=== PATIENT | female | born 1990 | race Caucasian/White ===

== ENCOUNTER 2021-02-21 11:00 | Emergency (ER) | payer SELFPAY ==
[2021-02-21 11:07] VITALS: BP 127/88; PULSE 85; RESP 16; TEMP 36.8; O2SAT 99
[2021-02-21 11:12] VITALS: BP 127/88; PULSE 85; RESP 16; TEMP 36.8; O2SAT 99
--- NOTE | 2021-02-21 11:33 | ED.EAR ---
HPI - Ear Problem General Chief complaint: Ear Stated complaint: ear pain/quintero Time Seen by Provider: 02/21/21 11:17 Source: patient and RN notes reviewed Mode of arrival: ambulatory Limitations: no limitations History of Present Illness HPI Narrative: Patient presents today with a 1 week history of right ear pain. Denies decreased hearing. Reports pain started after she had been swimming a lot on vacation. Denies drainage from the ear. She has been taking Tylenol without relief. Currently rates her pain 8/10. Believed initially that her pain was due to a migraine, but had taken her rescue migraine medication without relief as well. Denies any sick symptoms to include congestion, rhinorrhea, sore throat. MD Complaint: ear pain Related Data Home Medications Medication Instructions Recorded Confirmed erenumab-aooe 140 mg/mL 140 mg SUBCUT MONTHLY 05/18/20 02/21/21 subcutaneous auto-injector propranolol 20 mg tablet 20 mg PO Q12H 05/18/20 02/21/21 sumatriptan succinate 100 mg tablet See Rx Instructions PO .COMPLEX 05/18/20 02/21/21 Allergies Allergy/AdvReac Type Severity Reaction Status Date / Time amitriptyline Allergy Unknown Hallucinati Verified 02/21/21 11:11 ons Sulfa (Sulfonamide Allergy Unknown Unknown Verified 02/21/21 11:11 Antibiotics) sulfasalazine Allergy Unknown Hallucinati Verified 02/21/21 11:11 ons Review of Systems Review of Systems: Narrative: CONSTITUTIONAL: Denies body aches, fever, chills, or sweats. EYES: Denies visual changes, redness, or discharge. ENT: Denies rhinorrhea, congestion, sore throat. + Right ear pain CARDIOVASCULAR: Denies chest pain, palpitations, or edema. RESPIRATORY: Denies cough or dyspnea. GASTROINTESTINAL: Denies abdominal pain, nausea, vomiting, or diarrhea. GENITOURINARY: Denies dysuria or hematuria. SKIN: Denies rash, itching, or wounds. MUSCULOSKELETAL: Denies back pain, joint pain, or myalgia. NEUROLOGIC: Denies headache, numbness, tingling, or weakness. PSYCH: Denies depression or anxiety. [facility] Past Medical History Medical History Anxiety Intermittent asthma without complication Migraine, unspecified, intractable, with status migrainosus Family History Family History Father Diabetes mellitus Hypertension Family history of malignant neoplasm Mother Hypertension Social History Social History Smoking status: Former smoker Alcohol intake: never Comments At time of signature, I have reviewed and agree with nursing past medical, surgical, social and family history unless otherwise noted. Please see nursing chart for further information. There is no relevant family history pertinent to the presenting complaint Exam Narrative: Exam Narrative: GENERAL: Well-appearing, well-nourished, and in no acute distress. HEAD: Normocephalic, atraumatic. EYES: EOMI. No redness or drainage. Conjunctivae normal. ENT: Mucous membranes pink and moist. Nares clear. No rhinorrhea. Left TM normal. Right TM is dull and severely bulging. Canal is normal. Patient localizes her pain to the area of the eustachian tube. Throat normal. Uvula midline. NECK: Normal AROM. Supple. No lymphadenopathy. CHEST: No respiratory distress. Clear to auscultation. HEART: Regular rate and rhythm. No murmur appreciated. Normal peripheral pulses. EXTREMITIES: Normal range of motion. No edema. SKIN: Warm, dry, no rash. Capillary refill normal. Normal skin turgor. NEURO: No focal deficits. Alert and oriented x3. Gait steady. PSYCH: Normal affect. No signs of depression or anxiety. Course Vital Signs Vital signs: Vital Signs Temperature 98.2 F 02/21/21 11:07 Pulse Rate 85 02/21/21 11:07 Respiratory Rate 16 02/21/21 11:07 Blood Pressure 127/88 02/21/21 11:07 Pulse
== END 2021-02-21 11:43 | disposition home or self-care (01) ==
PROVIDERS: Emergency Provider Nurse Practitioner
DX: H66.91 Otitis media, unspecified, right ear (principal); F41.9 Anxiety disorder, unspecified; J45.909 Unspecified asthma, uncomplicated
CPT/HCPCS: 99213; G0463

== ENCOUNTER → 2021-07-21 09:40 | Outpatient (CLI) | payer OTHER, SELFPAY ==
[2021-07-21 19:47] LABS: SARS-CoV-2 RNA PCR Negative
== END ==
PROVIDERS: PCP Nurse Practitioner; Visit Provider Nurse Practitioner Family
DX: J02.9 Acute pharyngitis, unspecified (principal); Z20.822 Contact with and (suspected) exposure to COVID-19
CPT/HCPCS: C9803; U0003; U0005

== ENCOUNTER 2022-05-06 06:43 | Emergency (ER) | payer OTHER, SELFPAY ==
--- NOTE | ~2022-05-06 | CT_ITS ---
EXAMINATION: CTA brain carotid DATE: 05/06/2022 10:53 CDT INDICATION: Left-sided vision loss and numbness. TECHNIQUE: Computed tomographic angiography (CTA) of the head was performed with 200 mL Omnipaque-350 intravenous contrast. CTA of the neck was performed with intravenous contrast. The dose-length produ ct was 1044.76 mGy-cm. Maximum intensity projection and volume rendered 3D-reconstructions were creat ed by the technologist on a separate workstation. COMPARISON: CT dated 05/06/2022. FINDINGS: HEAD CTA: MRA OF THE BRAIN FINDINGS: There is relatively normal and symmetrical flow seen within the anterior cerebral, middle c erebral and posterior cerebral arteries. The flow signals within the intracranial segments of the in ternal carotid arteries and the basilar artery are within normal limits. There are no focal abnormal ities to suggest a hemodynamically significant stenosis or aneurysm about the false pass of Ramos. NECK CTA: The aortic arch is unremarkable. The vertebral arteries are symmetric without evidence for significant stenosis, occlusion or dissection. The vertebral arteries are codominant. The common, int ernal and extra carotid arteries are within normal limits. No significant stenosis, occlusion or diss ection. Thyroid gland is unremarkable. Lung apices are unremarkable. Orbits are symmetric. There is d isconjugate gaze. There is 0% stenosis of the proximal right internal carotid artery relative to normal distal artery l umen diameter (NASCET criteria). There is 0% stenosis of the proximal left internal carotid artery re lative to normal distal artery lumen diameter. IMPRESSION: 1: Unremarkable CT angiography of the head and neck. No significant stenosis, occlusion, dissection o r aneurysm. Reviewed, dictated and finalized at location A. IMPRESSION: 1: Unremarkable CT angiography of the head and neck. No significant stenosis, o cclusion, dissection or aneurysm.
--- NOTE | ~2022-05-06 | CT_ITS ---
EXAMINATION: CT BRAIN W/O DATE: 05/06/2022 07:45 INDICATION: Headache. TECHNIQUE: Computed tomography (CT) of the head was performed without intravenous contrast. The dose- length product was 529.67 mGy-cm. Automated exposure control and iterative reconstruction technique w ere employed. COMPARISON: No prior studies for comparison. FINDINGS: Normal brain parenchymal volume for age. Normal costa-white differentiation. No acute intrac ranial hemorrhage, infarction, mass or mass effect. No ventriculomegaly or midline shift. Midline sagittal images demonstrate a normal corpus callosum, c raniovertebral junction and sella turcica. Basilar cisterns are patent. Paranasal sinuses and mastoids are pneumatized. No depressed skull fractures. IMPRESSION: 1. No acute intracranial abnormality. Reviewed, dictated and finalized at location A.
--- NOTE | ~2022-05-06 | CT_ITS ---
EXAMINATION: CT abdomen pelvis w con DATE: 05/06/2022 10:35 INDICATION: Right-sided abdomen pain. TECHNIQUE: Computed tomography (CT) of the abdomen and pelvis was performed with 200 cc Omnipaque 350 intravenous contrast. The dose-length product was 1024.79 mGy-cm. Automated exposure control and ite rative reconstruction technique were employed. COMPARISON: None. FINDINGS: Lung bases are unremarkable. No significant pleural or pericardial effusion. Heart size is normal. No significant vascular abnormality. No lymphadenopathy. There are gallstones. There is hepat ic steatosis. Mild gallbladder wall thickening. Consider cholecystitis in the appropriate clinical se tting. There is a small subcentimeter hypodensity of the right hepatic lobe, most likely benign. The spleen, pancreas, adrenal glands and kidneys are unremarkable. Nonobstructive bowel pattern. Ureters are normal in course and caliber. Bladder is unremarkable. No abnormal pelvic masses or fluid collect ions. No acute osseous abnormality. IMPRESSION: 1. Cholelithiasis with mild gallbladder wall thickening. Consider cholecystitis in the appropriate cl inical setting. Reviewed, dictated and finalized at location A. IMPRESSION: 1. Cholelithiasis with mild gallbladder wall thickening. Consider cholecystitis in the appropriate clinical setting.
--- NOTE | ~2022-05-06 | XR_ITS ---
EXAMINATION: XR chest 1V portable 05/06/2022 08:12 INDICATION: Right lower chest pain PROCEDURE: AP portable chest COMPARISON: No prior studies for comparison. FINDINGS: The lungs are clear. The cardiomediastinal silhouette is within normal limits. There are no pleural effusions. There is no pneumothorax suspected. IMPRESSION: 1: NO ACUTE CARDIOPULMONARY DISEASE. Reviewed, dictated and finalized at location A.
[2022-05-06 06:48] VITALS: BP 156/87; PULSE 53; RESP 18; TEMP 36.5; O2SAT 100
--- NOTE | 2022-05-06 07:12 | ECG_ITS ---
Measurements Intervals [place] Rate: 60 P: 26 NC: 136 QRS: 28 QRSD: 86 T: 64 QT: 394 QTc: 394 Interpretive Statements SINUS RHYTHM WITH SINUS ARRHYTHMIA NORMAL ECG NO PREVIOUS ECG AVAILABLE FOR COMPARISON Electronically Signed On 05-06-2022 7:52:13 CDT by Acosta Stallings M.D.
--- NOTE | 2022-05-06 07:17 | ED.GENADULT ---
HPI - General Adult General Chief complaint: Unspecified Stated complaint: generalized bodyaches Time Seen by Provider: 05/06/22 07:03 Source: RN notes reviewed History of Present Illness HPI narrative: Patient presents emergency department from home for multiple complaints. Patient states that symptoms began approximately midnight tonight. States at that time she developed pain in her right upper back that radiated down into her right abdomen described as sharp and stabbing's been associated with nausea and vomiting times multiple times. Patient states that associated with this she has had she has numbness that extends from her bilateral mid forearms down to her hands she states that she then developed loss of vision out of the left peripheral half of her left eye she states that she has had recurrent episodes of pain that starts in her spine and goes around to her abdomen with nausea vomiting with the numbness in her hands and that she has been evaluated by neurology before [facility] the [facility] and is now [facility] neurology at [facility]. She states that the loss of vision on the left half of her eye is a new symptom to her today patient not taking medication at home for the symptoms she denies any weakness of the extremities she denies any facial droop or slurred speech she does states she has a history of migraines Related Data Home Medications Medication Instructions Recorded Confirmed erenumab-aooe 140 mg/mL 140 mg subcut MONTHLY 05/18/20 11/21/21 subcutaneous auto-injector (Aimovig Autoinjector) sumatriptan succinate 100 mg See Rx Instructions PO .COMPLEX 05/18/20 11/21/21 tablet (Imitrex) ubrogepant 100 mg tablet (Ubrelvy) 100 mg PO ONCE 06/28/21 11/21/21 cyclobenzaprine 10 mg tablet 10 mg PO TID 11/21/21 11/21/21 lorazepam 1 mg tablet (Ativan) 1 mg PO DAILY PRN 11/21/21 11/21/21 oxycodone 10 mg tablet 10 mg PO Q8H PRN 11/21/21 11/21/21 Allergies Allergy/AdvReac Type Severity Reaction Status Date / Time Sulfa (Sulfonamide Allergy Unknown Unknown Verified 05/06/22 06:58 Antibiotics) amitriptyline AdvReac Unknown Hallucinati Verified 05/06/22 07:15 ons sulfasalazine AdvReac Unknown Hallucinati Verified 05/06/22 07:15 ons Review of Systems Review of Systems: Gen.: Denies fevers or chills Eyes: See HPI ENT: Denies congestion Respiratory: Denies shortness of breath or cough CV: Denies chest pain or palpitations GI: Reports abdominal pain nausea vomiting denies diarrhea denies burning, urgency, frequency or hematuria Musculoskeletal: Denies back pain or muscle pain Neuro: Reports numbness from the bilateral mid forearms down through the hands Skin: Denies rash Except as documented, all other systems reviewed and negative [facility] Past Medical History Medical History Anxiety Intermittent asthma without complication Migraine, unspecified, intractable, with status migrainosus Surgical History Surgical History History of decompression of ulnar nerve Family History Family History Father Diabetes mellitus Hypertension Family history of malignant neoplasm Mother Hypertension Social History Social History Smoking status: Former smoker Alcohol intake: never Exam Narrative: APPEARANCE: No acute distress, nontoxic, resting in bed HEENT: Normocephalic, atraumatic, OMM, TMs clear bilaterally EYES: PERRL, EOMI no conjunctival erythema the right eye with full visual negrete the left eye has loss of the lateral visual negrete NECK: Supple, nontender, full range of motion without pain, no meningismus RESPIRATORY: No respiratory distress, clear to auscultation bilaterally with no rhonchi wheezing or rales CARDIOVASCULAR: RRR s murmur ABDOMINAL: Soft, nondistend
[2022-05-06 08:09] LABS: Add Urine Microscopic? YES; Appearance Urine Cloudy (Clear); Bacteria Urine Trace /hpf; Bilirubin Urine Negative (Negative); Blood Urine Negative (Negative); Color Urine Yellow (Yellow); Glucose Urine UA Negative (Negative); Ketones Urine Trace mg/dL (Negative); Leukocyte Esterase Ur Negative LEU/UL (Negative); Mucus Urine Few /lpf; Nitrate Urine Negative (Negative); Protein Urine Negative (Negative); Specific Grav Ur 1.015 (1.001-1.035); Squamous Epithelial Cell Urine Rare /hpf (Few); Urobilinogen Urine Negative mg/dL (<2.0); WBC Urine 0-3 /hpf
[2022-05-06 08:10] LABS: Basophils Percent Auto 0.4 % (0.2-1.2); Eosinophils Absolute Auto 0.1 K/mm3 (0-0.3); Eosinophils Percent Auto 0.7 % (0-4.4); Hematocrit 43.3 % (37.0-47.0); Hemoglobin 15.2 g/dL (12.0-15.0); Immature Granulocyte Absolute 0.05 K/mm3 (0.00-0.031); Immature Granulocyte Percent A 0.5 % (0-0.5); Lymphocytes Absolute Auto 1.37 K/mm3 (0.9-3.2); Lymphocytes Percent Auto 13.1 % (18.3-44.2); Mean Corpuscular HGB Conc 35.1 g/dl (32-36); Mean Corpuscular Hemoglobin 31.2 pg (26-34); Mean Corpuscular Volume 88.9 fl (80-100); Mean Platelet Volume 9.4 fl (7.4-10.4); Monocytes Absolute Auto 0.5 K/mm3 (0.1-0.6); Monocytes Percent Auto 4.3 % (2.6-8.5); Neutrophils Absolute Auto 8.4 K/mm3 (1.3-6.7); Platelet Count Result 321 k/mm3 (150-375); Red Blood Count 4.87 M/mm3 (4.2-5.4); Red Cell Distribution Width 12.4 % (11.5-14.5); White Blood Count 10.4 K/mm3 (4.5-10.0)
[2022-05-06 08:20] LABS: Alanine Aminotransferase 39 U/L (6-35); Albumin Level 4.9 g/dL (3.5-5.1); Alkaline Phosphatase 75 U/L (38-126); Anion Gap 12 mmol/L (8-16); Aspartate Amino Transferase 33 U/L (14-36); Bilirubin,Total 0.6 mg/dL (0.2-1.3); Blood Urea Nitrogen 9 mg/dL (7-17); Calcium 9.3 mg/dL (8.4-10.2); Carbon Dioxide 26 mmol/L (22-30); Chloride 102 mmol/L (98-107); Estimated CRCL calculation 96 ml/min; Estimated Glomerular Filt Rate > 60; Glucose 122 mg/dL (65-110); Lipase 44 U/L (23-300); Potassium 3.6 mmol/L (3.4-5.0); Sodium 140 mmol/L (137-145)
[2022-05-06 08:24] LABS: INR 0.9; Prothrombin Time 12.2 Seconds (11.1-14.7)
[2022-05-06 08:25] LABS: Partial Thromboplastin Time 26.7 SECONDS (22.3-36.8)
[2022-05-06 08:31] LABS: Troponin I < 0.012 ng/mL (0.000-0.034)
[2022-05-06] MEDS: ONDANSETRON INJ 4 MG/2 ML VIAL IV PUSH ×2 (08:37→16:04)
[2022-05-06] MEDS: SODIUM CHLORIDE 0.9% IV 1,000 ML 999 ML IV CONT (08:38)
[2022-05-06] MEDS: MORPHINE SULFATE (*CRX) 2 MG/ML INJ IV PUSH ×2 (11:31→12:15)
[2022-05-06 11:37] VITALS: BP 103/77; PULSE 92; RESP 14; O2SAT 98
[2022-05-06 12:18] VITALS: BP 122/93; PULSE 111; RESP 15; O2SAT 98
--- NOTE | 2022-05-06 13:50 | PC.NURSE ---
attempted to have pt transferred to [place] per her request. [place] transfer access line states they are refusing any pt's unless they are a trauma case. Pt & Dr Bhatt informed of refusal of transfer.
[2022-05-06 14:35] VITALS: BP 122/93; PULSE 112; RESP 14; O2SAT 97
[2022-05-06] MEDS: SODIUM CHLORIDE 0.9% IV 1,000 ML 125 ML IV CONT (15:10)
[2022-05-06 15:11] VITALS: BP 108/76; PULSE 80; RESP 16; O2SAT 98
[2022-05-06 15:52] LABS: SARS-CoV-2 RNA PCR Negative
[2022-05-06] MEDS: MORPHINE SULFATE (*CRX) 4 MG/ML INJ IV PUSH (16:04)
[2022-05-06 17:40] VITALS: BP 121/80; PULSE 84; RESP 18; O2SAT 99
--- NOTE | 2022-05-06 19:08 | PC.NURSE ---
[facility] (formerly [facility] here
== END 2022-05-06 19:20 | disposition short-term general hospital (02) ==
PROVIDERS: Emergency Provider Emergency Medicine; PCP Nurse Practitioner
DX: K80.00 Calculus of gallbladder with acute cholecystitis without obstruction (principal); R20.2 Paresthesia of skin; H53.122 Transient visual loss, left eye; Z20.822 Contact with and (suspected) exposure to COVID-19; J45.20 Mild intermittent asthma, uncomplicated; F41.9 Anxiety disorder, unspecified; Z87.891 Personal history of nicotine dependence
CPT/HCPCS: 36415; 70450; 70496; 70498; 71045; 74177; 80053; 81001; 81025; 83690; 84484; 85025; 85610; 85730; 93005; 96361; 96365; 96367; 96375; 96376; 99285; C9803; J0131; J2270; J2405; J2543; J7030; Q9967; U0003; U0005

== ENCOUNTER 2023-02-23 09:22 | Outpatient (CLI) | payer OTHER, SELFPAY ==
[2023-02-23 18:17] LABS: Alanine Aminotransferase 48 U/L (6-35); Albumin Level 4.4 g/dL (3.5-5.1); Alkaline Phosphatase 60 U/L (38-126); Anion Gap 7 mmol/L (8-16); Aspartate Amino Transferase 41 U/L (14-36); Blood Urea Nitrogen 7 mg/dL (7-17); Calcium 8.9 mg/dL (8.4-10.2); Carbon Dioxide 28 mmol/L (22-30); Chloride 102 mmol/L (98-107); Cholesterol 177 mg/dL (0-200); Estimated Glomerular Filt Rate > 60; Glucose 91 mg/dL (65-110); HDL Direct 41 mg/dL; Potassium 3.7 mmol/L (3.4-5.0); Sodium 137 mmol/L (137-145); Triglycerides 98 mg/dL (<150)
[2023-02-23 18:24] LABS: Basophils Absolute Auto 0.1 K/mm3 (0.0-0.1); Basophils Percent Auto 0.8 % (0.2-1.2); Eosinophils Absolute Auto 0.1 K/mm3 (0-0.3); Hematocrit 44.4 % (37.0-47.0); Hemoglobin 15.2 g/dL (12.0-15.0); Immature Granulocyte Absolute 0.02 K/mm3 (0.00-0.031); Immature Granulocyte Percent A 0.3 % (0-0.5); Lymphocytes Absolute Auto 2.14 K/mm3 (0.9-3.2); Lymphocytes Percent Auto 34.9 % (18.3-44.2); Mean Corpuscular HGB Conc 34.2 g/dl (32-36); Mean Corpuscular Hemoglobin 30.9 pg (26-34); Mean Corpuscular Volume 90.2 fl (80-100); Monocytes Absolute Auto 0.4 K/mm3 (0.1-0.6); Monocytes Percent Auto 6.7 % (2.6-8.5); Neutrophils Absolute Auto 3.4 K/mm3 (1.3-6.7); Neutrophils Percent Auto 55.3 % (45.5-73.1); Platelet Count Result 325 k/mm3 (150-375); Red Blood Count 4.92 M/mm3 (4.2-5.4); Red Cell Distribution Width 12.2 % (11.5-14.5); White Blood Count 6.1 K/mm3 (4.5-10.0)
[2023-02-23 18:44] LABS: Thyroid Stimulating Hormone 0.709 uIU/mL (0.465-4.680)
[2023-02-23 19:41] LABS: LDL Cholesterol Direct 109 mg/dL
[2023-02-23 19:54] LABS: Hemoglobin A1C 5.4 % (<5.7)
== END 2023-02-23 09:23 | disposition home or self-care (01) ==
LOC: ANHGOSHLAB 09:23
PROVIDERS: PCP Family Medicine; Visit Provider Nurse Practitioner Family
DX: Z00.00 Encounter for general adult medical examination without abnormal findings (principal); R73.09 Other abnormal glucose
CPT/HCPCS: 36415; 80053; 80061; 83036; 84443; 85025

== ENCOUNTER 2023-05-17 10:49 | Outpatient (CLI) | payer OTHER, SELFPAY ==
[2023-05-17 19:11] LABS: Vitamin D 25 Hydroxy 34.4 ng/mL
[2023-05-17 19:32] LABS: Alanine Aminotransferase 49 U/L (6-35); Albumin Level 4.8 g/dL (3.5-5.1); Alkaline Phosphatase 56 U/L (38-126); Anion Gap 8 mmol/L (8-16); Aspartate Amino Transferase 40 U/L (14-36); Blood Urea Nitrogen 10 mg/dL (7-17); Calcium 9.1 mg/dL (8.4-10.2); Carbon Dioxide 28 mmol/L (22-30); Chloride 101 mmol/L (98-107); Estimated Glomerular Filt Rate > 60; Glucose 103 mg/dL (65-110); Potassium 3.7 mmol/L (3.4-5.0); Sodium 137 mmol/L (137-145)
== END 2023-05-17 10:50 | disposition home or self-care (01) ==
LOC: ANHGOSHLAB 10:50
PROVIDERS: PCP Family Medicine; Visit Provider Family Medicine
DX: R74.8 Abnormal levels of other serum enzymes (principal); E53.8 Deficiency of other specified B group vitamins; E55.9 Vitamin D deficiency, unspecified
CPT/HCPCS: 36415; 80053; 82306; 82607

== ENCOUNTER 2024-07-21 15:29 | Outpatient (CLI) | payer OTHER, SELFPAY ==
--- NOTE | ~2024-07-21 | US_ITS ---
Right neck ULTRASOUND Ordering provider: Sloane Max MD History: . R59.0 - Localized enlarged lymph nodes . Comparison: None. FINDINGS/impression: No masses seen. Small lymph node is seen in the posterior neck measuring 0.6 x 0.7 x 0.2 cm Reviewed, dictated and finalized at location A. [employer]
== END 2024-07-21 15:30 | disposition home or self-care (01) ==
PROVIDERS: PCP Family Medicine; Visit Provider Family Medicine
DX: R59.0 Localized enlarged lymph nodes (principal)
CPT/HCPCS: 76536

== ENCOUNTER 2024-08-17 08:06 | Emergency (ER) | payer OTHER, SELFPAY ==
[2024-08-17 08:16] VITALS: BP 119/86; PULSE 103; RESP 18; TEMP 36.6; O2SAT 99
[2024-08-17 08:24] LABS: EDUAAPPEAR Clear; EDUABILI 1+ (Negative); EDUABLOOD 1+ (Negative); EDUACOLOR1 Amber; EDUAGLUCOSE Negative (Negative); EDUAKETONE 2+ (Negative); EDUALEUKO Negative (Negative); EDUANITRATE Negative (Negative); EDUAPH 5.5; EDUAPROTEIN Trace (Negative); EDUAUROBILI 0.2
--- NOTE | 2024-08-17 08:33 | ED_ITS ---
HPI - Female Genitourinary General Chief complaint: Urogenital-Female Stated complaint: Uti Symptoms Time Seen by Provider: 08/17/24 08:16 Source: patient and RN notes reviewed Mode of arrival: ambulatory Limitations: no limitations History of Present Illness HPI Narrative: Patient presents today complaining of a 2 day history of suprapubic discomfort, urinary frequency with decreased urine output, and urethral discomfort after urinating. She has tried no [id number] treatment prior to arrival. Related Data Home Medications ?Medication ?Instructions ?Recorded ?Confirmed ?Last Taken ?Type erenumab-aooe 140 mg/mL 140 mg subcut MONTHLY 05/18/20 08/17/24 Unknown History subcutaneous auto-injector (Aimovig Autoinjector) sumatriptan succinate 100 mg See Rx Instructions PO .COMPLEX 05/18/20 07/17/24 Unknown History tablet (Imitrex) ubrogepant 100 mg tablet (Ubrelvy) 100 mg PO ONCE PRN 01/18/24 07/17/24 Unknown History Allergies Allergy/AdvReac Type Severity Reaction Status Date / Time Sulfa (Sulfonamide Allergy Unknown Unknown Verified 08/17/24 08:23 Antibiotics) amitriptyline AdvReac Unknown Hallucinati Verified 08/17/24 08:23 ons sulfasalazine AdvReac Unknown Hallucinati Verified 08/17/24 08:23 ons Review of Systems Review of Systems: CONSTITUTIONAL: Denies body aches, fever, chills, or sweats. EYES: Denies visual changes, redness, or discharge. ENT: Denies rhinorrhea, congestion, sore throat, or otalgia. CARDIOVASCULAR: Denies chest pain, palpitations, or edema. RESPIRATORY: Denies cough or dyspnea. GASTROINTESTINAL: Denies abdominal pain, nausea, vomiting, or diarrhea. GENITOURINARY: + suprapubic pain, frequency, decreased urine output, pain after urinating SKIN: Denies rash, itching, or wounds. MUSCULOSKELETAL: Denies back pain, joint pain, or myalgia. NEUROLOGIC: Denies headache, numbness, tingling, or weakness. PSYCH: Denies depression or anxiety. [facility] Past Medical History Medical History Attention deficit disorder (ADD) Anxiety Intermittent asthma without complication Migraine, unspecified, intractable, with status migrainosus Surgical History Surgical History History of cholecystectomy History of decompression of ulnar nerve Family History Family History Father Diabetes mellitus Hypertension Family history of malignant neoplasm Mother Hypertension Social History Social History Social History: Caffeine- coffee Smoking status: Former smoker Alcohol intake: never Substance use: never Substance use type: does not use Lack of Transportation: No Lack of Food: Never True Current Housing: I Have Housing Concerned About Future Housing: No Difficulty Paying Gas/Electric Bills: No Difficulty Paying for Meds: No Currently Unemployed: No Education: High School Diploma/GED Difficulty w/ Childcare or Family Care: No Agree to blood products: Yes Comments At time of signature, I have reviewed and agree with nursing past medical, surgical, social and family history unless otherwise noted. Please see nursing chart for further information. There is no relevant family history pertinent to the presenting complaint Exam Narrative: GENERAL: Well-appearing, well-nourished, and in no acute distress. HEAD: Normocephalic, atraumatic. EYES: EOMI. No redness or drainage. Conjunctivae normal. ENT: Mucous membranes pink and moist. NECK: Normal AROM. CHEST: No respiratory distress. Clear to auscultation. HEART: Regular rate and rhythm. No murmur appreciated. Normal peripheral pulses. ABDOMEN: Soft, nondistended, normal active bowel sounds. -CVAT+ suprapubic tenderness EXTREMITIES: Normal range of motion. No edema. SKIN: Warm, dry, no rash. Capillary refill normal. Normal skin turgor. NEURO: No focal deficits. Alert and oriented x3. Gait steady. PSYCH: Normal affect. No signs of depression or anxiety. Course Course Level of Care: Express Care Visit Vital Signs Vital signs: Vital Signs Temperature 98 F 08/17/24 08:16 Pulse Rate 103 H 08/17/24 08:16 Respiratory Rate 18 08/17/24 08:16 Blood Pressure 119/86 08/17/24 08:16 Pulse Oximetry 99 08/17/24 08:16 Temperature 98 F 08/17/24 08:16 Pulse Rate 103 H 08/17/24 08:16 Respiratory Rate 18 08/17/24 08:16 Blood Pressure 119/86 08/17/24 08:16 Pulse Oximetry 99 08/17/24 08:16 Reviewed MDM - Female Genitourinary MDM Narrative Medical decision making narrative: Urine negative. Urinalysis shows trace protein, 1+ blood, 2+ ketones and bilirubin, along with patient's complaints and exam, is consistent with UTI. She will be started on a course of Augmentin. Urine culture pending. Anticipatory guidance given. Differential Diagnosis Differential diagnosis: Likely urinary tract infection, vaginitis and cystitis Lab Data Attestation: I reviewed the patient's lab results. Labs: Lab Results 08/17/24 Range/Units 08:21 POC Urine Color Hafsa POC Urine Clarity Clear POC Urine pH 5.5 POC Ur Specif [place] 1.030 POC Urine Protein Trace (Negative) POC Ur Glucose (UA) Negative (Negative) POC Urine Ketones 2+ (Negative) POC Urine Blood 1+ (Negative) POC Urine Nitrite Negative (Negative) POC Urine Bilirubin 1+ (Negative) POC Urine Urobilinogen 0.2 POC U Leukocyte Esteras Negative (Negative) Critical Care Time Critical Care Time Critical Care Time: No Discharge Plan Discharge Clinical Impression: Urinary tract infection Qualifiers: Urinary tract infection type: acute cystitis Hematuria presence: with hematuria Qualified Code(s): N30.01 - Acute cystitis with hematuria Patient Disposition: Home, Self-Care Condition: Stable Instructions: Antibiotic Form, Urinary Tract Infection in Women (ED) Additional Instructions: Your urine shows infection today. Take Augmentin as prescribed until gone. Your urine will be sent of for a culture to identify what type of bacteria is causing your infection. If the culture shows that your medication will not get rid of your infection, you will be notified and a new antibiotic will be called in for you. If your symptoms worsen to include fever, sweats, chills, nausea, vomiting, severe abdominal or back pain, please go to the ER for further evaluation. You may also try some Azo or Uristat for discomfort. Your blood pressure was elevated above 120/80 today at Urgent Care. This puts you above the threshold for follow up. Please schedule a followup visit with your personal physician as soon as possible, for further evaluation and treatment. Even blood pressure exceeding 120/80 may indicate pre-hypertension. Patient Language: Georgian Prescriptions: New amoxicillin-pot clavulanate 875-125 mg tablet 1 tablet PO Q12H 7 Days Qty: 14 0RF No Action Aimovig Autoinjector 140 mg/mL auto-injector 140 mg subcut MONTHLY sumatriptan succinate [Imitrex] 100 mg tablet See Rx Instructions PO .COMPLEX Rx Instructions: take 1 tab at onset of headache; if no relief, may repeat 1 tab after at least 2 hrs; max = 2 tabs/24 hrs PO albuterol sulfate [ProAir HFA] 90 mcg/actuation HFA aerosol inhaler 1 inh inhalation Q4H PRN (Reason: shortness of breath or wheezing) Qty: 6.7 5RF Ubrelvy 100 mg tablet 100 mg PO ONCE PRN Rx Instructions: as a single dose; may repeat once in >=2 hours after first dose if needed propranolol 20 mg tablet 20 mg PO Q12H Qty: 180 0RF lorazepam 0.5 mg tablet 0.5 mg PO DAILY PRN (Reason: anxiety) Qty: 5 0RF dextroamphetamine-amphetamine [Adderall XR] 10 mg capsule,extended release 24hr 10 mg PO QAM Qty: 30 0RF Follow-up/Referrals: Sloane Max MD [Primary Care Provider] - Time of Disposition: 08:36
[2024-08-17 08:34] LABS: BEDSIDEPREGUCG Negative (Negative)
== END 2024-08-17 08:40 | disposition home or self-care (01) ==
PROVIDERS: Emergency Provider Nurse Practitioner; PCP Family Medicine
DX: N30.01 Acute cystitis with hematuria (principal); Z87.891 Personal history of nicotine dependence
CPT/HCPCS: 81003; 81025; 87086; 99213; G0463

== ENCOUNTER 2024-08-17 11:38 | Emergency (ER) | payer OTHER, SELFPAY ==
--- NOTE | ~2024-08-17 | CT_ITS ---
EXAMINATION: CT abdomen pelvis wo con DATE: 08/17/2024 14:10 INDICATION: Hematuria TECHNIQUE: Computed tomography (CT) of the abdomen and pelvis was performed without intravenous contr ast. Automated exposure control and iterative reconstruction technique were employed. The dose-length product was 186.51 mGy-cm. COMPARISON: 05/06/2022. FINDINGS: Lower thorax: Unremarkable Liver: Normal. Biliary/Gallbladder: Gallbladder is absent. No bile duct dilation. Pancreas: No mass or duct dilation. Spleen: Normal. Adrenals:No mass. Kidneys: No suspicious mass, obstructing stone, or hydronephrosis. GI tract: No small or large bowel dilation. Normal appendix. Mesentery/Peritoneum: No ascites, mass, or free air. Retroperitoneum: No mass. Pelvis: Pelvic organs are within normal limits. Soft Tissues: Soft tissues and body wall unremarkable. Bones: No acute osseous finding. IMPRESSION: No acute abdominopelvic process detected. Reviewed, dictated and finalized at location [facility]. ES 9 THRU 12 VISITING TEACHER
[2024-08-17 12:03] VITALS: BP 114/78; PULSE 96; RESP 20; TEMP 36.7; O2SAT 98
[2024-08-17 12:25] LABS: BEDSIDEPREGUCG Negative (Negative)
[2024-08-17 12:27] LABS: Basophils Percent Auto 0.3 % (0.2-1.2); Eosinophils Percent Auto 0.1 % (0-4.4); Hematocrit 42.8 % (37.0-47.0); Hemoglobin 15.2 g/dL (12.0-15.0); Immature Granulocyte Absolute 0.03 K/mm3 (0.00-0.031); Immature Granulocyte Percent A 0.3 % (0-0.5); Lymphocytes Absolute Auto 1.66 K/mm3 (0.9-3.2); Lymphocytes Percent Auto 14.1 % (18.3-44.2); Mean Corpuscular HGB Conc 35.5 g/dl (32-36); Mean Corpuscular Hemoglobin 31.4 pg (26-34); Mean Corpuscular Volume 88.4 fl (80-100); Mean Platelet Volume 9.4 fl (7.4-10.4); Monocytes Absolute Auto 0.6 K/mm3 (0.1-0.6); Neutrophils Absolute Auto 9.5 K/mm3 (1.3-6.7); Neutrophils Percent Auto 80.2 % (45.5-73.1); Platelet Count Result 275 k/mm3 (150-375); Red Blood Count 4.84 M/mm3 (4.2-5.4); Red Cell Distribution Width 11.9 % (11.5-14.5); White Blood Count 11.8 K/mm3 (4.5-10.0)
[2024-08-17 12:33] LABS: Add Urine Microscopic? YES; Appearance Urine Clear (Clear); Bacteria Urine None Seen /hpf; Bilirubin Urine Negative (Negative); Blood Urine 1+ (Negative); Color Urine Yellow (Yellow); Glucose Urine UA Negative (Negative); Ketones Urine 4+ mg/dL (Negative); Leukocyte Esterase Ur Negative LEU/UL (Negative); Nitrate Urine Negative (Negative); Non Pathogenic Casts 0-2; Protein Urine Trace mg/dL (Negative); Specific Grav Ur 1.029 (1.001-1.035); Squamous Epithelial Cell Urine Few /hpf (Few); Urobilinogen Urine 0.2 mg/dL (<2.0); WBC Urine 0-5 /hpf (0-3)
[2024-08-17 12:37] LABS: Alanine Aminotransferase 24 U/L (6-35); Alkaline Phosphatase 47 U/L (38-126); Anion Gap 11 mmol/L (4-12); Aspartate Amino Transferase 33 U/L (14-36); Bilirubin,Total 1.6 mg/dL (0.2-1.3); Blood Urea Nitrogen 13 mg/dL (7-17); Calcium 9.4 mg/dL (8.4-10.2); Carbon Dioxide 24 mmol/L (22-30); Chloride 103 mmol/L (98-107); Estimated CRCL calculation 85 ml/min; Estimated Glomerular Filt Rate > 60; Glucose 109 mg/dL (65-110); Potassium 3.2 mmol/L (3.4-5.0); Sodium 138 mmol/L (137-145)
[2024-08-17] MEDS: LORazepam INJ (*CRX) 2 MG/ML VIAL 0.5 MG IV PUSH (13:43)
[2024-08-17] MEDS: HYDROmorphone HCL INJ (*CRX) 1 MG/ML SYR 0.5 MG IV PUSH (13:43)
--- NOTE | 2024-08-17 14:24 | ED.GENADULT ---
HPI - General Adult General Chief complaint: Urogenital-Female Stated complaint: Pelvic pain, blood in urine, sent by PCP Time Seen by Provider: 08/17/24 13:06 History of Present Illness HPI narrative: 33-year-old female presents to the emergency department for evaluation for suprapubic abdominal pain. Patient denies any specific urinary symptoms. Patient denies any prior history of kidney stones. Patient did notice some hematuria today. Patient denies any vaginal bleeding or vaginal discharge Related Data Home Medications ?Medication ?Instructions ?Recorded ?Confirmed ?Last Taken ?Type erenumab-aooe 140 mg/mL 140 mg subcut MONTHLY 05/18/20 08/17/24 Unknown History subcutaneous auto-injector (Aimovig Autoinjector) sumatriptan succinate 100 mg See Rx Instructions PO .COMPLEX 05/18/20 07/17/24 Unknown History tablet (Imitrex) ubrogepant 100 mg tablet (Ubrelvy) 100 mg PO ONCE PRN 01/18/24 07/17/24 Unknown History Allergies Allergy/AdvReac Type Severity Reaction Status Date / Time Sulfa (Sulfonamide Allergy Unknown Unknown Verified 08/17/24 11:39 Antibiotics) amitriptyline AdvReac Unknown Hallucinati Verified 08/17/24 11:39 ons sulfasalazine AdvReac Unknown Hallucinati Verified 08/17/24 11:39 ons Review of Systems Review of Systems: All systems reviewed & are unremarkable except as noted in HPI and below PMFSH Past Medical History Medical History Attention deficit disorder (ADD) Anxiety Intermittent asthma without complication Migraine, unspecified, intractable, with status migrainosus Surgical History Surgical History History of cholecystectomy History of decompression of ulnar nerve Family History Family History Father Diabetes mellitus Hypertension Family history of malignant neoplasm Mother Hypertension Social History Social History Social History: Caffeine- coffee Smoking status: Former smoker Alcohol intake: never Substance use: never Substance use type: does not use Lack of Transportation: No Lack of Food: Never True Current Housing: I Have Housing Concerned About Future Housing: No Difficulty Paying Gas/Electric Bills: No Difficulty Paying for Meds: No Currently Unemployed: No Education: High School Diploma/GED Difficulty w/ Childcare or Family Care: No Agree to blood products: Yes Exam Narrative: APPEARANCE: Well appearing, no pain, no distress, well-nourished. HEAD: normocephalic, atraumatic. EYES: PERRLA/EOMI, conjunctivae clear. NOSE: Normal no drainage EARS:TMS clear with good light reflex. THROAT: Pharynx clear, no exudate. NECK: Supple. No adenopathy, no masses. RESPIRATORY: Airway patent, respirations nonlabored. Clear to auscultation bilaterally, no rales, rhonchi, wheezing. CARDIOVASCULAR: Regular rate and rhythm without murmurs rubs or gallops. ABDOMINAL: Suprapubic tenderness to palpation MUSCULOSKELETAL: Moves all extremities. Strength/ROM intact, No edema, No calf tenderness. NEURO: Alert. Cranial nerves II through XII intact. Grossly intact SKIN: Warm, dry. Normal Color Course Vital Signs Vital signs: Vital Signs Temperature 98.1 F 08/17/24 12:03 Pulse Rate 96 08/17/24 12:03 Respiratory Rate 20 08/17/24 12:03 Blood Pressure 114/78 08/17/24 12:03 Pulse Oximetry 98 08/17/24 12:03 Oxygen Delivery Room Air 08/17/24 12:03 Temperature 97.9 F 08/17/24 14:41 Pulse Rate 88 08/17/24 14:41 Respiratory Rate 16 08/17/24 14:41 Blood Pressure 118/72 08/17/24 14:41 Pulse Oximetry 100 08/17/24 14:41 Oxygen Delivery Room Air 08/17/24 12:03 Medical Decision Making MDM Narrative Medical decision making narrative: 33-year-old female presents to the emergency department for evaluation for suprapubic abdominal pain. Patient also did have some left CVA tenderness to palpation. Patient was complaining abdominal pain and also anxiety secondary to the abdominal pain. Patient was treated with 0.5 mg of IV Dilaudid along with 0.5 mg of IV lorazepam. Patient was afebrile but does have a leukocytosis of 11.8 and hemoglobin of 15.2. No significant abnormalities on the patient's CMP. UA did show hematuria with no underlying evidence of infection. CT abdomen pelvis was ordered to evaluate for ureteral calculi CT scan was negative. Patient did feel improved with treatment. Patient was prescribed Augmentin by her primary care physician. Patient was updated on the results of her workup. Patient was encouraged close follow-up with her primary care physician potential with Urology to evaluate the hematuria. Differential Diagnosis Differential Diagnosis: Hematuria, urinary tract infection, , ureteral calculus Vital Signs Vital Signs: Vital Signs Temperature 98.1 F 08/17/24 12:03 Pulse Rate 96 08/17/24 12:03 Respiratory Rate 20 08/17/24 12:03 Blood Pressure 114/78 08/17/24 12:03 Pulse Oximetry 98 08/17/24 12:03 Oxygen Delivery Room Air 08/17/24 12:03 Temperature 97.9 F 08/17/24 14:41 Pulse Rate 88 08/17/24 14:41 Respiratory Rate 16 08/17/24 14:41 Blood Pressure 118/72 08/17/24 14:41 Pulse Oximetry 100 08/17/24 14:41 Oxygen Delivery Room Air 08/17/24 12:03 Lab Data Lab results reviewed: Yes I reviewed the patient's lab results. 08/17/24 12:21 08/17/24 12:21 Labs: Lab Results 08/17/24 08/17/24 Range/Units 12:21 12:23 WBC 11.8 H (4.5-10.0) K/mm3 RBC 4.84 (4.2-5.4) M/mm3 Hgb 15.2 H (12.0-15.0) g/dL Hct 42.8 (37.0-47.0) % MCV 88.4 (80-100) fl MCH 31.4 (26-34) pg MCHC 35.5 (32-36) g/dl RDW 11.9 (11.5-14.5) % Plt Count 275 (150-375) k/mm3 MPV 9.4 (7.4-10.4) fl Immature Gran % (Auto) 0.3 (0-0.5) % Neut % (Auto) 80.2 H (45.5-73.1) % Lymph % (Auto) 14.1 L (18.3-44.2) % [place] % (Auto) 5.0 (2.6-8.5) % Eos % (Auto) 0.1 (0-4.4) % Baso % (Auto) 0.3 (0.2-1.2) % Lymph # (Auto) 1.66 (0.9-3.2) K/mm3 [place] # (Auto) 0.6 (0.1-0.6) K/mm3 Eos # (Auto) 0.0 (0-0.3) K/mm3 Baso # (Auto) 0.0 (0.0-0.1) K/mm3 Abs Immat Gran (auto) 0.03 (0.00-0.031) K/mm3 Absolute Neuts (auto) 9.5 H (1.3-6.7) K/mm3 Absolute Nucleated RBC 0.000 (0.0-0.012) K/mm3 Nucleated RBC % 0.0 (0.0-0.2) % Sodium 138 (137-145) mmol/L Potassium 3.2 L (3.4-5.0) mmol/L Chloride 103 (98-107) mmol/L Carbon Dioxide 24 (22-30) mmol/L Anion Gap 11 (4-12) mmol/L BUN 13 (7-17) mg/dL Creatinine 0.62 L (0.7-1.0) mg/dL Estim Creat Clear Calc 85 ml/min Estimated GFR > 60 (59 - ) Glucose 109 (65-110) mg/dL Calcium 9.4 (8.4-10.2) mg/dL Total Bilirubin 1.6 H (0.2-1.3) mg/dL AST 33 (14-36) U/L ALT 24 (6-35) U/L Alkaline Phosphatase 47 (38-126) U/L Total Protein 8.0 (6.3-8.2) g/dL Albumin 5.0 (3.5-5.1) g/dL Urine Color Yellow (Yellow) Urine Appearance Clear (Clear) Urine pH 5.0 (5.0-9.0) Ur Specific [place] 1.029 (1.001-1.035) Urine Protein Trace (Negative) mg/dL Urine Glucose (UA) Negative (Negative) mg/dL Urine Ketones 4+ H (Negative) mg/dL Ur Blood (Man) 1+ H (Negative) Urine Nitrate Negative (Negative) Urine Bilirubin Negative (Negative) Urine Urobilinogen 0.2 (<2.0) mg/dL Leukocyte Esterase Rfl Negative (Negative) GAURAV/UL Urine RBC 3-5 H (0-2) /hpf Urine WBC 0-5 (0-3) /hpf Ur Squamous Epith Cells Few (Few) /hpf Urine Bacteria None seen /hpf Urine Casts 0-2 POC Urine HCG, Qual Negative (Negative) Imaging Data Radiologist's impression: Impressions Abdomen/Pelvis CT 08/17/24 14:11 IMPRESSION: No acute abdominopelvic process detected. Discharge Plan Discharge Clinical Impression: Abdominal pain, suprapubic, Hematuria Patient Disposition: Home, Self-Care Condition: Stable Instructions: Antibiotic Form, Hematuria (ED), Abdominal Pain (ED) Additional Instructions: Tylenol and ibuprofen for pain control. Drink plenty of fluids. Have close follow-up with your primary care physician. If you have any worsening symptoms then please call or return to the emergency department. Patient Language: Faroese Prescriptions: No Action amoxicillin-pot clavulanate 875-125 mg tablet 1 tablet PO Q12H 7 Days Qty: 14 0RF Aimovig Autoinjector 140 mg/mL auto-injector 140 mg subcut MONTHLY sumatriptan succinate [Imitrex] 100 mg tablet See Rx Instructions PO .COMPLEX Rx Instructions: take 1 tab at onset of headache; if no relief, may repeat 1 tab after at least 2 hrs; max = 2 tabs/24 hrs PO albuterol sulfate [ProAir HFA] 90 mcg/actuation HFA aerosol inhaler 1 inh inhalation Q4H PRN (Reason: shortness of breath or wheezing) Qty: 6.7 5RF Ubrelvy 100 mg tablet 100 mg PO ONCE PRN Rx Instructions: as a single dose; may repeat once in >=2 hours after first dose if needed propranolol 20 mg tablet 20 mg PO Q12H Qty: 180 0RF lorazepam 0.5 mg tablet 0.5 mg PO DAILY PRN (Reason: anxiety) Qty: 5 0RF dextroamphetamine-amphetamine [Adderall XR] 10 mg capsule,extended release 24hr 10 mg PO QAM Qty: 30 0RF Follow-up/Referrals: Sloane Max MD [Primary Care Provider] -
[2024-08-17 14:41] VITALS: BP 118/72; PULSE 88; RESP 16; TEMP 36.6; O2SAT 100
== END 2024-08-17 14:42 | disposition home or self-care (01) ==
PROVIDERS: Preventive Medicine Aerospace Medicine; Emergency Provider Emergency Medicine; PCP Family Medicine
DX: R10.30 Lower abdominal pain, unspecified (principal); R31.9 Hematuria, unspecified; J45.20 Mild intermittent asthma, uncomplicated; F98.8 Other specified behavioral and emotional disorders with onset usually occurring in childhood and adolescence; F41.9 Anxiety disorder, unspecified; Z90.49 Acquired absence of other specified parts of digestive tract; Z87.891 Personal history of nicotine dependence; Z79.899 Other long term (current) drug therapy
CPT/HCPCS: 36415; 74176; 80053; 81001; 81025; 85025; 96374; 96375; 99284; J1171; J2060

== ENCOUNTER 2024-08-17 21:57 | Emergency (ER) | payer OTHER, SELFPAY ==
--- NOTE | ~2024-08-17 | US_ITS ---
Pelvic ultrasound. Clinical History: Suprapubic pain Technique: Realtime transvaginal scanning of the pelvis was performed. Color flow Doppler and Doppler spectral analysis were performed. Findings: The uterus is anteverted. The endometrial stripe has a thickness of 12 mm. No focal myomet rial mass is identified. Cervical nabothian cysts are present. The right ovary measures 2.4 x 2.3 x 2.3 cm. No significant right ovarian or adnexal mass is seen. The left ovary measures 3.7 x 2.2 x 2.1 cm. Thick-walled cyst measures 2.1 cm in diameter, possibly c orpus luteal cyst related to stage in the menstrual cycle. There is trace free fluid in the cul de sac. Impression: No significant abnormality seen. Probable 2.1 cm corpus luteal cyst in the left ovary. Trace free fluid. Reviewed, dictated and finalized at [facility]. KLAYER SUPERVISOR Impression: No significant abnormality seen. Probable 2.1 cm corpus luteal cyst in the left ovary. Trace free fluid.
[2024-08-17 22:00] VITALS: BP 125/92; PULSE 99; RESP 16; TEMP 36.6; O2SAT 99
--- NOTE | 2024-08-17 22:21 | ED.NAVMDI ---
HPI - Nausea/Vomiting/Diarrhea General Chief complaint: Nausea/Vomiting/Diarrhea Stated complaint: VOMITING Time Seen by Provider: 08/17/24 22:07 History of Present Illness HPI Narrative: 33-year-old female with history of migraines, anxiety, ADD presents to the emergency department for N/V/D. Patient states she had diarrhea that started yesterday and nausea vomiting today. She is evaluated in our ED for suprapubic abdominal pain and hematuria and discharged home after a negative workup including CT abdomen pelvis, however she did have hematuria on UA. She is prescribed Augmentin by her PCP. States she took the 1st dose at 5:00 p.m. immediately vomited right after. She states she has been unable to hydrate herself since leaving the ED. She contacted her PCP and was advised to come back to the ED. denies flank pain, dysuria, fevers. Denies vaginal discharge or concern for STDs. Related Data Home Medications ?Medication ?Instructions ?Recorded ?Confirmed ?Last Taken ?Type erenumab-aooe 140 mg/mL 140 mg subcut MONTHLY 05/18/20 08/17/24 Unknown History subcutaneous auto-injector (Aimovig Autoinjector) sumatriptan succinate 100 mg See Rx Instructions PO .COMPLEX 05/18/20 07/17/24 Unknown History tablet (Imitrex) ubrogepant 100 mg tablet (Ubrelvy) 100 mg PO ONCE PRN 01/18/24 07/17/24 Unknown History Allergies Allergy/AdvReac Type Severity Reaction Status Date / Time Sulfa (Sulfonamide Allergy Unknown Unknown Verified 08/17/24 11:39 Antibiotics) amitriptyline AdvReac Unknown Hallucinati Verified 08/17/24 11:39 ons sulfasalazine AdvReac Unknown Hallucinati Verified 08/17/24 11:39 ons Review of Systems Review of Systems: All systems reviewed & are unremarkable except as noted in HPI and below PMFSH Past Medical History Medical History Attention deficit disorder (ADD) Anxiety Intermittent asthma without complication Migraine, unspecified, intractable, with status migrainosus Surgical History Surgical History History of cholecystectomy History of decompression of ulnar nerve Family History Family History Father Diabetes mellitus Hypertension Family history of malignant neoplasm Mother Hypertension Social History Social History Social History: Caffeine- coffee Smoking status: Former smoker Alcohol intake: never Substance use: never Substance use type: does not use Lack of Transportation: No Lack of Food: Never True Current Housing: I Have Housing Concerned About Future Housing: No Difficulty Paying Gas/Electric Bills: No Difficulty Paying for Meds: No Currently Unemployed: No Education: High School Diploma/GED Difficulty w/ Childcare or Family Care: No Agree to blood products: Yes Exam Narrative: GENERAL: Well-appearing, well-nourished, and in no acute distress. HEAD: Normocephalic, atraumatic. EYES: EOMI. ENT: Nares clear, no rhinorrhea or epistaxis. Mucous membranes dry NECK: Supple. CHEST: Clear to auscultation. No respiratory distress. HEART: Regular rate and rhythm. No murmur heard. Normal peripheral pulses. ABDOMEN: Normoactive bowel sounds. Abdomen soft with tenderness to the suprapubic region. No rebound, guarding or rigidity. No CVA tenderness EXTREMITIES: Normal range of motion. No edema. SKIN: Warm, dry, no rash. NEURO: No focal deficits. Alert and oriented x3 Course Vital Signs Vital signs: Vital Signs Temperature 97.9 F 08/17/24 22:00 Pulse Rate 99 08/17/24 22:00 Respiratory Rate 16 08/17/24 22:00 Blood Pressure 125/92 H 08/17/24 22:00 Pulse Oximetry 99 08/17/24 22:00 Temperature 97.8 F 08/18/24 01:20 Pulse Rate 66 08/18/24 01:20 Respiratory Rate 18 08/18/24 01:20 Blood Pressure 117/65 08/18/24 01:20 Pulse Oximetry 99 08/18/24 01:20 MDM - Nausea/Vomiting/Diarrhea MDM Narrative Medical decision making narrative: 33-year-old female presents to the emergency department for N/V/D and suprapubic abdominal pain. Patient was seen here earlier today for suprapubic abdominal pain and hematuria. See HPI for further history. Vitals stable. Exam significant for the above. Will repeat lab work an add on pelvic ultrasound rule out ovarian torsion. CT abdomen pelvis from earlier today reviewed by myself and shows no acute intra-abdominal or pelvic process detected. CBC with leukocytosis of 16.1 and hemoconcentration with a hemoglobin of 16.1. Chemistries with mild hypokalemia of 3.3 which is been orally repleted. Magnesium within normal limits. Bicarb low with an elevated anion gap consistent with dehydration. Lipase within normal limits. Viral swabs negative. Transvaginal ultrasound shows good Doppler flow to both ovaries, left ovary does appear to have a 1.5 ovarian hemorrhagic cyst. Viral swabs negative. Patient updated on workup. She received fluids, Zofran, Bentyl with some improvement. She is reporting some residual nausea, will provide IV Reglan and another L of fluids and re-evaluate. Patient reports significant improvement after Reglan and another L of fluids. She is tolerating po intake. She states she feels anxious and is requesting something for anxiety, Ativan provided. Feel she is safe to be discharged home. Discussed supportive care, bland diet, increase fluid intake, close follow-up with PCP. Will provide Reglan for home given this worked well for her. Discussed return precautions. She is agreeable with the plan verbalized understanding. Discharged in stable condition. Lab Data 08/17/24 22:38 08/17/24 22:38 Labs: Lab Results 08/17/24 08/17/24 Range/Units 22:38 22:44 WBC 16.1 H (4.5-10.0) K/mm3 RBC 5.05 (4.2-5.4) M/mm3 Hgb 16.1 H (12.0-15.0) g/dL Hct 44.3 (37.0-47.0) % MCV 87.7 (80-100) fl MCH 31.9 (26-34) pg MCHC 36.3 H (32-36) g/dl RDW 11.9 (11.5-14.5) % Plt Count 310 (150-375) k/mm3 MPV 9.6 (7.4-10.4) fl Immature Gran % (Auto) 0.4 (0-0.5) % Neut % (Auto) 81.0 H (45.5-73.1) % Lymph % (Auto) 11.2 L (18.3-44.2) % [place] % (Auto) 6.8 (2.6-8.5) % Eos % (Auto) 0.3 (0-4.4) % Baso % (Auto) 0.3 (0.2-1.2) % Lymph # (Auto) 1.81 (0.9-3.2) K/mm3 [place] # (Auto) 1.1 H (0.1-0.6) K/mm3 Eos # (Auto) 0.1 (0-0.3) K/mm3 Baso # (Auto) 0.1 (0.0-0.1) K/mm3 Abs Immat Gran (auto) 0.06 H (0.00-0.031) K/mm3 Absolute Neuts (auto) 13.0 H (1.3-6.7) K/mm3 Absolute Nucleated RBC 0.000 (0.0-0.012) K/mm3 Nucleated RBC % 0.0 (0.0-0.2) % Sodium 136 L (137-145) mmol/L Potassium 3.3 L (3.4-5.0) mmol/L Chloride 103 (98-107) mmol/L Carbon Dioxide 14 L (22-30) mmol/L Anion Gap 19 H (4-12) mmol/L BUN 14 (7-17) mg/dL Creatinine 0.64 L (0.7-1.0) mg/dL Estim Creat Clear Calc 83 ml/min Estimated GFR > 60 (59 - ) Glucose 124 H (65-110) mg/dL Calcium 9.8 (8.4-10.2) mg/dL Magnesium 1.8 (1.6-2.3) mg/dL Total Bilirubin 2.1 H (0.2-1.3) mg/dL AST 31 (14-36) U/L ALT 26 (6-35) U/L Alkaline Phosphatase 65 (38-126) U/L Total Protein 8.0 (6.3-8.2) g/dL Albumin 5.2 H (3.5-5.1) g/dL Lipase 56 (23-300) U/L Influenza A (RT-PCR) Negative (Negative) Influenza B (RT-PCR) Negative (Negative) RSV (RT-PCR) Negative (Negative) SARS-CoV-2 RNA (RT-PCR) Negative (Negative) Discharge Plan Discharge Clinical Impression: Gastroenteritis, Dehydration Ovarian cyst Qualifiers: Laterality: left Qualified Code(s): N83.202 - Unspecified ovarian cyst, left side Patient Disposition: Home, Self-Care Condition: Stable Instructions: Antibiotic Form, Dehydration (ED), Gastroenteritis (ED), Acute Nausea and Vomiting (ED) Additional Instructions: Drink plenty of fluids including water, Gatorade and Pedialyte. Eat a bland diet such as bananas, rice, applesauce and toast is clear able to tolerate a normal diet. Take metoclopramide as needed for nausea. Follow-up closely with her primary care provider. Return to the emergency department if you develop worsening or changing abdominal pain, you are unable to tolerate food or fluids, develop a fever, or other concerning symptoms. Patient Language: Citizen Of [place] Prescriptions: New metoclopramide HCl 10 mg tablet 10 mg PO Q6H PRN (Reason: nausea and vomiting) Qty: 14 0RF No Action amoxicillin-pot clavulanate 875-125 mg tablet 1 tablet PO Q12H 7 Days Qty: 14 0RF Aimovig Autoinjector 140 mg/mL auto-injector 140 mg subcut MONTHLY sumatriptan succinate [Imitrex] 100 mg tablet See Rx Instructions PO .COMPLEX Rx Instructions: take 1 tab at onset of headache; if no relief, may repeat 1 tab after at least 2 hrs; max = 2 tabs/24 hrs PO albuterol sulfate [ProAir HFA] 90 mcg/actuation HFA aerosol inhaler 1 inh inhalation Q4H PRN (Reason: shortness of breath or wheezing) Qty: 6.7 5RF Ubrelvy 100 mg tablet 100 mg PO ONCE PRN Rx Instructions: as a single dose; may repeat once in >=2 hours after first dose if needed propranolol 20 mg tablet 20 mg PO Q12H Qty: 180 0RF lorazepam 0.5 mg tablet 0.5 mg PO DAILY PRN (Reason: anxiety) Qty: 5 0RF dextroamphetamine-amphetamine [Adderall XR] 10 mg capsule,extended release 24hr 10 mg PO QAM Qty: 30 0RF Follow-up/Referrals: Sloane Max MD [Primary Care Provider] -
[2024-08-17] MEDS: ONDANSETRON INJ 4 MG/2 ML VIAL IV PUSH (22:37)
[2024-08-17] MEDS: SODIUM CHLORIDE 0.9% IV 1,000 ML 999 ML IV CONT (22:37)
[2024-08-17 22:46] LABS: Basophils Absolute Auto 0.1 K/mm3 (0.0-0.1); Basophils Percent Auto 0.3 % (0.2-1.2); Eosinophils Absolute Auto 0.1 K/mm3 (0-0.3); Eosinophils Percent Auto 0.3 % (0-4.4); Hematocrit 44.3 % (37.0-47.0); Hemoglobin 16.1 g/dL (12.0-15.0); Immature Granulocyte Absolute 0.06 K/mm3 (0.00-0.031); Immature Granulocyte Percent A 0.4 % (0-0.5); Lymphocytes Absolute Auto 1.81 K/mm3 (0.9-3.2); Lymphocytes Percent Auto 11.2 % (18.3-44.2); Mean Corpuscular HGB Conc 36.3 g/dl (32-36); Mean Corpuscular Hemoglobin 31.9 pg (26-34); Mean Corpuscular Volume 87.7 fl (80-100); Mean Platelet Volume 9.6 fl (7.4-10.4); Monocytes Absolute Auto 1.1 K/mm3 (0.1-0.6); Monocytes Percent Auto 6.8 % (2.6-8.5); Platelet Count Result 310 k/mm3 (150-375); Red Blood Count 5.05 M/mm3 (4.2-5.4); Red Cell Distribution Width 11.9 % (11.5-14.5); White Blood Count 16.1 K/mm3 (4.5-10.0)
--- NOTE | 2024-08-17 22:51 | PC.NURSE ---
Discussed with patient NPO, and holding po medications until zofran helps nausea subside.
[2024-08-17] MEDS: DICYCLOMINE HCL 10 MG CAPSULE 20 MG PO (22:58)
[2024-08-17 22:59] LABS: Alanine Aminotransferase 26 U/L (6-35); Albumin Level 5.2 g/dL (3.5-5.1); Alkaline Phosphatase 65 U/L (38-126); Anion Gap 19 mmol/L (4-12); Aspartate Amino Transferase 31 U/L (14-36); Bilirubin,Total 2.1 mg/dL (0.2-1.3); Blood Urea Nitrogen 14 mg/dL (7-17); Calcium 9.8 mg/dL (8.4-10.2); Carbon Dioxide 14 mmol/L (22-30); Chloride 103 mmol/L (98-107); Estimated CRCL calculation 83 ml/min; Estimated Glomerular Filt Rate > 60; Glucose 124 mg/dL (65-110); Lipase 56 U/L (23-300); Potassium 3.3 mmol/L (3.4-5.0); Sodium 136 mmol/L (137-145)
[2024-08-17] MEDS: POTASSIUM CHLORIDE 20 MEQ PACKET (FOR LIQUID) PO (23:27)
[2024-08-17 23:31] VITALS: BP 116/88; PULSE 76; RESP 16; TEMP 36.6; O2SAT 100
[2024-08-17 23:36] LABS: Influenza A QL RT-PCR Negative (Negative); Influenza B QL RT-PCR Negative (Negative); RSV RNA, RT-PCR Negative (Negative); SARS-CoV-2 RNA PCR Negative (Negative)
[2024-08-17 23:40] LABS: Magnesium 1.8 mg/dL (1.6-2.3)
[2024-08-18] MEDS: FAMOTIDINE 20 MG/2 ML VIAL IV PUSH (00:24)
[2024-08-18] MEDS: SODIUM CHLORIDE 0.9% IV 1,000 ML 999 ML IV CONT (00:25)
[2024-08-18] MEDS: METOCLOPRAMIDE HCL INJ 10 MG/2 ML VIAL IV PUSH (00:25)
[2024-08-18 00:49] VITALS: BP 90/51; PULSE 76
[2024-08-18 00:50] VITALS: BP 107/87; PULSE 80
[2024-08-18 00:52] VITALS: BP 112/77; PULSE 90
[2024-08-18] MEDS: LORazepam INJ (*CRX) 2 MG/ML VIAL 0.5 MG IV PUSH (01:01)
[2024-08-18 01:20] VITALS: BP 117/65; PULSE 66; RESP 18; TEMP 36.6; O2SAT 99
--- OUTSIDE RECORDS SUMMARY | 2024-08-21 11:00 | XMS_ITS | CONTINUITY OF CARE DOCUMENT ---
Author Name ry raza Address Unknown Organization [facility] Address [address] [place] [address] [address] [place] [address] Phone [phone] Care Team Providers Care Cashier Or Checker Stock Clerk Name Role Phone Jorge L Rausch MD Unavailable [phone] XAVIER FIELDS MD Unavailable SANDRA REA MD Unavailable PROBLEMS Condition Status Date Provider Notes Palpitations active Jorge L Rausch MD INSURANCE PROVIDERS Payer name Policy type / Coverage type [place] red republican ID CIG[employer] insurance [place] [id number] HISTORY OF PROCEDURES Procedure Date Procedure Name Provider Procedure Notes S tatus ANABELLE Rausch MD c ompleted
--- OUTSIDE RECORDS SUMMARY | 2024-08-21 11:01 | XMS_ITS | Encounter Summary ---
Author Organization [facility] Address [address] [place] [address] Care Team Providers Care Loan Representative Name Role Phone Carmelo Lozada MD Primary Care Provider [phone] Encounter Details Date Type Department Care Team (Late st Contact Info) Description 11/15/2005 Outpatient Historical [facility] [address] [place] [address] Guy Saldivar MD [address] [place] [address] [address] [place] [address] Social History Tobacco Use Types Packs/Day Years Used Date Smoking Tobacco: Never Assessed Comments Unknown Sex and Gender Information Value Date Recorded Sex Assigned at Not on file 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
--- OUTSIDE RECORDS SUMMARY | 2024-08-21 11:01 | XMS_ITS | Clinical Summary ---
Author Organization [facility] Address [address] [place] [address] Phone Care Team Providers Care Dental Equipment Technician Name Role Phone Carmelo Lozada MD Primary Care Provider Allergies Active Allergy Reactions Criticality Noted Date Comments Amitriptyline Other (See Comments) Medium 05/17/2018 Sleep disorder/subjective hallucinations Sulfa (Sulfonamide Antibiotics) Hives,Anaphylaxis High 10/01/2012 Reaction: Hives, Zonisamide Other (See Comments) Medium 05/17/2018 Sleep disorder/sugjective hallucinations Medications LORazepam (ATIVAN) 0.5 mg tablet Take 0.5 mg by mouth every 6 hours as needed for Anxiety. Active SUMAtriptan (IMITREX) 100 mg tablet Take 1 Tablet by mouth Continuous as needed. 08/20/19 Active propranolol (INDERAL) 20 mg tablet Take 20 mg by mouth daily. FOR PREVENTATIVE FOR MIGRANES 2 03/04/20 Active cetirizine HCl (ZYRTEC ORAL) Take 1 Tablet by mouth daily. Active erenumab-aooe (AIMOVIG AUTOINJECTOR) Auto-Injector Inject 140 mg by subcutaneous injection. 03/10/20 Active albuterol HFA 90 mcg inhaler Take 2 Puffs by inhalation 1 time daily as needed. Active oxyCODONE-acetamino phen (PERCOCET) 5-325 mg tabletIndications:D islocation of tarsometatarsal joint of left foot, initial encounter Take 1 Tablet by mouth every 4 hours as needed for moderate pain. Max Daily Amount: 6 Tablets 40 Tablet 9 1:14 PM CDT 04/08/20 19 Active ondansetron (ZOFRAN) 4 mg Tablet Take 1 Tablet (4 mg) by mouth every 8 hours as needed for Nausea/Emesis. 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 Gender Identity Not on file Sexual Orientation Not on file Last Filed Vital Signs Vital Sign Reading Time Taken Comments Blood Pressure 142/76 04/08/2019 1:07 PM CDT Pulse 59 04/08/2019 1:07 PM CDT Temperature 36.1 ??C (97 ??F) 04/08/2019 12:24 PM CDT Respiratory Rate 18 04/08/2019 1:07 PM CDT Oxygen Saturation 100% 04/08/2019 1:07 PM CDT Inhaled Oxygen Concentration - - Weight 78.6 kg (173 lb 4 oz) 04/08/2019 6:11 AM CDT Height 160 cm (5' 3 ) 04/08/2019 6:11 AM CDT Body Mass Index 30.69 04/08/2019 6:11 AM CDT Plan of Treatment Health Maintenance Due Date Last Done Comments DTAP/TDAP/TD VACCINES (1 - Tdap) 11/02/2007 HEPATITIS B VACCINES (1 of 3 - 19+ 3-dose series) 11/02/2007 CERVICAL CANCER SCREENING 2018 INFLUENZA VACCINE (#1) 2024 06/28/2021 HPV VACCINES Aged Out No longer eligi ble based on patient's age to complete this topic Medical Devices Implanted Type Area Communications Billing Analyst Device Identifier Shelf Expiration Date Model / Serial / Lot Wire K Blnt Trocar [id number] - [id number] Implanted:Qty: 1 on 04/08/2019 by Guy Lozano Jr., MD at [facility] Left: Ankle [employer] [facility] [id number] / / Description:transferred from supplies Screw Mike 2.7x22m Implanted:Qty: 2 on 04/08/2019 by Guy Lozano Jr., MD at [facility] Left: Ankle [id number] / / Description:item add c.s load [id number] date Screw Mike 2.7x24mm Implanted:Qty: 2 on 04/08/2019 by Guy Lozano Jr., MD at [facility] Left: Ankle [id number] / / Description:item add c.s load [id number] date Screw Mike 2.7 X 28mm Implanted:Qty: 2 on 04/08/2019 by Guy Lozano Jr., MD at [facility] Left: Ankle [id number] / / Description:item add c.s load [id number] date Screw Mike 2.7x30mm Implanted:Qty: 1 on 04/08/2019 by Guy Lozano Jr., MD at [facility] Left: Ankle [id number] / / Description:item add c.s load [id number] date Screw Mike 3.5x20mm Implanted:Qty: 1 on 04/08/2019 by Guy Lozano Jr., MD at [facility] Left: Ankle [id number] / / Description:item add c.s load [id number] date Allomatrix 3cc Implanted:Qty: 1 on 04/08/2019 by Guy Lozano Jr., MD at [facility] Left: Ankle 10/06/2022 [id number] / / [id number] Screw 4.0x32mm Implanted:Qty: 1 on 04/08/2019 by Guy Lozano Jr., MD at [facility] Left: Ankle [id number] / / Description:item add c.s load [id number] date Plate U Sm Lt Implanted:Qty: 1 on 04/08/2019 by Guy Lozano Jr., MD at [facility] Left: Ankle [id number] / / Description:item add c.s load [id number] date REQ#[id number] T Plate Lt Implanted:Qty: 1 on 04/08/2019 by Guy Lozano Jr., MD at [facility] Left: Ankle [id number] / / Description:item add c.s load [id number] date Mike Screw 2.7x14mm Implanted:Qty: 1 on 04/08/2019 by Guy Lozano Jr., MD at [facility] Left: Ankle [id number] / / Description:item add c.s load [id number] date Screw Mike 2.7x16mm Implanted:Qty: 1 on 04/08/2019 by Guy Lozano Jr., MD at [facility] Left: Ankle [id number] / / Description:item add c.s load [id number] date Screw Mike 2.7x18mm Implanted:Qty: 1 on 04/08/2019 by Guy Lozano Jr., MD at [facility] Left: Ankle [id number] / / Description:item add c.s load [id number] date Screw Mike 2.7x20mm Implanted:Qty: 1 on 04/08/2019 by Guy Lozano Jr., MD at [facility] Left: Ankle [id number] / / Description:item add c.s load [id number] date [place] [address] [place] [address] PREFERRED RX [employer] Commercial RX [employer] Express Advance Directives For more information, please contact: [phone] * Full Code (Latest Code Status on File) Date Activated Date Inactivated Comments 04/08/2019 6:52 AM 04/08/2019 3:47 PM Care Teams Dental Equipment Technician Relationship Specialty Start Date End Date Carmelo Lozada MD [address] [place] [address] PCP - General Family Practice 04/03/19
--- OUTSIDE RECORDS SUMMARY | 2024-08-21 11:01 | XMS_ITS | Encounter Summary ---
Author Organization [facility] Address [address] [place] [address] Care Team Providers Care Vocal Music Teacher Name Role Phone Carmelo Lozada MD Primary Care Provider +1- [phone] Encounter Details Date Type Department Care Team (Late st Contact Info) Description 05/31/2005 Outpatient Historical [facility] [address] [facility] [address] [place] [address] Guy Saldivar MD [address] [place] [address] [address] [place] [address] Social History Tobacco Use Types Packs/Day Years Used Date Smoking Tobacco: Never Assessed Comments Unknown Sex and Gender Information Value Date Recorded Sex Assigned at Not on file Legal Sex Female 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
--- OUTSIDE RECORDS SUMMARY | 2024-08-21 11:01 | XMS_ITS | Encounter Summary ---
Author Organization [facility] Address [address] [place] [address] Care Team Providers Care Plant Anatomist Name Role Phone Carmelo Lozada MD Primary Care Provider +1- [phone] Encounter Details Date Type Department Care Team (Latest Contact Info) Description 03/13/2007 Outpatient Historical [facility] Tee Jones MD [address] [place] [address] 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
--- OUTSIDE RECORDS SUMMARY | 2024-08-21 11:01 | XMS_ITS | Encounter Summary ---
Author Organization [facility] Address [address] [place] [address] Care Team Providers Care Examination Proctor Name Role Phone Cramelo Lozada MD Primary Care Provider +1- [phone] Encounter Details Date Type Department Care Team (Late st Contact Info) Description 05/02/2005 Outpatient Historical [facility] [address] [place] [address] Francheska Emmanuel MD [address] [place] [address] Social History Tobacco Use Types Packs/Day Years Used Date Smoking Tobacco: Never Assessed Comments Unknown Sex and Gender Information Value Date Recorded Sex Assigned at Not on file Legal Sex Female 3:22 AM CASHIER SELF SERVICE GASOLINE Gender Identity Not on file Sexual Orientation Not on file documented as of this encounter Plan of Treatment Not on file documented as of this encounter Visit Diagnoses Not on filedocumented in this encounter Care Teams Examination Proctor Relationship Specialty Start Date End Date Carmelo Lozada MD [address] [place] [address] PCP - General Family Practice 04/03/19 documented as of this encounter
--- OUTSIDE RECORDS SUMMARY | 2024-08-21 11:01 | XMS_ITS | Encounter Summary ---
Author Organization [facility] Address [address] [place] [address] Care Team Providers Care Gas Distribution And Emergency Clerk Name Role Phone Carmelo Lozada MD Primary Care Provider +1- [phone] Encounter Details Date Type Department Care Team (Late st Contact Info) Description 11/24/2005 Outpatient Historical [facility] [address] [facility] [address] [place] [address] Brayden Morrissey MD [address] [place] [address] [address] [place] [address] Social History Tobacco Use Types Packs/Day Years Used Date Smoking Tobacco: Never Assessed Comments Unknown Sex and Gender Information Value Date Recorded Sex Assigned at Not on file Legal Sex Female 3:22 AM DEVELOPMENT TECHNICIAN Gender Identity Not on file Sexual Orientation Not on file documented as of this encounter Plan of Treatment Not on file documented as of this encounter Visit Diagnoses Not on filedocumented in this encounter Care Teams Gas Distribution And Emergency Clerk Relationship Specialty Start Date End Date Carmelo Lozada MD [address] [place] [address] PCP - General Family Practice 04/03/19 documented as of this encounter
--- OUTSIDE RECORDS SUMMARY | 2024-08-21 11:01 | XMS_ITS | Encounter Summary ---
Author Organization [facility] Address [address] [place] [address] Care Team Providers Care Shorer Name Role Phone Carmleo Lozada MD Primary Care Provider +1- [phone] Encounter Details Date Type Department Care Team (Late st Contact Info) Description 11/29/2005 Outpatient Historical [facility] [address] [facility] [address] [place] [address] Guy Saldivar MD [address] [place] [address] [address] [place] [address] Social History Tobacco Use Types Packs/Day Years Used Date Smoking Tobacco: Never Assessed Comments Unknown Sex and Gender Information Value Date Recorded Sex Assigned at Not on file Legal Sex Female 3:22 AM RETAIL PERFORMANCE COACH Gender Identity Not on file Sexual Orientation Not on file documented as of this encounter Plan of Treatment Not on file documented as of this encounter Visit Diagnoses Not on filedocumented in this encounter Care Teams Shorer Relationship Specialty Start Date End Date Carmelo Lozada MD [address] [place] [address] PCP - General Family Practice 04/03/19 documented as of this encounter
--- OUTSIDE RECORDS SUMMARY | 2024-08-21 11:01 | XMS_ITS | Encounter Summary ---
Author Organization [facility] Address [address] [place] [address] Care Team Providers Care Marble Carver Name Role Phone Carmelo Lozada MD Primary Care Provider +1- [phone] Encounter Details Date Type Department Care Team (Latest Contact Info) Description 06/27/2005 Outpatient Historical [facility] Francheska Emmanuel MD [address] [place] [phone] SUPERVIS NORMAL 1ST PREG (Primary Dx) Social History Tobacco Use Types Packs/Day Years Used Date Smoking Tobacco: Never Assessed Comments Unknown Sex and Gender Information Value Date Recorded Sex Assigned at Not on file Legal Sex Female 3:22 AM DIRECTOR OF GUIDANCE IN PUBLIC SCHOOLS Gender Identity Not on file Sexual Orientation Not on file documented as of this encounter Plan of Treatment Not on file documented as of this encounter Procedures Procedure Name Priority Date/Time Associated Diagnosis Comments MATERNAL SERUM TRIPLE SCREEN Routine 06/27/2005 9:21 AM DIRECTOR OF GUIDANCE IN PUBLIC SCHOOL[employer] documented in this encounter Results * MATERNAL SERUM TRIPLE SCREEN (06/27/2005 9:21 AM DIRECTOR OF GUIDANCE IN PUBLIC SCHOOLS) RISK INTERP INTERFAC E SYSTEM Comment: SCREEN NEGATIVE FOR OPEN NTD, DOWN SYNDROME AND TRISOMY 18. See Result Comment AFP RISK OF OPEN NTD 1 IN 4398 INTERFACE SYSTEM AGE RISK DOWN SYNDROME 1 IN 1207 INTERFACE SYSTEM RISK FOR DOWN'S 1 IN 788 INTE RFACE SYSTEM TRISOMY 18 RISK <1 IN 5000 INT ERFACE SYSTEM ALPHA FETOPROTEIN MATERNAL 56.3 ng/mL INTERFACE SYSTEM ADJ MULTIPL MED AFP 1.33 INTERFACE SYSTEM ESTRIOL UNCONJUGATED 2.07 ng/mL INTERFACE SYSTEM ADJ MULT MED ESTRIOL 0.62 INTERFACE SYSTEM HCG, INTACT 48.30 IU/mL INTERFAC E SYSTEM ADJ MULTIPLE MED HCG 1.75 INTERFACE SYSTEM TRIPLE TEST COMMENTS INTERFACE SYSTEM Comment: THIS PATIENT'S EAMON (ESTIMATED DATE OF DELIVERY) WAS USED TO CALCULATE THE GESTATIONAL AGE. PERFORMANCE OF MATERNAL SERUM AFP, HCG, AND ESTRIOL PROVIDES A USEFUL SCREENING TEST FOR DETECTION OF OPEN NEURAL TUBE DEFECTS AND SOME CHROMOSOMAL ABNORMALITIES. ?? IT SHOULD BE NOTED THAT NORMAL RESULTS CAN NEVER GUARANTEE THE OF A NORMAL BABY AND THAT 2 TO 3 PERCENT OF [place] HAVE SOME TYPE OF PHYSICAL OR MENTAL DEFECT, MANY OF WHICH ARE UNDETECTABLE THROUGH ANY KNOWN DIAGNOSTIC TECHNIQUE. See Result Comment TRIPLE TEST INTERP I NTERFACE SYSTEM Comment: THIS IS A SCREENING TEST, NOT A DIAGNOSTIC TEST. ??NO REAGENT SYSTEM ESTABLISHING THE RISK OF CHROMOSOME ABNORMALITIES DURING HAS BEEN APPROVED BY THE FDA. ??THIS RISK ASSESSMENT REPORT IS BASED IN PART ON DEMOGRAPHIC DATA PROVIDED BY THE ORDERING PHYSICIAN. ?? PLEASE NOTIFY THE LABORATORY PROMPTLY IF ANY DATA ARE INCORRECT. ??FOR ASSISTANCE WITH RECALCULATIONS, PLEASE CALL YOUR LOCAL [facility]. ??FOR ASSISTANCE WITH INTERPRETATION OF THESE RESULTS, PLEASE CONTACT YOUR LOCAL [facility] GENETIC COUNSELOR OR CALL [phone]. INTERPRETIVE CUT-OFFS SCREEN POSITIVE FOR OPEN NTD: > OR = 2.50 ADJUSTED MOM ?> OR = 1.90 ADJUSTED MOM FOR ?INSULIN-DEPENDENT DIABETICS ?> OR = 4.00 ADJUSTED MOM FOR ?TWINS ?> OR = 4.50 ADJUSTED MOM FOR ?TRIPLETS SCREEN POSITIVE FOR DOWN SYNDROME: MSS3 DOWN SYNDROME RISK ?THAT EQUALS OR EXCEEDS ?1 IN 270 SCREEN POSITIVE FOR TRISOMY 18: MSS3 TRISOMY 18 RISK THAT ? EQUALS OR EXCEEDS 1 IN 100 See Result Comment GESTATIONAL AGE 16.7 Weeks INTE RFACE SYSTEM PATIENT'S EST DELIVERY DATE 12/07/2005 INTERFACE SYSTEM GESTATION CALC METHOD ULTRASOUND INTERFACE SYSTEM PATIENT'S WEIGHT 118 Lb INT ERFACE SYSTEM RACE INTERFACE SYSTEM INSULIN DEPEND DIABETIC NO INTERFACE SYSTEM REPEAT SPECIMEN? NO INT ERFACE SYSTEM NUMBER OF FETUS 1 INTE RFACE SYSTEM HISTORY OF NTD NO INTER FACE SYSTEM Comment: Lab test performed by: [email or web address] [address] ASHLEY HYLTON MD FAMILY HISTORY NG INTER FACE SYSTEM LAST MENSTRUAL PERIOD 02/05/2005 INTERFACE SYSTEM MULTI GESTATION PREG NO INTERFACE SYSTEM OTHER RACE INFO NG INTE RFACE SYSTEM 06/27/2005 9:21 AM DIRECTOR OF GUIDANCE IN PUBLIC SCHOOLS Francheska Emmanuel MD CHEMISTRY ORDERABLES Final Re sult INTERFACE SYSTEM Refer to clinic/hospital department documented in this encounter Visit Diagnoses Diagnosis Supervision of normal first - Primary documented in this encounter Care Teams Marble Carver Relationship Specialty Start Date End Date Carmelo Lozada MD [address] [place] [address] PCP - General Family Practice 04/03/19 documented as of this encounter
--- OUTSIDE RECORDS SUMMARY | 2024-08-21 11:01 | XMS_ITS | Encounter Summary ---
Author Organization [facility] Address [address] [place] [address] Care Team Providers Care Creative Consultant Name Role Phone Carmelo Lozada MD Primary Care Provider +1- [phone] Encounter Details Date Type Department Care Team (Late st Contact Info) Description 12/15/2005 Outpatient Historical [facility] Health Services [address] [facility] [address] [place] [address] Brayden Morrissey MD [address] [place] [address] [address] [place] [address] Social History Tobacco Use Types Packs/Day Years Used Date Smoking Tobacco: Never Assessed Comments Unknown Sex and Gender Information Value Date Recorded Sex Assigned at Not on file Legal Sex Female 3:22 AM OPERATIONS ASSOCIATE Gender Identity Not on file Sexual Orientation Not on file documented as of this encounter Plan of Treatment Not on file documented as of this encounter Visit Diagnoses Not on filedocumented in this encounter Care Teams Creative Consultant Relationship Specialty Start Date End Date Carmelo Lozada MD [address] [place] [address] PCP - General Family Practice 04/03/19 documented as of this encounter
--- OUTSIDE RECORDS SUMMARY | 2024-08-21 11:01 | XMS_ITS | Encounter Summary ---
Author Organization [facility] Address [address] [place] [address] Care Team Providers Care Fire Engineer Name Role Phone Carmelo Lozada MD Primary Care Provider +1- [phone] Encounter Details Date Type Department Care Team (Late st Contact Info) Description 11/20/2005 Outpatient Historical [facility] [address] [facility] [address] [place] [address] Brayden Morrissey MD [address] [place] [address] [address] [place] [address] Social History Tobacco Use Types Packs/Day Years Used Date Smoking Tobacco: Never Assessed Comments Unknown Sex and Gender Information Value Date Recorded Sex Assigned at Not on file Legal Sex Female 3:22 AM BUSINESS ANALYSIS 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
--- OUTSIDE RECORDS SUMMARY | 2024-08-21 11:01 | XMS_ITS | Encounter Summary ---
Author Organization [facility] Address [address] [place] [address] Care Team Providers Care Administrative Officer Name Role Phone Carmelo Lozada MD Primary Care Provider +1- [phone] Encounter Details Date Type Department Care Team (Late st Contact Info) Description 2005 Outpatient Historical [facility] [address] [facility] [address] [place] [address] Guy Saldivar MD [address] [place] [address] [address] [place] [address] Social History Tobacco Use Types Packs/Day Years Used Date Smoking Tobacco: Never Assessed Comments Unknown Sex and Gender Information Value Date Recorded Sex Assigned at Not on file Legal Sex Female 3:22 AM COMMERCIAL PLUMBER Gender Identity Not on file Sexual Orientation Not on file documented as of this encounter Plan of Treatment Not on file documented as of this encounter Visit Diagnoses Not on filedocumented in this encounter Care Teams Administrative Officer Relationship Specialty Start Date End Date Carmelo Lozada MD [address] [place] [address] PCP - General Family Practice 04/03/19 documented as of this encounter
--- OUTSIDE RECORDS SUMMARY | 2024-08-21 11:01 | XMS_ITS | Encounter Summary ---
Author Organization [facility] Address [address] [place] [address] Care Team Providers Care Diesel Maintenance Technician Name Role Phone Carmelo Lozada MD Primary Care Provider +1- [phone] Encounter Details Date Type Department Care Team (Late st Contact Info) Description 10/04/2005 Outpatient Historical [facility] [address] [facility] [address] [place] [address] Guy Saldivar MD [address] [place] [address] [address] [place] [address] Social History Tobacco Use Types Packs/Day Years Used Date Smoking Tobacco: Never Assessed Comments Unknown Sex and Gender Information Value Date Recorded Sex Assigned at Not on file Legal Sex Female 3:22 AM PRINTED CIRCUIT BOARD PANELS PLATER Gender Identity Not on file Sexual Orientation Not on file documented as of this encounter Plan of Treatment Not on file documented as of this encounter Visit Diagnoses Not on filedocumented in this encounter Care Teams Diesel Maintenance Technician Relationship Specialty Start Date End Date Carmelo Lozada MD [address] [place] [address] PCP - General Family Practice 04/03/19 documented as of this encounter
--- OUTSIDE RECORDS SUMMARY | 2024-08-21 11:01 | XMS_ITS | Encounter Summary ---
Author Organization [facility] Address [address] [place] [address] Care Team Providers Care Tab Builder Name Role Phone Carmelo Lozada MD Primary Care Provider +1- [phone] Encounter Details Date Type Department Care Team (Latest Contact Info) Description 05/31/2005 Outpatient Historical [facility] Guy Saldivar MD [address] [place] [address] PAP SMEAR OF CERVIX W ASCUS (Primary Dx) Social History Tobacco Use Types Packs/Day Years Used Date Smoking Tobacco: Never Assessed Comments Unknown Sex and Gender Information Value Date Recorded Sex Assigned at Not on file Legal Sex Female 3:22 AM PLANNING ADVISOR Gender Identity Not on file Sexual Orientation Not on file documented as of this encounter Plan of Treatment Not on file documented as of this encounter Visit Diagnoses Diagnosis Papanicolaou smear of cervix with atypical squamous cells of undetermined significance (ASC-US)- Primary documented in this encounter Care Teams Tab Builder Relationship Specialty Start Date End Date Carmelo Lozada MD [address] [place] [address] PCP - General Family Practice 04/03/19 documented as of this encounter
--- OUTSIDE RECORDS SUMMARY | 2024-08-21 11:01 | XMS_ITS | Encounter Summary ---
Author Organization [facility] Address [address] [place] [address] Care Team Providers Care Bolt Sorter Name Role Phone Carmelo Lozada MD Primary Care Provider +1- [phone] Encounter Details Date Type Department Care Team (Late st Contact Info) Description 12/06/2005 Outpatient Historical [facility] [address] [place] [address] [address] [place] [address] Guy Saldivar MD [address] [place] [address] [address] [place] [address] Social History Tobacco Use Types Packs/Day Years Used Date Smoking Tobacco: Never Assessed Comments Unknown Sex and Gender Information Value Date Recorded Sex Assigned at Not on file Legal Sex Female 3:22 AM TAX COMMISSIONER Gender Identity Not on file Sexual Orientation Not on file documented as of this encounter Plan of Treatment Not on file documented as of this encounter Visit Diagnoses Not on filedocumented in this encounter Care Teams Bolt Sorter Relationship Specialty Start Date End Date Carmelo Lozada MD [address] [place] [address] PCP - General Family Practice 04/03/19 documented as of this encounter
--- OUTSIDE RECORDS SUMMARY | 2024-08-21 11:01 | XMS_ITS | Encounter Summary ---
Author Organization [employer] Address 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 Gender Identity Not on file Sexual Orientation Not on file documented as of this encounter Plan of Treatment Not on file documented as of this encounter Procedures Procedure Name Priority Date/Time Associated Diagnosis Comments CBC WITH DIFFERENTIAL Routine 11/29/2005 9:30 AM CDT CBC WITH DIFFERENTIAL Routine 11/29/2005 9:30 AM CDT URINALYSIS W/REFLEX MICROSCOPIC Routine 11/29/2005 9:30 AM CDT URINALYSIS W/REFLEX MICROSCOPIC Routine 11/29/2005 9:30 AM CDT URIC ACID Routine 11/29/2005 9:30 AM CDT HEPATIC FUNCTION PANEL Routine 11/29/2005 9:30 AM CDT documented in this encounter Results * (ABNORMAL) URINALYSIS (11/29/2005 9:30 AM CDT) WBC UA 5-10(A) 0 - 5 /HPF INTERFACE SYSTEM RBC UA 0-2 0 - 2 /HPF INTERFACE SYSTEM BACTERIA UA 2+(A) None Seen /HPF INTERFACE SYSTEM EPITHELIAL CELLS, URINE Many /HPF INTERFACE SYSTEM 11/29/2005 9:30 AM CDT Guy Saldivar MD URINE ORDERABLES Final Result Performing Organization Address [facility] Co de Phone Number INTERFACE SYSTEM Refer to clinic/hospital department * (ABNORMAL) URINALYSIS (11/29/2005 9:30 AM CDT) MACRO COMMENT Results called INTERFACE SYSTEM COLOR UA Yellow INTERFACE SYSTEM CLARITY UA Clear Clear INTERFACE SYSTEM SPECIFIC GRAVITY UA 1.010 1.001 - 1.035 INTERFACE SYSTEM PH UA 7.0 5.0 - 8.0 INTERFACE SYSTEM LEUKOCYTE ESTERASE UA Trace(A) Negative INTERFACE SYSTEM NITRITE UA Negative Negative INTERFACE SYSTEM PROTEIN UA Negative Negative INTERFACE SYSTEM GLUCOSE UA Negative Negative INTERFACE SYSTEM KETONES UA Negative Negative INTERFACE SYSTEM UROBILINOGEN UA <1 <1 mg/dL INTE RFACE SYSTEM BILIRUBIN UA Negative Negative INTERFA CE SYSTEM BLOOD UA Negative Negative INTERFACE SYSTEM 11/29/2005 9:30 AM CDT Guy Saldivar MD URINE ORDERABLES Final Result Performing Organization Address [facility]/ZIP Co de Phone Number INTERFACE SYSTEM Refer to clinic/hospital department * CBC WITH DIFFERENTIAL (11/29/2005 9:30 AM CDT) NEUTROPHILS 62 45 - 70 % INTERFAC E SYSTEM LYMPHOCYTES 26 16 - 45 % INTERFAC E SYSTEM MONOCYTES 10 3 - 13 % INTERFACE SYSTEM EOSINOPHILS 2 0 - 7 % INTERFAC E SYSTEM BASOPHILS 0 0 - 2 % INTERFACE SYSTEM NEUTROPHIL ABSOLUTE 4.00 1.90 - 7.00 K/uL INTERFACE SYSTEM LYMPHOCYTE ABSOLUTE 1.68 0.70 - 4.50 K/uL INTERFACE SYSTEM MONOCYTE ABSOLUTE 0.62 0.10 - 1.30 K/uL INTERFACE SYSTEM EOSINOPHIL ABSOLUTE 0.12 0.00 - 0.70 K/uL INTERFACE SYSTEM BASOPHILS ABSOLUTE 0.01 0.00 - 0.20 K/uL INTERFACE SYSTEM 11/29/2005 9:30 AM CDT Guy Saldivar MD HEMATOLOGY ORDERABLES Final Res ult INTERFACE SYSTEM Refer to clinic/hospital department * (ABNORMAL) CBC WITH DIFFERENTIAL (11/29/2005 9:30 AM CDT) WBC 6.4 4.0 - 9.8 K/uL INTERFACE SYSTEM RBC 3.87(L) 3.90 - 4.90 M/uL INTERFACE SYSTEM HEMOGLOBIN 12.0 11.8 - 14.8 g/dL INTERFACE SYSTEM HEMATOCRIT 32.9(L) 35.5 - 44.0 % INTERFACE SYSTEM MCV 85.0 82.0 - 99.0 fL INTERFACE SYSTEM MCH 31.0 27.2 - 32.6 pg INTERFACE SYSTEM MCHC 36.5(H) 31.5 - 35.5 % INTERFACE SYSTEM RDW 12.7 11.5 - 14.5 % INTERFACE SYSTEM RDW-STDEV 38.8 37.1 - 48.7 fL INTERFACE SYSTEM PLATELETS 165 140 - 350 K/uL INTERFACE SYSTEM MPV 10.2 9.3 - 12.4 fL INTERFACE SYSTEM 11/29/2005 9:30 AM CDT Guy Saldivar MD HEMATOLOGY ORDERABLES Final Res ult INTERFACE SYSTEM Refer to clinic/hospital department * (ABNORMAL) HEPATIC FUNCTION PANEL (11/29/2005 9:30 AM CDT) AST 19 12 - 32 U/L INTERFACE SYSTEM ALKALINE PHOSPHATASE 196(H) 35 - 187 U/L INTERFACE SYSTEM BILIRUBIN TOTAL 0.7 0.2 - 1.0 mg/dL INTERFACE SYSTEM ALBUMIN 3.6 3.2 - 4.5 g/dL INTERFACE SYSTEM TOTAL PROTEIN 6.2 6.0 - 8.3 g/dL INTERFACE SYSTEM ALT 13 0 - 31 U/L INTERFACE SYSTEM BILIRUBIN DIRECT 0.1 0.0 - 0.3 mg/dL INTERFACE SYSTEM 11/29/2005 9:30 AM CDT Guy Saldivar MD CHEMISTRY ORDERABLES Final Resu lt Performing Organization Address [facility] Co de Phone Number INTERFACE SYSTEM Refer to clinic/hospital department * URIC ACID (11/29/2005 9:30 AM CDT) URIC ACID 3.2 2.3 - 6.6 mg/dL INTERFACE SYSTEM 11/29/2005 9:30 AM CDT Guy Saldivar MD CHEMISTRY ORDERABLES Final Resu lt Performing Organization Address [facility] de Phone Number INTERFACE SYSTEM Refer to clinic/hospital department documented in this encounter Visit Diagnoses Diagnosis Other specified complication, antepartum(646.83)- Primary Other specified complication, antepartum documented in this encounter Care Teams Fisherman Helper Relationship Specialty Start Date End Date Carmelo Lozada MD [address] [place] [address] PCP - General Family Practice 04/03/19 documented as of this encounter
--- OUTSIDE RECORDS SUMMARY | 2024-08-21 11:01 | XMS_ITS | Encounter Summary ---
Author Organization [employer] Address 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 Gender Identity Not on file Sexual Orientation Not on file documented as of this encounter Plan of Treatment Not on file documented as of this encounter Procedures Procedure Name Priority Date/Time Associated Diagnosis Comments CBC WITH DIFFERENTIAL Routine 12/13/2005 9:30 AM CDT CBC WITH DIFFERENTIAL Routine 12/13/2005 9:30 AM CDT URINALYSIS W/REFLEX MICROSCOPIC Routine 12/13/2005 9:30 AM CDT URINALYSIS W/REFLEX MICROSCOPIC Routine 12/13/2005 9:30 AM CDT URIC ACID Routine 12/13/2005 9:30 AM CDT HEPATIC FUNCTION PANEL Routine 12/13/2005 9:30 AM CDT documented in this encounter Results * (ABNORMAL) URINALYSIS (12/13/2005 9:30 AM CDT) WBC UA 0-5 0 - 5 /HPF INTERFACE SYSTEM RBC UA 2-5(A) 0 - 2 /HPF INTERFACE SYSTEM BACTERIA UA 2+(A) None Seen /HPF INTERFACE SYSTEM EPITHELIAL CELLS, URINE 5-10 /HPF INTERFACE SYSTEM 12/13/2005 9:30 AM CDT Brayden Morrissey MD URINE ORDERABLES Final Result Performing Organization Address [facility] Phone Number INTERFACE SYSTEM Refer to clinic/hospital department * (ABNORMAL) URINALYSIS (12/13/2005 9:30 AM CDT) MACRO COMMENT Results called INTERFACE SYSTEM COLOR UA Yellow INTERFACE SYSTEM CLARITY UA Slt. Cloudy(A) Clear INTERFACE SYSTEM SPECIFIC GRAVITY UA 1.015 1.001 - 1.035 INTERFACE SYSTEM PH UA 7.0 5.0 - 8.0 INTERFACE SYSTEM LEUKOCYTE ESTERASE UA Negative Negative INTERFACE SYSTEM NITRITE UA Negative Negative INTERFACE SYSTEM PROTEIN UA Negative Negative INTERFACE SYSTEM GLUCOSE UA Negative Negative INTERFACE SYSTEM KETONES UA Negative Negative INTERFACE SYSTEM UROBILINOGEN UA <1 <1 mg/dL INTE RFACE SYSTEM BILIRUBIN UA Negative Negative INTERFA CE SYSTEM BLOOD UA 1+(A) Negative INTERFACE SYSTEM 12/13/2005 9:30 AM CDT us Brayden Morrissey MD URINE ORDERABLES Final Result Performing Organization Address [facility] Co ca Phone Number INTERFACE SYSTEM Refer to clinic/hospital department * CBC WITH DIFFERENTIAL (12/13/2005 9:30 AM CDT) NEUTROPHILS 61 45 - 70 % INTERFAC E SYSTEM LYMPHOCYTES 29 16 - 45 % INTERFAC E SYSTEM MONOCYTES 9 3 - 13 % INTERFACE SYSTEM EOSINOPHILS 1 0 - 7 % INTERFAC E SYSTEM BASOPHILS 0 0 - 2 % INTERFACE SYSTEM NEUTROPHIL ABSOLUTE 4.13 1.90 - 7.00 K/uL INTERFACE SYSTEM LYMPHOCYTE ABSOLUTE 1.93 0.70 - 4.50 K/uL INTERFACE SYSTEM MONOCYTE ABSOLUTE 0.61 0.10 - 1.30 K/uL INTERFACE SYSTEM EOSINOPHIL ABSOLUTE 0.09 0.00 - 0.70 K/uL INTERFACE SYSTEM BASOPHILS ABSOLUTE 0.01 0.00 - 0.20 K/uL INTERFACE SYSTEM 12/13/2005 9:30 AM CDT us Brayden Morrissey MD HEMATOLOGY ORDERABLES Final R esult Performing Organization Address [facility] Co de Phone Number INTERFACE SYSTEM Refer to clinic/hospital department * (ABNORMAL) CBC WITH DIFFERENTIAL (12/13/2005 9:30 AM CDT) WBC 6.8 4.0 - 9.8 K/uL INTERFACE SYSTEM RBC 4.01 3.90 - 4.90 M/uL INTERFACE SYSTEM HEMOGLOBIN 12.3 11.8 - 14.8 g/dL INTERFACE SYSTEM HEMATOCRIT 34.0(L) 35.5 - 44.0 % INTERFACE SYSTEM MCV 84.8 82.0 - 99.0 fL INTERFACE SYSTEM MCH 30.7 27.2 - 32.6 pg INTERFACE SYSTEM MCHC 36.2(H) 31.5 - 35.5 % INTERFACE SYSTEM RDW 12.5 11.5 - 14.5 % INTERFACE SYSTEM RDW-STDEV 38.5 37.1 - 48.7 fL INTERFACE SYSTEM PLATELETS 172 140 - 350 K/uL INTERFACE SYSTEM MPV 10.6 9.3 - 12.4 fL INTERFACE SYSTEM 12/13/2005 9:30 AM CDT us Brayden Morrissey MD HEMATOLOGY ORDERABLES Final R esult Performing Organization Address City/[facility]/ZIP Co de Phone Number INTERFACE SYSTEM Refer to clinic/hospital department * (ABNORMAL) HEPATIC FUNCTION PANEL (12/13/2005 9:30 AM CDT) AST 23 12 - 32 U/L INTERFACE SYSTEM ALKALINE PHOSPHATASE 216(H) 35 - 187 U/L INTERFACE SYSTEM BILIRUBIN TOTAL 0.6 0.2 - 1.0 mg/dL INTERFACE SYSTEM ALBUMIN 3.3 3.2 - 4.5 g/dL INTERFACE SYSTEM TOTAL PROTEIN 6.1 6.0 - 8.3 g/dL INTERFACE SYSTEM ALT 15 0 - 31 U/L INTERFACE SYSTEM BILIRUBIN DIRECT 0.1 0.0 - 0.3 mg/dL INTERFACE SYSTEM 12/13/2005 9:30 AM CDT Brayden Morrissey MD CHEMISTRY ORDERABLES Final Re sult Performing Organization Address [facility] de Phone Number INTERFACE SYSTEM Refer to clinic/hospital department * URIC ACID (12/13/2005 9:30 AM CDT) URIC ACID 3.2 2.3 - 6.6 mg/dL INTERFACE SYSTEM 12/13/2005 9:30 AM CDT us Brayden Morrissey MD CHEMISTRY ORDERABLES Final Re sult Performing Organization Address [facility] Phone Number INTERFACE SYSTEM Refer to clinic/hospital department documented in this encounter Visit Diagnoses Diagnosis Other specified complication, antepartum(646.83)- Primary Other specified complication, antepartum documented in this encounter Care Teams Ladle Mechanic Relationship Specialty Start Date End Date Carmelo Lozada MD [address] [place] [phone] PCP - General Family Practice 04/03/19 documented as of this encounter
--- OUTSIDE RECORDS SUMMARY | 2024-08-21 11:01 | XMS_ITS | Encounter Summary ---
Author Organization [employer] Address 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
--- OUTSIDE RECORDS SUMMARY | 2024-08-21 11:01 | XMS_ITS | Encounter Summary ---
Author Organization [employer] Address 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
--- OUTSIDE RECORDS SUMMARY | 2024-08-21 11:01 | XMS_ITS | Encounter Summary ---
Author Organization [facility] Address [address] [place] [address] Care Team Providers Care Case Filler Name Role Phone Carmelo Lozada MD Primary Care Provider [phone]- [phone] Encounter Details Date Type Department Care Team (Late st Contact Info) Description 12/15/2005 Outpatient Historical [facility] [address] [place] [address] [address] [place] [address] Guy Saldivar MD [address] [place] [address] [address] [place] [address] Social History Tobacco Use Types Packs/Day Years Used Date Smoking Tobacco: Never Assessed Comments Unknown Sex and Gender Information Value Date Recorded Sex Assigned at Not on file 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
--- OUTSIDE RECORDS SUMMARY | 2024-08-21 11:01 | XMS_ITS | Encounter Summary ---
Author Organization [employer] Address 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
--- OUTSIDE RECORDS SUMMARY | 2024-08-21 11:01 | XMS_ITS | Encounter Summary ---
Author Organization [facility] Address [address] [place] [address] Care Team Providers Care Tax Accountant Name Role Phone Carmelo Lozada MD Primary Care Provider [phone]- [phone] Encounter Details Date Type Department Care Team (Late st Contact Info) Description 11/29/2005 Outpatient Historical [facility] [address] [facility] [address] [place] [address] Brayden Morrissey MD [address] [place] [address] [address] [place] [address] Social History Tobacco Use Types Packs/Day Years Used Date Smoking Tobacco: Never Assessed Comments Unknown Sex and Gender Information Value Date Recorded Sex Assigned at Not on file 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
--- OUTSIDE RECORDS SUMMARY | 2024-08-21 11:01 | XMS_ITS | Encounter Summary ---
Author Organization [employer] Address [address] [place] [address] Care Team Providers Care Precision Millwright Name Role Phone Carmelo Lozada MD Primary Care Provider [phone] Encounter Details Date Type Department Care Team (Latest Contact Info) Description 12/14/2005 Inpatient Historical HIS INPATIENT IN BED Guy Saldivar MD [address] [address] Obstruction by Bony Pelvis During Labor and Delivery, Delivered (Primary Dx) Social History Tobacco Use Types Packs/Day Years Used Date Smoking Tobacco: Never Assessed Comments Unknown Sex and Gender Information Value Date Recorded Sex Assigned at Not on file 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 Gender Identity Not on file Sexual Orientation Not on file documented as of this encounter Plan of Treatment Not on file documented as of this encounter Procedures Procedure Name Priority Date/Time Associated Diagnosis Comments CBC WITH DIFFERENTIAL Routine 12/16/2005 5:00 AM CDT CBC WITH DIFFERENTIAL Routine 12/16/2005 5:00 AM CDT CBC WITH DIFFERENTIAL Routine 12/14/2005 2:15 PM CDT CBC WITH DIFFERENTIAL Routine 12/14/2005 2:15 PM CDT documented in this encounter Results * (ABNORMAL) CBC WITH DIFFERENTIAL (12/16/2005 5:00 AM CDT) NEUTROPHILS 79(H) 45 - 70 % INTERFAC E SYSTEM LYMPHOCYTES 13(L) 16 - 45 % INTERFAC E SYSTEM MONOCYTES 8 3 - 13 % INTERFACE SYSTEM EOSINOPHILS 0 0 - 7 % INTERFAC E SYSTEM BASOPHILS 0 0 - 2 % INTERFACE SYSTEM NEUTROPHIL ABSOLUTE 10.75(H) 1.90 - 7.00 K/uL INTERFACE SYSTEM LYMPHOCYTE ABSOLUTE 1.80 0.70 - 4.50 K/uL INTERFACE SYSTEM MONOCYTE ABSOLUTE 1.08 0.10 - 1.30 K/uL INTERFACE SYSTEM EOSINOPHIL ABSOLUTE 0.02 0.00 - 0.70 K/uL INTERFACE SYSTEM BASOPHILS ABSOLUTE 0.02 0.00 - 0.20 K/uL INTERFACE SYSTEM 12/16/2005 5:00 AM CDT Guy Saldivar MD HEMATOLOGY ORDERABLES Final Res ult Performing Organization Address City/[facility] Co de Phone Number INTERFACE SYSTEM Refer to clinic/hospital department * (ABNORMAL) CBC WITH DIFFERENTIAL (12/16/2005 5:00 AM CDT) WBC 13.7(H) 4.0 - 9.8 K/uL INTERFACE SYSTEM RBC 3.88(L) 3.90 - 4.90 M/uL INTERFACE SYSTEM HEMOGLOBIN 11.7(L) 11.8 - 14.8 g/dL INTERFACE SYSTEM HEMATOCRIT 33.9(L) 35.5 - 44.0 % INTERFACE SYSTEM MCV 87.4 82.0 - 99.0 fL INTERFACE SYSTEM MCH 30.2 27.2 - 32.6 pg INTERFACE SYSTEM MCHC 34.5 31.5 - 35.5 % INTERFACE SYSTEM RDW 13.1 11.5 - 14.5 % INTERFACE SYSTEM RDW-STDEV 41.9 37.1 - 48.7 fL INTERFACE SYSTEM PLATELETS 158 140 - 350 K/uL INTERFACE SYSTEM MPV 10.8 9.3 - 12.4 fL INTERFACE SYSTEM 12/16/2005 5:00 AM CDT Guy Saldivar MD HEMATOLOGY ORDERABLES Final Res ult Performing Organization Address City/[facility] de Phone Number INTERFACE SYSTEM Refer to clinic/hospital department * CBC WITH DIFFERENTIAL (12/14/2005 2:15 PM CDT) NEUTROPHILS 68 45 - 70 % INTERFAC E SYSTEM LYMPHOCYTES 24 16 - 45 % INTERFAC E SYSTEM MONOCYTES 6 3 - 13 % INTERFACE SYSTEM EOSINOPHILS 1 0 - 7 % INTERFAC E SYSTEM BASOPHILS 0 0 - 2 % INTERFACE SYSTEM NEUTROPHIL ABSOLUTE 4.65 1.90 - 7.00 K/uL INTERFACE SYSTEM LYMPHOCYTE ABSOLUTE 1.66 0.70 - 4.50 K/uL INTERFACE SYSTEM MONOCYTE ABSOLUTE 0.42 0.10 - 1.30 K/uL INTERFACE SYSTEM EOSINOPHIL ABSOLUTE 0.07 0.00 - 0.70 K/uL INTERFACE SYSTEM BASOPHILS ABSOLUTE 0.02 0.00 - 0.20 K/uL INTERFACE SYSTEM 12/14/2005 2:15 PM CDT Guy Saldivar MD HEMATOLOGY ORDERABLES Final Res ult Performing Organization Address [facility] de Phone Number INTERFACE SYSTEM Refer to clinic/hospital department * (ABNORMAL) CBC WITH DIFFERENTIAL (12/14/2005 2:15 PM CDT) WBC 6.8 4.0 - 9.8 K/uL INTERFACE SYSTEM RBC 4.05 3.90 - 4.90 M/uL INTERFACE SYSTEM HEMOGLOBIN 12.2 11.8 - 14.8 g/dL INTERFACE SYSTEM HEMATOCRIT 34.3(L) 35.5 - 44.0 % INTERFACE SYSTEM MCV 84.7 82.0 - 99.0 fL INTERFACE SYSTEM MCH 30.1 27.2 - 32.6 pg INTERFACE SYSTEM MCHC 35.6(H) 31.5 - 35.5 % INTERFACE SYSTEM RDW 12.4 11.5 - 14.5 % INTERFACE SYSTEM RDW-STDEV 38.5 37.1 - 48.7 fL INTERFACE SYSTEM PLATELETS 182 140 - 350 K/uL INTERFACE SYSTEM MPV 10.6 9.3 - 12.4 fL INTERFACE SYSTEM 12/14/2005 2:15 PM CDT Guy Saldivar MD HEMATOLOGY ORDERABLES Final Res ult INTERFACE SYSTEM Refer to clinic/hospital department documented in this encounter Visit Diagnoses Diagnosis Obstruction by bony pelvis during labor and delivery, delivered(660.11)- Primary Obstruction by bony pelvis during labor and delivery, delivered documented in this encounter Care Teams Precision Millwright Relationship Specialty Start Date End Date Carmelo Lozada MD [address] [place] [address] PCP - General Family Practice 04/03/19 documented as of this encounter
--- OUTSIDE RECORDS SUMMARY | 2024-08-21 11:01 | XMS_ITS | Encounter Summary ---
Author Organization [facility] Address [address] [place] [address] Care Team Providers Care Room Service Waiter Name Role Phone Carmelo Lozada MD Primary Care Provider +1- [phone] Encounter Details Date Type Department Care Team (Late st Contact Info) Description 10/19/2005 Outpatient Historical [facility] [address] [place] [phone] Francheska Emmanuel MD [address] [place] [phone] Social History Tobacco Use Types Packs/Day Years Used Date Smoking Tobacco: Never Assessed Comments Unknown Sex and Gender Information Value Date Recorded Sex Assigned at Not on file 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
--- OUTSIDE RECORDS SUMMARY | 2024-08-21 11:01 | XMS_ITS | Encounter Summary ---
Author Organization [facility] Address [address] [place] [address] Care Team Providers Care Shotblaster Name Role Phone Carmelo Lozada MD Primary Care Provider +1- [phone] Encounter Details Date Type Department Care Team (Late st Contact Info) Description 11/08/2005 Outpatient Historical [facility] [address] [facility] [address] [place] [address] Guy Saldivar MD [address] [place] [address] [address] [place] [address] Social History Tobacco Use Types Packs/Day Years Used Date Smoking Tobacco: Never Assessed Comments Unknown Sex and Gender Information Value Date Recorded Sex Assigned at Not on file 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
--- OUTSIDE RECORDS SUMMARY | 2024-08-21 11:01 | XMS_ITS | Encounter Summary ---
Author Organization [facility] Address [address] [place] [address] Care Team Providers Care Audio Production Manager Name Role Phone Carmelo Lozada MD Primary Care Provider +1- [phone] Encounter Details Date Type Department Care Team (Late st Contact Info) Description 09/12/2005 Outpatient Historical [facility] [address] [place] [phone] Francheska Emmanuel MD [address] [place] [phone] Social History Tobacco Use Types Packs/Day Years Used Date Smoking Tobacco: Never Assessed Comments Unknown Sex and Gender Information Value Date Recorded Sex Assigned at Not on file Legal Sex Female 3:22 AM ACCOUNT MANAGER SALES REPRESENTATIVE Gender Identity Not on file Sexual Orientation Not on file documented as of this encounter Plan of Treatment Not on file documented as of this encounter Visit Diagnoses Not on filedocumented in this encounter Care Teams Audio Production Manager Relationship Specialty Start Date End Date Carmelo Lozada MD [address] [place] [address] PCP - General Family Practice 04/03/19 documented as of this encounter
--- OUTSIDE RECORDS SUMMARY | 2024-08-21 11:01 | XMS_ITS | Encounter Summary ---
Author Organization [facility] Address [address] [place] [address] Care Team Providers Care Deck Hand Name Role Phone Carmelo Lozada MD Primary Care Provider +1- [phone] Encounter Details Date Type Department Care Team (Late st Contact Info) Description 03/21/2006 Outpatient Historical [facility] [address] [facility] [address] [place] [address] Guy Saldivar MD [address] [place] [address] [address] [place] [address] Social History Tobacco Use Types Packs/Day Years Used Date Smoking Tobacco: Never Assessed Comments Unknown Sex and Gender Information Value Date Recorded Sex Assigned at Not on file Legal Sex Female 3:22 AM CABLE SUPERVISOR Gender Identity Not on file Sexual Orientation Not on file documented as of this encounter Plan of Treatment Not on file documented as of this encounter Visit Diagnoses Not on filedocumented in this encounter Care Teams Deck Hand Relationship Specialty Start Date End Date Carmelo Lozada MD [address] [place] [address] PCP - General Family Practice 04/03/19 documented as of this encounter
--- OUTSIDE RECORDS SUMMARY | 2024-08-21 11:01 | XMS_ITS | Encounter Summary ---
Author Organization [facility] Address [address] [place] [address] Care Team Providers Care Plastic Boat Buffer Name Role Phone Carmelo Lozada MD Primary Care Provider +1- [phone] Encounter Details Date Type Department Care Team (Late st Contact Info) Description 06/27/2005 Outpatient Historical [facility] [address] [place] [phone] Francheska Emmanuel MD [address] [place] [phone] Social History Tobacco Use Types Packs/Day Years Used Date Smoking Tobacco: Never Assessed Comments Unknown Sex and Gender Information Value Date Recorded Sex Assigned at Not on file Legal Sex Female 3:22 AM FUR NAILER Gender Identity Not on file Sexual Orientation Not on file documented as of this encounter Plan of Treatment Not on file documented as of this encounter Visit Diagnoses Not on filedocumented in this encounter Care Teams Plastic Boat Buffer Relationship Specialty Start Date End Date Carmelo Lozada MD [address] [place] [address] PCP - General Family Practice 04/03/19 documented as of this encounter
--- OUTSIDE RECORDS SUMMARY | 2024-08-21 11:01 | XMS_ITS | Encounter Summary ---
Author Organization [facility] Address [address] [place] [address] Care Team Providers Care It Lead Name Role Phone Carmelo Lozada MD Primary Care Provider +1- [phone] Encounter Details Date Type Department Care Team (Late st Contact Info) Description 07/20/2005 Outpatient Historical [facility] [address] [place] [address] Francheska Emmanuel MD [address] [place] [phone] Social History Tobacco Use Types Packs/Day Years Used Date Smoking Tobacco: Never Assessed Comments Unknown Sex and Gender Information Value Date Recorded Sex Assigned at Not on file Legal Sex Female 3:22 AM TRANSITION SPECIALIST Gender Identity Not on file Sexual Orientation Not on file documented as of this encounter Plan of Treatment Not on file documented as of this encounter Visit Diagnoses Not on filedocumented in this encounter Care Teams It Lead Relationship Specialty Start Date End Date Carmelo Lozada MD [address] [place] [address] PCP - General Family Practice 04/03/19 documented as of this encounter
--- OUTSIDE RECORDS SUMMARY | 2024-08-21 11:01 | XMS_ITS | Encounter Summary ---
Author Organization [facility] Address [address] [place] [address] Care Team Providers Care Dry Wall Sprayer Name Role Phone Carmelo Lozada MD Primary Care Provider +1- [phone] Encounter Details Date Type Department Care Team (Late st Contact Info) Description 12/13/2005 Outpatient Historical [facility] [address] [facility] [address] [place] [address] Brayden Morrissey MD [address] [place] [address] [address] [place] [address] Social History Tobacco Use Types Packs/Day Years Used Date Smoking Tobacco: Never Assessed Comments Unknown Sex and Gender Information Value Date Recorded Sex Assigned at Not on file Legal Sex Female 3:22 AM POULTRY PACKER Gender Identity Not on file Sexual Orientation Not on file documented as of this encounter Plan of Treatment Not on file documented as of this encounter Visit Diagnoses Not on filedocumented in this encounter Care Teams Dry Wall Sprayer Relationship Specialty Start Date End Date Carmelo Lozada MD [address] [place] [address] PCP - General Family Practice 04/03/19 documented as of this encounter
--- OUTSIDE RECORDS SUMMARY | 2024-08-21 11:01 | XMS_ITS | Encounter Summary ---
Author Organization [facility] Address [address] [place] [address] Care Team Providers Care Warehouse Shipper Name Role Phone Carmelo Lozada MD Primary Care Provider +1- [phone] Encounter Details Date Type Department Care Team (Late st Contact Info) Description 12/13/2005 Outpatient Historical [facility] [address] [place] [address] [address] [place] [address] Guy Saldivar MD [address] [place] [address] [address] [place] [address] Social History Tobacco Use Types Packs/Day Years Used Date Smoking Tobacco: Never Assessed Comments Unknown Sex and Gender Information Value Date Recorded Sex Assigned at Not on file Legal Sex Female 3:22 AM STONE DRILLER HELPER Gender Identity Not on file Sexual Orientation Not on file documented as of this encounter Plan of Treatment Not on file documented as of this encounter Visit Diagnoses Not on filedocumented in this encounter Care Teams Warehouse Shipper Relationship Specialty Start Date End Date Carmelo Lozada MD [address] [place] [address] PCP - General Family Practice 04/03/19 documented as of this encounter
--- OUTSIDE RECORDS SUMMARY | 2024-08-21 11:01 | XMS_ITS | Encounter Summary ---
Author Organization [facility] Address [address] [place] [address] Care Team Providers Care Propellant Charge Zone Assembler Name Role Phone Carmelo Lozada MD Primary Care Provider +1- [phone] Encounter Details Date Type Department Care Team (Late st Contact Info) Description 11/22/2005 Outpatient Historical [facility] [address] [facility] [address] [place] [address] Guy Saldivar MD [address] [place] [address] [address] [place] [address] Social History Tobacco Use Types Packs/Day Years Used Date Smoking Tobacco: Never Assessed Comments Unknown Sex and Gender Information Value Date Recorded Sex Assigned at Not on file Legal Sex Female 3:22 AM EYE SPECIALIST Gender Identity Not on file Sexual Orientation Not on file documented as of this encounter Plan of Treatment Not on file documented as of this encounter Visit Diagnoses Not on filedocumented in this encounter Care Teams Propellant Charge Zone Assembler Relationship Specialty Start Date End Date Carmelo Lozada MD [address] [place] [address] PCP - General Family Practice 04/03/19 documented as of this encounter
--- OUTSIDE RECORDS SUMMARY | 2024-08-21 11:01 | XMS_ITS | Encounter Summary ---
Author Organization [facility] Address [address] [place] [address] Care Team Providers Care Railroad Dining Car Stewardess Name Role Phone Carmelo Lozada MD Primary Care Provider +1- [phone] Encounter Details Date Type Department Care Team (Latest Contact Info) Description 11/20/2005 Outpatient Historical [facility] Guy Saldivar MD [address] [place] [address] [address] [place] [address] Brayden Morrissey MD [address] [facility] [facility] [address] [place] [address] Other Specified Complication, Antepartum (Primary Dx) Social History Tobacco Use Types Packs/Day Years Used Date Smoking Tobacco: Never Assessed Comments Unknown Sex and Gender Information Value Date Recorded Sex Assigned at Not on file Legal Sex Female 3:22 AM SAND MILLER Gender Identity Not on file Sexual Orientation Not on file documented as of this encounter Plan of Treatment Not on file documented as of this encounter Procedures Procedure Name Priority Date/Time Associated Diagnosis Comments URINALYSIS W/REFLEX MICROSCOPIC Routine 11/20/2005 10:45 PM CDT documented in this encounter Results * URINALYSIS (11/20/2005 10:45 PM CDT) COLOR UA Pale Yellow INTERFAC E SYSTEM CLARITY UA Clear Clear INTERFACE SYSTEM SPECIFIC GRAVITY UA 1.015 [...] SYSTEM BLOOD UA Negative Negative INTERFACE SYSTEM 11/20/2005 10:4 5 PM CDT us Brayden Morrissey MD URINE ORDERABLES Final Result INTERFACE SYSTEM Refer to clinic/hospital department documented in this encounter Visit Diagnoses Diagnosis Other specified complication, antepartum(646.83)- Primary Other specified complication, antepartum documented in this encounter Care Teams Railroad Dining Car Stewardess Relationship Specialty Start Date End Date Carmelo Lozada MD [address] [place] [address] PCP - General Family Practice 04/03/19 documented as of this encounter
--- OUTSIDE RECORDS SUMMARY | 2024-08-21 11:01 | XMS_ITS | Encounter Summary ---
Author Organization [facility] Address [address] [place] [address] Care Team Providers Care Business Associate Name Role Phone Carmelo Lozada MD Primary Care Provider +1- [phone] Encounter Details Date Type Department Care Team (Late st Contact Info) Description 12/02/2005 Outpatient Historical [facility] [address] [place] [address] [address] [place] [address] Guy Saldivar MD [address] [place] [address] [address] [place] [address] Social History Tobacco Use Types Packs/Day Years Used Date Smoking Tobacco: Never Assessed Comments Unknown Sex and Gender Information Value Date Recorded Sex Assigned at Not on file Legal Sex Female 3:22 AM PRODUCTION FLOATER Gender Identity Not on file Sexual Orientation Not on file documented as of this encounter Plan of Treatment Not on file documented as of this encounter Visit Diagnoses Not on filedocumented in this encounter Care Teams Business Associate Relationship Specialty Start Date End Date Carmelo Lozada MD [address] [place] [address] PCP - General Family Practice 04/03/19 documented as of this encounter
--- OUTSIDE RECORDS SUMMARY | 2024-08-21 11:01 | XMS_ITS | Encounter Summary ---
Author Organization [facility] Address [address] [place] [address] Care Team Providers Care Transportation Museum Helper Name Role Phone Carmelo Lozada MD Primary Care Provider +1- [phone] Encounter Details Date Type Department Care Team (Latest Contact Info) Description 09/13/2005 Outpatient Historical [facility] Francheska Emmanuel MD [address] [place] [phone] SUPERVIS NORMAL 1ST PREG (Primary Dx) Social History Tobacco Use Types Packs/Day Years Used Date Smoking Tobacco: Never Assessed Comments Unknown Sex and Gender Information Value Date Recorded Sex Assigned at Not on file Legal Sex Female 3:22 AM CROCHET MACHINE OPERATOR Gender Identity Not on file Sexual Orientation Not on file documented as of this encounter Plan of Treatment Not on file documented as of this encounter Procedures Procedure Name Priority Date/Time Associated Diagnosis Comments GLUCOSE TOLERANCE 1 HR GESTATIONAL Routine 09/13/2005 10:42 AM CROCHET MACHINE OPERATOR CBC WITH DIFFERENTIAL Routine 09/13/2005 10:42 AM CROCHET MACHINE OPERATOR CBC WITH DIFFERENTIAL Routine 09/13/2005 10:42 AM CROCHET MACHINE OPERATOR documented in this encounter Results * (ABNORMAL) CBC WITH DIFFERENTIAL (09/13/2005 10:42 AM CROCHET MACHINE OPERATOR) NEUTROPHILS 71(H) 45 - 70 % INTERFAC E SYSTEM LYMPHOCYTES 22 16 - 45 % INTERFAC E SYSTEM MONOCYTES 5 3 - 13 % INTERFACE SYSTEM EOSINOPHILS 2 0 - 7 % INTERFAC E SYSTEM BASOPHILS 0 0 - 2 % INTERFACE SYSTEM NEUTROPHIL ABSOLUTE 5.32 1.90 - 7.00 K/uL INTERFACE SYSTEM LYMPHOCYTE ABSOLUTE 1.63 0.70 - 4.50 K/uL INTERFACE SYSTEM MONOCYTE ABSOLUTE 0.39 0.10 - 1.30 K/uL INTERFACE SYSTEM EOSINOPHIL ABSOLUTE 0.15 0.00 - 0.70 K/uL INTERFACE SYSTEM BASOPHILS ABSOLUTE 0.02 0.00 - 0.20 K/uL INTERFACE SYSTEM 09/13/2005 10:4 2 AM CROCHET MACHINE OPERATOR Francheska Emmanuel MD HEMATOLOGY ORDERABLES Final R esult Performing Organization Address [facility] de Phone Number INTERFACE SYSTEM Refer to clinic/hospital department * (ABNORMAL) CBC WITH DIFFERENTIAL (09/13/2005 10:42 AM CROCHET MACHINE OPERATOR) WBC 7.5 4.0 - 9.8 K/uL INTERFACE SYSTEM RBC 3.66(L) 3.90 - 4.90 M/uL INTERFACE SYSTEM HEMOGLOBIN 11.4(L) 11.8 - 14.8 g/dL INTERFACE SYSTEM HEMATOCRIT 32.3(L) 35.5 - 44.0 % INTERFACE SYSTEM MCV 88.3 82.0 - 99.0 fL INTERFACE SYSTEM MCH 31.1 27.2 - 32.6 pg INTERFACE SYSTEM MCHC 35.3 31.5 - 35.5 % INTERFACE SYSTEM RDW 13.0 11.5 - 14.5 % INTERFACE SYSTEM RDW-STDEV 41.7 37.1 - 48.7 fL INTERFACE SYSTEM PLATELETS 215 140 - 350 K/uL INTERFACE SYSTEM MPV 9.6 9.3 - 12.4 fL INTERFACE SYSTEM 09/13/2005 10:4 2 AM CROCHET MACHINE OPERATOR Francheska Emmanuel MD HEMATOLOGY ORDERABLES Final R esult Performing Organization Address [facility] de Phone Number INTERFACE SYSTEM Refer to clinic/hospital department * GLUCOSE TOLERANCE 1 HR GESTATIONAL (09/13/2005 10:42 AM CROCHET MACHINE OPERATOR) GLUCOSE 1 HR OBSTETRIC 129 65 - 139 mg/dL INTERFACE SYSTEM 09/13/2005 10:4 2 AM CROCHET MACHINE OPERATOR us Francheska Emmanuel MD CHEMISTRY ORDERABLES Final Re sult INTERFACE SYSTEM Refer to clinic/hospital department documented in this encounter Visit Diagnoses Diagnosis Supervision of normal first - Primary documented in this encounter Care Teams Transportation Museum Helper Relationship Specialty Start Date End Date Carmelo Lozada MD [address] [place] [address] PCP - General Family Practice 04/03/19 documented as of this encounter
--- OUTSIDE RECORDS SUMMARY | 2024-08-21 11:01 | XMS_ITS | Encounter Summary ---
Author Organization [facility] Address [address] [place] [address] Care Team Providers Care Weave Room Supervisor Name Role Phone Carmelo Lozada MD Primary Care Provider +1- [phone] Encounter Details Date Type Department Care Team (Late st Contact Info) Description 08/15/2005 Outpatient Historical [facility] [address] [place] [address] Francheska Emmanuel MD [address] [place] [phone] Social History Tobacco Use Types Packs/Day Years Used Date Smoking Tobacco: Never Assessed Comments Unknown Sex and Gender Information Value Date Recorded Sex Assigned at Not on file Legal Sex Female 3:22 AM INVENTORY CONTROL COORDINATOR Gender Identity Not on file Sexual Orientation Not on file documented as of this encounter Plan of Treatment Not on file documented as of this encounter Visit Diagnoses Not on filedocumented in this encounter Care Teams Weave Room Supervisor Relationship Specialty Start Date End Date Carmelo Lozada MD [address] [place] [address] PCP - General Family Practice 04/03/19 documented as of this encounter
--- OUTSIDE RECORDS SUMMARY | 2024-08-21 11:01 | XMS_ITS | Encounter Summary ---
Author Organization [facility] Address [address] [place] [address] Care Team Providers Care Marketing And Communications Officer Name Role Phone Carmelo Lozada MD Primary Care Provider +1 [phone] Encounter Details Date Type Department Care Team (Late st Contact Info) Description 12/02/2005 Outpatient Historical [facility] NON-STRESS TEST [facility] Guy Saldivar MD [address] [place] [address] Social History Tobacco Use Types Packs/Day Years Used Date Smoking Tobacco: Never Assessed Comments Unknown Sex and Gender Information Value Date Recorded Sex Assigned at Not on file Legal Sex Female 3:22 AM SURFACE WATER MANAGER Gender Identity Not on file Sexual Orientation Not on file documented as of this encounter Plan of Treatment Not on file documented as of this encounter Visit Diagnoses Not on filedocumented in this encounter Care Teams Marketing And Communications Officer Relationship Specialty Start Date End Date Carmelo Lozada MD [address] [place] [address] PCP - General Family Practice 04/03/19 documented as of this encounter
--- OUTSIDE RECORDS SUMMARY | 2024-08-21 11:01 | XMS_ITS | Encounter Summary ---
Author Organization [facility] Address [address] [place] [address] Care Team Providers Care Risk And Insurance Manager Name Role Phone Carmelo oLzada MD Primary Care Provider [phone] Encounter Details Date Type Department Care Team (Latest Contact Info) Description 12/26/2005 Inpatient Historical [facility] Cecile Dorado MD [address] [facility] DEPT: METAL [employer] ERECT[employer] [place] [address] [place], [place] [id number] OB Surg Complication NEC-Postpar (Primary Dx) Social History Tobacco Use Types Packs/Day Years Used Date Smoking Tobacco: Never Assessed Comments Unknown Sex and Gender Information Value Date Recorded Sex Assigned at Not on file Legal Sex Female 3:22 AM CONCRETE BUSTER OPERATOR Gender Identity Not on file Sexual Orientation Not on file documented as of this encounter Plan of Treatment Not on file documented as of this encounter Procedures Procedure Name Priority Date/Time Associated Diagnosis Comments CBC WITH DIFFERENTIAL Routine 12/28/2005 6:01 AM CDT CBC WITH DIFFERENTIAL Routine 12/28/2005 6:01 AM CDT BASIC METABOLIC PANEL Routine 12/28/2005 6:01 AM CDT CBC WITH DIFFERENTIAL Routine 12/26/2005 12:04 PM CDT CBC WITH DIFFERENTIAL Routine 12/26/2005 12:04 PM CDT CBC WITH DIFFERENTIAL Routine 12/26/2005 12:04 PM CDT C-REACTIVE PROTEIN Routine 12/26/2005 12 :04 PM CDT documented in this encounter Results * CBC WITH DIFFERENTIAL (12/28/2005 6:01 AM CDT) NEUTROPHILS 58 45 - 70 % INTERFAC E SYSTEM LYMPHOCYTES 31 16 - 45 % INTERFAC E SYSTEM MONOCYTES 5 3 - 13 % INTERFACE SYSTEM EOSINOPHILS 6 0 - 7 % INTERFAC E SYSTEM BASOPHILS 1 0 - 2 % INTERFACE SYSTEM NEUTROPHIL ABSOLUTE 4.26 1.90 - 7.00 K/uL INTERFACE SYSTEM LYMPHOCYTE ABSOLUTE 2.24 0.70 - 4.50 K/uL INTERFACE SYSTEM MONOCYTE ABSOLUTE 0.34 0.10 - 1.30 K/uL INTERFACE SYSTEM EOSINOPHIL ABSOLUTE 0.40 0.00 - 0.70 K/uL INTERFACE SYSTEM BASOPHILS ABSOLUTE 0.05 0.00 - 0.20 K/uL INTERFACE SYSTEM 12/28/2005 6:01 AM CDT us Cecile Graham MD HEMATOLOGY ORDERABLES Final Resu lt INTERFACE SYSTEM Refer to clinic/hospital department * (ABNORMAL) CBC WITH DIFFERENTIAL (12/28/2005 6:01 AM CDT) WBC 7.3 4.0 - 9.8 K/uL INTERFACE SYSTEM RBC 3.96 3.90 - 4.90 M/uL INTERFACE SYSTEM HEMOGLOBIN 11.4(L) 11.8 - 14.8 g/dL INTERFACE SYSTEM HEMATOCRIT 33.2(L) 35.5 - 44.0 % INTERFACE SYSTEM MCV 83.8 82.0 - 99.0 fL INTERFACE SYSTEM MCH 28.8 27.2 - 32.6 pg INTERFACE SYSTEM MCHC 34.3 31.5 - 35.5 % INTERFACE SYSTEM RDW 12.4 11.5 - 14.5 % INTERFACE SYSTEM RDW-STDEV 38.2 37.1 - 48.7 fL INTERFACE SYSTEM PLATELETS 470(H) 140 - 350 K/uL INTERFACE SYSTEM MPV 8.6(L) 9.3 - 12.4 fL INTERFACE SYSTEM 12/28/2005 6:01 AM CDT us Cecile Graham MD HEMATOLOGY ORDERABLES Final Resu lt Performing Organization Address [facility] Phone Number INTERFACE SYSTEM Refer to clinic/hospital department * (ABNORMAL) BASIC METABOLIC PANEL (12/28/2005 6:01 AM CDT) GLUCOSE 81 60 - 110 mg/dL INTERFACE SYSTEM Comment:Note: Effective December 12, 2005, reference range now reflects a fasting st ate. CREATININE 0.5 0.4 - 1.2 mg/dL INTERFACE SYSTEM CALCIUM 8.8 8.4 - 10.2 mg/dL INTERFACE SYSTEM BUN 8 6 - 20 mg/dL INTERFACE SYSTEM SODIUM 141 135 - 145 mmol/L INTERFACE SYSTEM POTASSIUM 3.2(L) 3.5 - 4.9 mmol/L INTERFACE SYSTEM CHLORIDE 105 96 - 108 mmol/L INTERFACE SYSTEM CO2 31(H) 22 - 30 mmol/L INTERFACE SYSTEM 12/28/2005 6:01 AM CDT us Cecile Graham MD CHEMISTRY ORDERABLES Final Resul t Performing Organization Address [facility] Phone Number INTERFACE SYSTEM Refer to clinic/hospital department * (ABNORMAL) CBC WITH DIFFERENTIAL (12/26/2005 12:04 PM CDT) NEUTROPHIL ABSOLUTE 9.34(H) 1.90 - 7.00 K/uL INTERFACE SYSTEM LYMPHOCYTE ABSOLUTE 2.82 0.70 - 4.50 K/uL INTERFACE SYSTEM MONOCYTE ABSOLUTE 0.26 0.10 - 1.30 K/uL INTERFACE SYSTEM EOSINOPHIL ABSOLUTE 0.00 0.00 - 0.70 K/uL INTERFACE SYSTEM BASOPHILS ABSOLUTE 0.26(H) 0.00 - 0.20 K/uL INTERFACE SYSTEM NEUTROPHILS, SEG 73(H) 45 - 70 % INTERFACE SYSTEM LYMPHOCYTES 22 16 - 45 % INTERFAC E SYSTEM MONOCYTES 2(L) 3 - 13 % INTERFACE SYSTEM EOSINOPHILS 0 0 - 7 % INTERFAC E SYSTEM BASOPHILS 2 0 - 2 % INTERFACE SYSTEM MYELOCYTES 1(H) <=0 % INTERFACE SYSTEM PLATELET EST. Consistent w/ count Normal INTERFACE SYSTEM RBC MORPHOLOGY Normal Normal INTER FACE SYSTEM 12/26/2005 12:0 4 PM CDT us Dusty Downing MD HEMATOLOGY ORDERABLES Final R esult Performing Organization Address [facility] Phone Number INTERFACE SYSTEM Refer to clinic/hospital department * CBC WITH DIFFERENTIAL (12/26/2005 12:04 PM CDT) NRBC 0 <=0 /100 WBC INTERFACE SYSTEM 12/26/2005 12:0 4 PM CDT us Dusty Downing MD HEMATOLOGY ORDERABLES Final R esult Performing Organization Address [facility] Phone Number INTERFACE SYSTEM Refer to clinic/hospital department * (ABNORMAL) CBC WITH DIFFERENTIAL (12/26/2005 12:04 PM CDT) WBC 12.8(H) 4.0 - 9.8 K/uL INTERFACE SYSTEM RBC 4.10 3.90 - 4.90 M/uL INTERFACE SYSTEM HEMOGLOBIN 12.2 11.8 - 14.8 g/dL INTERFACE SYSTEM HEMATOCRIT 34.1(L) 35.5 - 44.0 % INTERFACE SYSTEM MCV 83.2 82.0 - 99.0 fL INTERFACE SYSTEM MCH 29.8 27.2 - 32.6 pg INTERFACE SYSTEM MCHC 35.8(H) 31.5 - 35.5 % INTERFACE SYSTEM RDW 12.4 11.5 - 14.5 % INTERFACE SYSTEM RDW-STDEV 37.5 37.1 - 48.7 fL INTERFACE SYSTEM PLATELETS 447(H) 140 - 350 K/uL INTERFACE SYSTEM MPV 9.1(L) 9.3 - 12.4 fL INTERFACE SYSTEM 12/26/2005 12:0 4 PM CDT us Dusty Downing MD HEMATOLOGY ORDERABLES Final R esult Performing Organization Address [facility] Phone Number INTERFACE SYSTEM Refer to clinic/hospital department * (ABNORMAL) C-REACTIVE PROTEIN (12/26/2005 12:04 PM CDT) CRP 4.8(H) 0.0 - 0.8 mg/dL INTERFACE SYSTEM 12/26/2005 12:0 4 PM CDT us Dusty Downing MD CHEMISTRY ORDERABLES Final Re sult INTERFACE SYSTEM Refer to clinic/hospital department documented in this encounter Visit Diagnoses Diagnosis Other complication of obstetrical surgical wounds, condition or complication- Primary documented in this encounter Care Teams Risk And Insurance Manager Relationship Specialty Start Date End Date Carmelo Lozada MD [address] [place] [address] PCP - General Family Practice 04/03/19 documented as of this encounter
--- OUTSIDE RECORDS SUMMARY | 2024-08-21 11:01 | XMS_ITS | Encounter Summary ---
Author Organization [employer] Address [address] [place] [address] Care Team Providers Care Payroll Administrator Name Role Phone Carmelo Lozada MD Primary Care Provider [phone] Encounter Details Date Type Department Care Team (Latest Contact Info) Description 03/21/2006 Outpatient Historical [facility] Guy Saldivar MD [address] [place] [phone] Routine Gynecological Examination (Primary Dx) Social History Tobacco Use Types Packs/Day Years Used Date Smoking Tobacco: Never Assessed Comments Unknown Sex and Gender Information Value Date Recorded Sex Assigned at Not on file Legal Sex Female 3:22 AM PRECISION DEVICES INSPECTOR/TESTER Gender Identity Not on file Sexual Orientation Not on file documented as of this encounter Plan of Treatment Not on file documented as of this encounter Visit Diagnoses Diagnosis Routine gynecological examination- Primary documented in this encounter Care Teams Payroll Administrator Relationship Specialty Start Date End Date Carmelo Lozada MD [address] [place] [id number] PCP - General Family Practice 04/03/19 documented as of this encounter
--- OUTSIDE RECORDS SUMMARY | 2024-08-21 11:01 | XMS_ITS | Encounter Summary ---
Author Organization [employer] Address 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
--- OUTSIDE RECORDS SUMMARY | 2024-08-21 11:02 | XMS_ITS | Encounter Summary ---
Author Organization [facility] Address [address] [place] [address] Phone Care Team Providers Care Tongue And Groove Machine Operator Name Role Phone Jesus Cross MD Primary Care Provider [phone] No, Physician Primary Care Provider [phone] Yoselyn Prabhakar MD Primary Care Provider Daphne Pastor NP Primary Care Provider [phone] Yoselyn Prabhakar MD Primary Care Provider Yoselyn Prabhakar MD Primary Care Provider Yoselyn Prabhakar MD Primary Care Provider Cheryl Max MD Primary Care Provider Encounter Details Date Type Department Care Team (Late st Contact Info) Description 04/30/2018 Documentation [facility] Obstetrics and Gynecology [address] [place] [address] Lisset Mcclellan MD [address] [facility] [phone] [place] [address] Social History Tobacco Use Types Packs/Day Years Used Date Smoking Tobacco: Never Smokeless Tobacco: Never Alcohol Use Standard Drinks/Week Comments No 0 (1 standard drink = 0.6 oz pur e alcohol) Comments No Sex and Gender Information Value Date Recorded Sex Assigned at Not on file Legal Sex Female 10:49 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 Not on file Not on file N ot on file documented as of this encounter Plan of Treatment Not on file documented as of this encounter Visit Diagnoses Not on filedocumented in this encounter Additional Health Concerns Infection Onset Date Last Indicated Resolved Time COVID19 08/18/2021 08/18/2021 08/28/2021 3:05 AM DERRICK ENGINEER COVID: Recovered Comment:Added based on recent COVID infection. 08/28/2021 08/28/2021 12/26/2021 3:05 AM C DT documented as of this encounter Care Teams Tongue And Groove Machine Operator Relationship Specialty Start Date End Date Jesus Cross MD [address] [address] PCP - General Neurology 04/30/18 05/05/18 No, Physician PCP - General 05/06/18 11/15/19 Yoselyn Prabhakar MD PCP - General Family Medicine 11/16/19 08/25/21 Daphne Pastor NP PCP - General Nurse Practitioner 08/26/21 09/04/21 Yoselyn Prabhakar MD [address] [place] [address] PCP - General 09/05/21 11/16/21 Yoselyn Prabhakar MD [address] [place] [address] PCP - General 11/17/21 11/17/21 Yoselyn Prabhakar MD [address] [place] [address] PCP - General Family Medicine 03/15/23 03/27/23 Cheryl Max MD [facility] [address] [address] PCP - General Family Practice 12/05/23 documented as of this encounter
--- OUTSIDE RECORDS SUMMARY | 2024-08-21 11:02 | XMS_ITS | Encounter Summary ---
Author Organization [employer] Address 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
--- OUTSIDE RECORDS SUMMARY | 2024-08-21 11:02 | XMS_ITS | Clinical Summary ---
Author Organization [facility] Address [address] [place] [address] Care Team Providers Care Sewer Connector Name Role Phone Cheryl Max MD Primary Care Provider Allergies Active Allergy Reactions Criticality Noted Date Comments Amitriptyline Other (See comments) Medium 05/17/2018 Sleep disorder/subjective hallucinations Sulfa (Sulfonamide Antibiotics) Anaphylaxis,Hives High Reaction: Hives, Sulfasalazine Unknown 09/11/2007 Zonisamide Other (See comments) Medium 05/17/2018 Sleep disorder/sugjective hallucinations Medications * This document contains information received from the source organization and may not represent a complete record from that organization. albuterol HFA (PROVENTIL HFA,VENTOLIN HFA,PROAIR HFA) 90 mcg/actuation inhaler Inhale 2 puffs every 6 (six) hours as needed for wheezing Active SUMAtriptan (IMITREX) 100 mg tablet Take 1 tablet (100 mg total) by mouth once as needed for migraine. May repeat in 2 hours if needed. Max dose 2/24 hours 9 tablet 3 08/20/2018 Active multivitamin capsule Take 1 capsule by mouth every morning Active ibuprofen (ADVIL,MOTRIN) 600 mg tabletIndicatio ns:Pain Take 1 tablet (600 mg total) by mouth 3 (three) times a day as needed for pain 60 tablet 05/09/2022 Active LORazepam (ATIVAN) 0.5 mg tabletIndicatio ns:anxiety Take 1 tablet (0.5 mg total) by mouth daily as needed for anxiety Take 30 minutes prior to procedure. 5 tablet 03/28/2023 Active Adderall XR 10 mg 24 hr capsule 05/17/2023 Active propranoloL (INDERAL) 20 mg tablet Take 1 tablet (20 mg total) by mouth 2 (two) times a day 60 tablet 11 04/29/2024 Active erenumab-aooe (Aimovig Autoinjector) 140 mg/mL auto-injector Inject 1 mL (140 mg total) under the skin every 30 (thirty) days 90 day supply 3 mL 04/29/2024 Active ubrogepant (Ubrelvy) 50 mg tabletIndicatio ns:Headache disorder Take 1 tablet (50 mg total) by mouth as needed for migraine May repeat dose once in 2 hours if no relief. Do not exceed 2 doses in 24 hours. 10 tablet 2 07/03/2024 Active Active Problems Problem Noted Date Diagnosed Date Sebaceous cyst 06/05/2023 Cholecystitis, acute 05/06/2022 Assessment & Plan (05/09/2022 8:31 AM CDT): NPO - Ordering cbc, cmp - Starting zosyn 4.5g - Ordering RUQ US - 05/07 OR (Craft) - lap vicente + IOC - Post-op: Advance to regular diet, review IOC once uploaded to PACS, can d/c home if IOC reviewed 05/09 passing flatus and having bowel movements, tolerating low fat diet; pain well controlled; discharged with #5 Oxycodone 5mg, Tylenol and Ibuprofen Doximity follow up with COLLEGE ATHLETIC DIRECTOR/PA, surgical pathology pending at time of discharge Biliary colic 05/06/2022 Overview (05/07/2022): Added automatically from request for surgery [id number] Paresthesia of skin 12/06/2021 Assessment & Plan (12/06/2021 5:27 PM CDT): ASSESSMENT - 31 y.o. woman with a 9-month history of spells of circumferential pain around the mid chest that lasts several hours and is sometimes accompanied by a mixture of neurologic symptoms including upper body numbness and spasms of both upper extremities. - Her neurologic examination today was normal. - Brain MRI 11/18/21 with and without contrast, with high-res FLAIR axial and sagittal: normal - C and T spine MRI 10/2021: Mild scattered degenerative changes particularly at C5-C6. However, no MR findings to explain the patient's reported symptoms. - The neurologic symptoms do not localize to a specific nerve, spinal, or vascular distribution. Their composition is mixed, including paresthesias, weakness, and spasms. Their regional distribution varies and migrates from spells to spells. 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 I explained that this condition consists of neurologic symptoms that originate in psychological processes. The symptoms are entirely involuntary. - Regarding alternative possibilities, the spells are extremely unlikely to represent seizures due to their prolonged duration with preservation of consciousness and no post-ictal period. They do not represent episodes of multiple sclerosis because they are stereotyped and of too short a duration. They are not TIAs because the symptoms are not in a plausible vascular distribution. They are not symptoms of a brain mass or mets because they would require multiple points of brain tissue damage given the symptoms' multifocal nature. PLAN (phrased as addressed to the patient): - As we discussed, you have spells of neurologic symptoms for which the diagnosis in my opinion is functional neurologic syndrome . This is a condition in which neurologic symptoms are caused by psychological processes. - My diagnosis is based on features of your neurologic symptoms and not on anything related to psychology. This is a neurologic condition that is outside of voluntary control and requires treatment with cognitive behavioral therapy (CBT). - I recommend that you start CBT with a psychologist, with the goal to develop behavioral strategies to at first shorten your spells and later abort them and later prevent them from happening. - I will be happy to speak with your future psychologist if there are any questions about your treatment plan. - To find a psychologist I suggest you ask your primary doctor or contact the [facility] [place] ([phone]). - Contact my office in 2 months to report the number of spells you have had and whether you have started CBT. My total encounter time on 12/06/2021 was 67 minutes which was spent in the activities documented in the note. This includes time spent prior to the visit and after the visit in direct care of the patient. This time does not include time spent in any separately reportable services. NOTE: The present note includes, below, the line Ambulatory referral to Neurology . This statement is included as a mandatory component of the note template that I do not have the ability to remove. This statement has no clinical significance. I am NOT ordering a referral to Neurology. 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 Overweight (BMI 25.0-29.9) 07/02/2019 Lisfranc dislocation, left, subsequent encounter 12/13/2018 Headache disorder 08/04/2018 Women's annual routine gynecological examination 04/26/2018 Overview (04/26/2018): Added automatically from request for surgery [id number] Palpitations 04/10/2018 ADHD (attention deficit hyperactivity disorder) 10/01/2012 Ringworm 10/01/2012 Anxiety 09/09/2012 Asthma 09/11/2007 Family history of migraine headaches 09/11/2007 Resolved Problems Problem Noted Date Diagnosed Date Resolved Date Dizziness 07/02/2019 07/03/2019 Neutrophilic leukocytosis 07/02/2019 Post-operative state 05/28/2018 03 023 Encounter for contraceptive management 08/04/2015 02/07/2024 Transient hypertension of pr egnancy, antepartum 10/01/2012 02/07/2024 Abnormal finding on antenata l screening of mother 05/02/2012 02/07/2024 08/07/2011 02/07/2024 Encounters Date Type Department Care Team Description 08/20/2024 3:00 PM [employer]ICAN [employer]ER Office Visit [facility] [address] [place] [address] Joshua Mondragon MD Other microscopic hematuria 08/20/2024 2:26 PM [employer]ICAN [employer]ER - 08/20/2024 11:59 PM [employer] Hospital Encounter [facility] Medical Office Building [address] [facility] [place] [address] Other microscopic hematuria Discharge Disposition: Discharge to home or self care 06/03/2024 [facility] [address] [place] [address] Alicia Alvarez MA from Last 3 Months Immunizations Name Administration Dates Next Due Hep A, Adult 01/24/2016,06/29/2015 Hep B Vaccine 04/25/2016,01/24/2016,10/04/2015 Influenza, Quadrivalent, Spl it, Preservative Free, Intramuscular 06/18/2023,09/05/2022,07/02/2019 Surgical History Surgery Date Site/Laterality Comments SECTION 2005, 2012 EAR SURGERY 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 FOOT FUSION Left 1st, 2nd, and 3rd tarsometatarsal fusion SALPINGECTOMY Bilateral CHOLECYSTECTOMY 04/29/2022 - 05/29/2022 TUBAL LIGATION 05/06/2018 Medical History Medical History Date Comments Anxiety Asthma Seasonal allergies PONV (postoperative nausea and vomiting) prolonged few hour stay but still able to go home later that day, improved with compazine Migraine Now rare since s tarting Aimovig Exercise-induced asthma Family History Medical History Relation Name Comments Cancer Father Yeison Diabetes Father Yeison Heart attack Father Yeison Heart disease Father Yeison Hypertension Father Yeison spinal cell sarcoma Father Yeison Diabetes Mother Carmelo Heart disease Mother Carmelo Hypertension Mother Carmelo Anesthesia problems Neg Hx Relation Name Status Comments Father Yeison Mother Carmelo Social History Tobacco Use Types Packs/Day Years Used Date Smoking Tobacco: Former Cigarettes 2 - 2010 Smokeless Tobacco: Never Tobacco Cessation:Counseling Given: Not Answered Comments:pt. reports a pack would last 2 weeks Alcohol Use Standard Drinks/Week Comments No 0 (1 standard drink = 0.6 oz pur e alcohol) AUDIT-C Answer Date Recorded Frequency of Alcohol Consumption Not on file 04/29/2024 Q2: How many drinks containi ng alcohol do you have on a typical day when you are drinking? 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 Not on file Not on fi le Not on file Obstetrics History Para Term AB IAB SAB Ectopic Multiple Livin g Live Births 3 2 1 1 1 1 1 2 Date Outcome GA Total Labor Labor/2nd/3rd Weight Sex Type Anes PTL Gladys A1 A5 Name Clin 2006 Term F CS-LT ranv Neonat al Demise Complications:None 2012 SAB SAB Demise 2013 F CS-Un spec Living Complications:Pre eclampsia Comments 2006- AT 1 YEAR Last Filed Vital Signs Vital Sign Reading Time Taken Comments Blood Pressure 114/86 04/29/2024 2:39 PM CDT Pulse 81 04/29/2024 2:39 PM CDT Temperature 36.9 ??C (98.4 ??F) 03/17/2024 9:24 AM CD T Respiratory Rate 16 04/29/2024 2:39 PM CDT Oxygen Saturation 98% 04/29/2024 2:39 PM CDT Inhaled Oxygen Concentration - - Weight 58.1 kg (128 lb) 08/20/2024 12:44 PM [employer] Height 160 cm (5' 3 ) 08/20/2024 12:44 PM [employer] Body Mass Index 22.67 08/20/2024 12:44 PM M[employer] Plan of Treatment Health Maintenance Due Date Last Done Comments Depression Screening 1988 Pneumococcal vaccine <65 (1 of 2 - PCV) 1994 DTaP/Tdap/Td Vaccine (1 - Tdap) 11/02/1999 Varicella Vaccines (1 of 2 - 13+ 2-dose series) 2001 Cervical Cancer Screening 09/20/2022 09/20/2021 Covid-19 Vaccine (3 - 2023-2 5 season) 2024 03/21/2021, 02/28/2021 Influenza Vaccine (#1) 2024 , 09/05/2022, 07/02/2019 Regular Well Visit/Exam 18-64 02/06/2025, 09/28/2022, 09/20/2021 Hepatitis C Screening Completed 02/26/2023 HPV Vaccines Aged Out No longer eligi ble based on patient's age to complete this topic Procedures Procedure Name Priority Date/Time Associated Diagnosis Comments URINALYSIS AND REFLEX TO MICROSCOPIC AND CULTURE Routine 08/20/2024 1:36 PM [employer] Other microscopic hematuria POCT URINALYSIS DIPSTICK Routine 08/20/2024 12:50 PM M[employer] Other microscopic hematuria HEPATITIS PANEL, ACUTE Routine 02/26/2023 12:55 PM CDT PAP AND HIGH RISK HPV, REFLEX TO GENOTYPING Routine 09/20/2021 9:24 AM M[employer]ICAN [employer]ER Well woman exam with routine gynecological exam from Last 3 Months or Most Recently Relevant to Health Maintenance Results * (ABNORMAL) Urinalysis reflex to microscopic and culture Urine, in and out catheter (08/20/2024 1:36PM M[employer]) Color, ur Straw Yellow Comment:Testing performed by : [address], [place]., [address] Clarity, ur Clear Clear ELICIA Comment:Testing performed by : [address] [address] Specific gravity, ur 1.008 1.003 - 1.030 ELICIA Comment:Testing performed by : [address] [address] pH, urine 5.5 ELICIA Comment: Interpretive Data ? Urine pH is affected by diet, medications, systemic acid-base disturbances, and renal tubular function. ??pH may affect urinary stone formation. ??For example, urine pH below 6.0 may help reduce the tendency for calcium phosphate stones and pH greater than 6.0 may reduce the tendency for uric acid stone formation. Source: [facility] REI Current Interpretive Data was last revised on 2017 Testing performed by: [address] [address] Protein, ur ql Negative Negative ELICIA Comment:Testing performed by : [address] [address] Glucose, ur ql Negative Negative ELICIA Comment:Testing performed by : [address], [place]., [address] Ketones, ur 1+(A) Negative ELICIA Comment:Testing performed by : [address] [address] Bilirubin, ur Negative Negative ELICIA Comment:Testing performed by : [facility], [address] [place] [address]., [address] Blood, ur Negative Negative ELICIA Comment:Testing performed by : [facility], [address] [place] [address], [place]., [address] Urobilinogen, ur <2.0 <2.0 mg/dL ELICIA Comment:Testing performed by : [address] [address] Nitrite, ur Negative Negative ELICIA Comment:Testing performed by : [address], [place]., [address] Leukocyte esterase, ur Negative Negative ELICIA Comment:Testing performed by : [address] [address] UA reflex comment Reflex conditions for microscopic UA and culture not met. ELICIA Comment:Testing performed by : [address] [address] Urine, in and out catheter 08/20/2024 1:36 PM M[employer]ER 08/20/2024 4:44 PM M[employer] us Yousef Jasvir Mondrgaon MD LAB MICROBIOLOGY - G ENERAL ORDERABLES Final Result ELICIA [address] [facility] Department [place] [address] * (ABNORMAL) POCT urinalysis dipstick (08/20/2024 12:50 PM M[employer]) Color, Urine, POC Yellow Clarity, ur, POC Clear Clear Glucose, ur, POC Negative Negative MG/DL Bilirubin, ur, POC Negative Negative, Small, Moderate, Large Ketones, ur, POC Negative Negative Specific [place], POC 1.025 1.003 - 1.030 Blood, ur, POC 1+(A) Negative pH, ur, POC 6.0 5.0 - 8.0 Protein, ur, POC Negative Negative Urobilinogen, urine, POC 0.2 0.2 - 1.0 mg/dL Nitrite, ur, POC Negative Negative Leukocytes, ur, POC 1+(A) Negative Lot Number 0 Urine 08/20/2024 12:5 0 PM [employer] Joshua Mondragon MD POINT OF CARE TEST O RDERABLES Final Result * Hepatitis panel, acute (02/26/2023 12:55 PM CDT) Hep A IgM Nonreactive Nonreactive [facility] Hep B core IgM Nonreactive Nonreactive [facility] Hep C Ab Nonreactive Nonreactive [facility] Comment:Antibodies to HCV no t detected. Does NOT exclude the possibility of recent exposure to HCV. Current interpretive data was last revised on 22 HepBsAg Nonreactive Nonreactive [facility] Blood 02/26/2023 12:5 5 PM CDT 02/26/2023 2:23 PM CDT Daphne Vargas NP LAB MICROBIOLOGY - GENERA L ORDERABLES Final Result [facility] Department [place] [address] * Pap and High Risk HPV, reflex to Genotyping (09/20/2021 9:24 AM M[employer]) Thin prep (Pap test) 09/20/2021 9:24 AM M[employer]ER 09/20/2021 7:08 PM M[employer]ER Narrative PATHOLOGY [facility] - 09/26/2021 10:32 AM M[employer]ICAN FO[employer]KER EPIC results best viewed via link to PDF [facility] [place] [address] Note to Patients: This report may contain a detailed description of human tissue sent by a health care provider to the laboratory for pathologic evaluation. The content of this report is essential for diagnosis and may provide important critical findings. This information may be unfamiliar to patients to review without a medical professional present. It is advised that the patient review this report in the presence of a health care provider who can answer questions and explain the details. 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 ?? FINAL INTERPRETATION SOURCE OF SPECIMEN: ? Liquid based Thin Prep pap with HPV STATEMENT OF ADEQUACY: ?- Satisfactory for evaluation ?- Endocervical cells/transformation zone sample absent GENERAL CATEGORY: ?- Negative for squamous intraepithelial lesion or malignancy ?? Comments HPV Result: ??NEGATIVE for high risk types of Human Papilloma Virus (HPV) RNA This probe detects the presence of HPV types: 16, 18, 31, 33, 35, 39, 45, 51, 52, 56, 58, 59, 66 and 68. ??This HPV test was performed at [facility] in [place], [place] utilizing the Gen-Probe Aptima assay. 09/26/2021 10:32 AKIRA Stokes(ASCP) Report Electronically Reviewed and Signed Out By AKIRA Stokes(ASCP) 09/26/2021 10:32:40 Cervicovaginal Cytology (Pap Test) Disclaimer: The Pap test is a screening test used to detect cervical cancer and its precursors; it is not a diagnostic procedure. False negative and false positive results do occur. Pap test results should be interpreted in the context of pertinent clinical information and biopsy results as indicated. Gross Description A. ??Liquid based Thin Prep pap with HPV: ??Cervical/vaginal - Screening ThinPrep ?? Clinical Diagnosis and History Last Menstrual Period: unknown The patient is a 30 year old female with screening. The HPV test was performed by [facility], [address] [place] [address]. Report Images and scanned documents, if included only viewable in PDF version The performance characteristics of some immunohistochemical stains, in-situ hybridization and fluorescence in-situ hybridization tests and immunophenotyping by flow cytometry cited in this report (if any) were determined by the Surgical Pathology Department at [facility] as part of an ongoing quality process lead program and in compliance with federally mandated regulations drawn from the Clinical Laboratory Improvement Act of 1988 (CLIA '88). ??Some of these tests rely on the use of analyte specific reagents and are subject to specific labeling requirements by the US Food and Drug Administration. ??Such diagnostic tests may only be performed in a facility that is certified by the Department of Health and Human Services as a high complexity laboratory under CLIA '88. ??The FDA has determined that such clearance or approval is not necessary. ??This test is used for clinical purposes. ??It should not be regarded as investigational or for research. ??Nevertheless, federal rules concerning the medical use of analyte specific reagents require that the following disclaimer be attached to the report: This test was developed and its performance characteristics determined by the Surgical Pathology Department of [facility]. ??It has not been cleared or approved by the U. S. Food and Drug Administration. Lisset Mcclellan MD LAB CYTOLOGY ORDERABLES Final Result PATHOLOGY [facility] 3rd Floor [place], [place] [phone] from Last 3 Months or Most Recently Relevant to Health Maintenance Insurance [employer] Address: [address] [place] [address] [employer] Address: [place] [address] [employer] Address: [address] [place] [address] [employer] Address: [facility] [address] [place] [address] Advance Directives For more information, please contact: [phone] * Full Code (Latest Code Status on File) Date Activated Date Inactivated Comments 05/06/2022 10:05 PM 05/09/2022 3:46 PM * Full Code Date Activated Date Inactivated Comments 11/16/2021 9:37 AM 11/17/2021 7:34 PM * Full Code Date Activated Date Inactivated Comments 07/02/2019 5:24 PM 07/03/2019 7:36 PM Care Teams Sewer Connector Relationship Specialty Start Date End Date Cheryl Max MD [address] [place] [address] [place] [id number] PCP - General Family Practice 12/05/23
--- OUTSIDE RECORDS SUMMARY | 2024-08-21 11:02 | XMS_ITS | Continuity of Care Document ---
Author Organization [facility] Address [address] [address] [place] [address] Phone Care Team Providers Care Certified Nursing Attendant Name Role Phone Blake Khanna MD, Guy Unavailable Unavailable Allergies, Adverse Reactions, Alerts Substance Reaction Status Criticality sulfasalazine Active No Information amitriptyline Active No Information Sulfa (Sulfonamide Antibiotics) Active No Information Medications Medication Instructions Dosage Effective Dates (start - stop) Status Comments Mobic 7.5 mg tablet take 1 tablet by ora l route every day - Active Aimovig Autoinjector 140 mg/mL subcutaneous auto-injector inject (140MG) by subcutaneous route every month in the abdomen, thigh, or outer area of upper arm 140 MG - Active propranolol 20 mg tablet take 1 tablet by oral route 3 times every day 20 MG - Active lorazepam 2 mg/mL oral concentrate take 0.5 milliliter by oral route 3 times every day 1 MG - Active Imitrex 100 mg tablet take 1 tablet by o ral route after onset of migraine; may repeat after 2 hours if headache returns,not to exceed 200mg in 24hrs 100 MG - Active ProAir RespiClick 90 mcg/actuation breath activated inhale 2 puff by inhalation route every 4 - 6 hours as needed 180 MCG - Active Claritin 5 mg/5 mL oral solution take 10 milliliter by oral route every day 10 MG - Active Procedures Procedure Date OFFICE/OUTPATIENT VISIT EST Ropivacaine HCl injection Betamethasone acet&sod phosp DRAIN/INJECT JOINT/BURSA RADEX FOOT COMPL MINIMUM 3 VIEWS 2019 OFFICE/OUTPATIENT VISIT EST RADEX WRST COMPL MINIMUM 3 VIEWS 2019 RADEX FOOT COMPL MINIMUM 3 VIEWS 2019 OFFICE/OUTPATIENT VISIT EST RADEX FOOT COMPL MINIMUM 3 VIEWS 2018 POSTOP FOLLOW-UP VISIT RADEX FOOT COMPL MINIMUM 3 VIEWS 2018 POSTOP FOLLOW-UP VISIT RADEX FOOT COMPL MINIMUM 3 VIEWS 2018 POSTOP FOLLOW-UP VISIT FUSION OF FOOT BONES OFFICE/OUTPATIENT VISIT EST OFFICE/OUTPATIENT VISIT NEW Advance Directives Directive Yes / No Effective Date File Name No Information Encounters Encounter Description Practice Location Reason(s) For Visit Diagnoses Date Provider Providers Copied on Encounter OFFICE/OUTPA TIENT VISIT EST [facility], [address], [place], [address], [place] tel:[phone] [facility] [place] Dislocation of tarsometatarsal joint of left foot, subsequent encounterSurgery follow-up 0 Blake Tovar. [address], [place], [place], [id number] . tel: [phone] OFFICE/OUTPA TIENT VISIT EST [facility], [address], [place], [address], [place] tel:[phone] [facility] [place] Dislocation of tarsometatarsal joint of left foot, subsequent encounterSurgery follow-up 0 Blake Tovar. [address], [place], [place], [id number] . tel: [phone] OFFICE/OUTPA TIENT VISIT EST [facility], [address], [place], [address], [place] tel:[phone] [facility] [place] Dislocation of tarsometatarsal joint of left foot, subsequent encounterPain in right wristBody mass index (BMI) 29.0-29.9, adultSurgery follow-up 0 Blake Tovar. [address], [place], [place], [id number] . tel: [phone] [facility], [address], [place], [address], [place] tel:[phone] [facility] [place] Dislocation of tarsometatarsal joint of left foot, subsequent encounterSurgery follow-up Jun-0 2-201 9 Blake Tovar. [address], [place], [place], [address] . tel: [phone] [facility], [address], [place], [address], [place] tel:[phone] [facility] [place] Dislocation of tarsometatarsal joint of left foot, subsequent encounterSurgery follow-up 2 - 9 Blake Tovar. [address], [place], [place], [address] . tel: [phone] [facility], [address], [place], [address], [place] tel:[phone] [facility] [place] Dislocation of tarsometatarsal joint of left foot, subsequent encounterLeft foot pain Sep-2 - 9 Blake Tovar. [address], [place], [place], [address] . tel: [phone] [facility], [address], [place], [address], [place] tel:[phone] [facility] Dislocation of tarsometatarsal joint of left foot, init Sep-0 9- 9 Blake Sheltonneth. [address], [place], [place], [id number] . tel: [phone] OFFICE/OUTPA TIENT VISIT EST [facility], [address], [place], [address], [place] tel:[phone] [facility] Dislocation of tarsometatarsal joint of left foot, initial encounterLeft foot pain Sep-0 6-201 9 Blake Tovar. [address], [place], [place], [id number] . tel: [phone] [facility], [address], [place], [address], [place] tel:[phone] [facility] Arthritis, midfoot 9 Blake Tovar. [address], [place], [place], [id number] . tel: [phone] OFFICE/OUTPA TIENT VISIT NEW [facility], [address], [place], [address], tel:[phone] [facility] Arthritis, midfootBody mass index (BMI) 29.0-29.9, adultLeft foot pain 9 Blake Tovar. [address], [place], [place], [address] . tel: [phone] Family History Family Member Type Diagnosis Age At Onset Father Problem (finding) Diabetes mellitus Father Problem (finding) Cancer, unknown Mother Problem (finding) hypertension Payers Payer name Insurance type Covered alliance party ID Authoriza tion(s) No Information Social History Type Description Quantity Date Captured Comments Alcohol Use Details No Caffeine Use Details Unknown Tobacco Use Status Current non-smoker 20 Smoking Status Never smoker Sex Female Chief Complaint And Reason For Visit No Information Reason For Referral Reason For Referral No Information Plan Of Treatment Date Type Action Status Referral Ordered: RADEX WRST COMPL MINIMUM 3 VIEWS RT ordered Referral Ordered: RADEX FOOT COMPL MINIMUM 3 VIEWS LT ordered Referral Ordered: CT LXTR C-MATRL LT foot Appointment date/timeframe: 04/01/2019 ordered History Of Present Illness Encounter Date Complaint History Of Prese nt Illness No Information Functional Status Date Functional Assessmen t No Information Instructions Date Instruction Additional Infor mation Discussed treatment options Rela vandana to Surgery follow-up Discussed treatment options Rela vandana to Surgery follow-up Rest and Ice. Related to Surge ry follow-up Giving encouragement to exercise Related to Body mass index (BMI) 29.0-29.9, adult Discussed treatment options Rela vandana to Surgery follow-up Discussed treatment options Rela vandana to Surgery follow-up Discussed treatment options Rela vandana to Surgery follow-up Discussed treatment options Rela vandana to Left foot pain Discussed treatment options Rela vandana to Left foot pain Dietary needs education Related to Body mass index (BMI) 29.0-29.9, adult Discussed treatment options Rela vandana to Left foot pain Assessments Type Assessment Date assessment Dislocation of tarso metatarsal joint of left foot, subsequent encounter assessment Surgery follow-up Patient Care Teams Name Effective Dates (start - stop) Status Members No Information
--- OUTSIDE RECORDS SUMMARY | 2024-08-21 11:02 | XMS_ITS | Continuity of Care Document ---
Author Organization [facility] Address [address] [facility] [address] [place] [phone] Phone Care Team Providers Care Director [place] Sales Name Role Phone Mike PT, DPT, Chito Unavailable Unavailable Procedures Procedure Date Therapeutic Exercise Therapeutic Activities Manual Therapy Therapeutic Exercise Therapeutic Activities Manual Therapy Therapeutic Exercise Therapeutic Activities Neuromuscular Re-Ed Manual Therapy Therapeutic Exercise Therapeutic Activities Neuromuscular Re-Ed Manual Therapy Therapeutic Exercise Therapeutic Activities Neuromuscular Re-Ed Manual Therapy Therapeutic Exercise Therapeutic Activities Neuromuscular Re-Ed Manual Therapy Therapeutic Exercise Therapeutic Activities Neuromuscular Re-Ed Manual Therapy Therapeutic Exercise Therapeutic Activities Manual Therapy Therapeutic Exercise Therapeutic Activities Manual Therapy Therapeutic Exercise Therapeutic Activities Neuromuscular Re-Ed Manual Therapy Therapeutic Exercise Therapeutic Activities Neuromuscular Re-Ed Manual Therapy PT Evaluation Moderate Complexity Therapeutic Exercise Therapeutic Activities Manual Therapy Advance Directives Directive Yes / No Effective Date File Name No Information Encounters Encounter Description Practice Location Reason(s) For Visit Diagnoses Date Provider Providers Copied on Encounter [address] [address], [place], [place], [id number], tel:[phone] [facility] No Information 9 Makler Luke. . Referring Provider: Papa Mariscal, Nahid [address], [place], [address]. tel:[phone] [place] [address] [place] [address], [place], [place], [id number], tel:[phone] [facility] No Information 9 Makler Luke. . Referring Provider: Papa Mariscal, Nahid [address], [place], [address]. tel:[phone] [place] [address] [place] [address], [place], [place], [id number], [place] tel:[phone] [facility] No Information 9 Makler Luke. . Referring Provider: Nahid Burk [address], [place], [address]. tel:[phone] [place] [address] [place], [place] [address]e [facility], [place], [place], [id number], tel:[phone] [facility] No Information 9 Makler Luke. . Referring Provider: Nahid Burk [address], [place], [address]. tel:[phone] [place] [place] [address], [place], [place], [id number], [place] tel:[phone] [facility] No Information 9 Makler Luke. . Referring Provider: Nahid Burk [address], [place], [address]. tel:[phone] [place] [address] [address] [facility] [address], [place], [place], [address], [place] tel:[phone] [facility] No Information 9 Makler Luke. . Referring Provider: Nahid Burk [address], [place], [address]. tel:[phone] [place] [address], [address] [facility], [place], [place], [id number], [place] tel:[phone] [facility] No Information 201 9 Makler Luke. . Referring Provider: Nahid Burk [address], [place], [address]. tel:[phone] [place] [address], [address] [place], [place] [address], [place], [place], [id number], [place] tel:[phone] [facility] No Information 9 Makler Luke. . Referring Provider: Nahid Burk [address], [place], [address]. tel:[phone] [place] [address], [address] [facility], [place], [address], [place] tel:[phone] [facility] No Information 9 Makler Luke. . Referring Provider: Nahid Burk [address], [place], [address]. tel:[phone] [place] [address], [address] [facility], [place], [place], [address], [place] tel:[phone] [facility] No Information 9 Makler Luke. . Referring Provider: Nahid Burk [address], [place], [address]. tel:[phone] [place] [address], [address] [facility], [place], [place], [id number], [place] tel:[phone] [facility] No Information 9 Makler Luke. . Referring Provider: Nahid Burk [address] [place], [address]. tel:[phone] [facility], [address] [facility] [address], [place], [place], [id number], tel:[phone] [facility] No Information 9 Mike Dale. . Referring Provider: Papa Mariscal, [address], [place], [address]. tel:[phone] Family History Family Member Type Diagnosis Age At Onset No Information Payers Payer name Insurance type Covered democrat ID Authorpenelope orta(s) [facility] [id number] Social History Type Description Quantity Date Captured Comments Sex Female Smoking Status No Information Chief Complaint And Reason For Visit No Information Reason For Referral Reason For Referral No Information History Of Present Illness Encounter Date Complaint History Of Prese nt Illness No Information Functional Status Date Functional Assessmen t No Information Instructions Date Instruction Additional Infor mation No Information Assessments Type Assessment Date No Information Patient Care Teams Name Effective Dates (start - stop) Status Members No Information
--- OUTSIDE RECORDS SUMMARY | 2024-08-21 11:02 | XMS_ITS | Encounter Summary ---
Author Organization [employer] Address 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 Gender Identity Not on file Sexual Orientation Not on file documented as of this encounter Plan of Treatment Not on file documented as of this encounter Procedures Procedure Name Priority Date/Time Associated Diagnosis Comments TSH REFLEXIVE Routine 05/02/2005 10:01 AM CDT HEPATITIS B SURFACE ANTIGEN Routine 05/02/2005 10:01 AM CDT RUBELLA IGG Routine 05/02/2005 10:01 AM CDT CBC WITH DIFFERENTIAL Routine 05/02/2005 10:01 AM CDT DRUG SCREEN, URINE Routine 05/02/2005 10 :01 AM CDT RPR Routine 05/02/2005 10:01 AM CDT URINALYSIS W/REFLEX MICROSCOPIC Routine 05/02/2005 10:01 AM CDT documented in this encounter Results * URINALYSIS (05/02/2005 10:01 AM CDT) COLOR UA Yellow INTERFACE SYSTEM CLARITY UA Clear Clear INTERFACE SYSTEM SPECIFIC GRAVITY UA 1.015 1.001 - 1.035 INTERFACE SYSTEM PH UA 8.0 5.0 - 8.0 INTERFACE SYSTEM LEUKOCYTE ESTERASE UA Negative Negative INTERFACE SYSTEM NITRITE UA Negative Negative INTERFACE SYSTEM PROTEIN UA Negative Negative INTERFACE SYSTEM GLUCOSE UA Negative Negative INTERFACE SYSTEM KETONES UA Negative Negative INTERFACE SYSTEM UROBILINOGEN UA <1 <1 mg/dL INTE RFACE SYSTEM BILIRUBIN UA Negative Negative INTERFA CE SYSTEM BLOOD UA Negative Negative INTERFACE SYSTEM 05/02/2005 10:0 1 AM CDT us Francheska Emmanuel MD URINE ORDERABLES Final Result INTERFACE SYSTEM Refer to clinic/hospital department * DRUG SCREEN, URINE (05/02/2005 10:01 AM CDT) COMMENT, TOXICOLOGY See Separate Comment INTERFACE SYSTEM Comment: The urine sample was not handled as a legal specimen and was received wi thout a chain of custody. ??The results should be used only for medical purposes. ??A confirmation is recommended for all presumptive positive results. ??A negative result indicates the analyte, if present, is below the screening threshold. Drug ? Ref. Range ? Screening Threshold Amphetamines ?Negative ? 500 ng/mL Barbiturates ?Negative ? 200 ng/mL Benzodiazepines ? Negative ? 100 ng/mL Cannabinoids ?Negative ?50 ng/mL Cocaine Metabolite ?Negative ? 300 ng/mL Opiate ?Negative ? 300 ng/mL Phencyclidine ?Negative ?25 ng/mL AMPHETAMINE QUAL, URINE Negative INTERFACE SYSTEM BARBITURATE QUAL, URINE Negative INTERFACE SYSTEM BENZODIAZEPINE QUAL, URINE Negative INTERFACE SYSTEM CANNABINOIDS QUAL, URINE Negative INTERFACE SYSTEM COCAINE QUAL URINE Negative I NTERFACE SYSTEM OPIATE QUAL, URINE Negative I NTERFACE SYSTEM PCP QUAL, URINE Negative INTE RFACE SYSTEM 05/02/2005 10:0 1 AM CDT us Francheska Emmanuel MD URINE ORDERABLES Final Result Performing Organization Address [facility] Phone Number INTERFACE SYSTEM Refer to clinic/hospital department * (ABNORMAL) CBC WITH DIFFERENTIAL (05/02/2005 10:01 AM CDT) WBC 7.8 4.0 - 9.8 K/uL INTERFACE SYSTEM RBC 4.15 3.90 - 4.90 M/uL INTERFACE SYSTEM HEMOGLOBIN 13.0 11.8 - 14.8 g/dL INTERFACE SYSTEM HEMATOCRIT 35.5 35.5 - 44.0 % INTERFACE SYSTEM MCV 85.5 82.0 - 99.0 fL INTERFACE SYSTEM MCH 31.3 27.2 - 32.6 pg INTERFACE SYSTEM MCHC 36.6(H) 31.5 - 35.5 % INTERFACE SYSTEM RDW 12.2 11.5 - 14.5 % INTERFACE SYSTEM RDW-STDEV 38.2 37.1 - 48.7 fL INTERFACE SYSTEM PLATELETS 248 140 - 350 K/uL INTERFACE SYSTEM MPV 9.3 9.3 - 12.4 fL INTERFACE SYSTEM 05/02/2005 10:0 1 AM CDT Francheska Emmanuel MD HEMATOLOGY ORDERABLES Final R esult Performing Organization Address [facility] de Phone Number INTERFACE SYSTEM Refer to clinic/hospital department * TSH REFLEXIVE (05/02/2005 10:01 AM CDT) Pathologist [facility] TSH 1.24 0.27 - 4.20 uU/mL INTERFACE SYSTEM 05/02/2005 10:0 1 AM CDT Francheska Emmanuel MD CHEMISTRY ORDERABLES Final Re sult Performing Organization Address [facility] Phone Number INTERFACE SYSTEM Refer to clinic/hospital department * HEPATITIS B SURFACE ANTIGEN (05/02/2005 10:01 AM CDT) Pathologist [facility] HEPATITIS B SURFACE AG NON-REACT JANELLE NON-REACT JANELLE INTERFACE SYSTEM Comment: Lab test performed by: [email or web address] [address] ASHLEY HYLTON MD 05/02/2005 10:0 1 AM CDT Result [facility] Francheska Emmanuel MD CHEMISTRY ORDERABLES Final Re sult Performing Organization Address [facility] Phone Number INTERFACE SYSTEM Refer to clinic/hospital department * RUBELLA IGG (05/02/2005 10:01 AM CDT) Pathologist [facility] RUBELLA IGG <0.91 EIA Value INTERFAC E SYSTEM Comment: EIA VALUE ? EXPLANATION OF TEST RESULTS --------- ? <0.91 ?NEGATIVE - NO RUBELLA IGG ANTIBODY ?DETECTED. 0.91 - 1.09 ?EQUIVOCAL > OR = 1.10 ?POSITIVE - RUBELLA IGG ANTIBODY DETECTED. THE PRESENCE OF RUBELLA IGG ANTIBODY SUGGESTS IMMUNIZATION OR PAST OR CURRENT INFECTION WITH RUBELLA VIRUS. ? Lab test performed by: [email or web address] [address] ASHLEY HYLTON MD 05/02/2005 10:0 1 AM CDT Result [facility] Francheska Emmanuel MD CHEMISTRY ORDERABLES Final Re sult Performing Organization Address [facility] Co de Phone Number INTERFACE SYSTEM Refer to clinic/hospital department * RPR (05/02/2005 10:01 AM CDT) RPR NON-REACT JANELLE NON-REACT JANELLE INTERFACE SYSTEM Comment: Lab test performed by: [email or web address] [address] [place] [address] ASHLEY HYLTON MD 05/02/2005 10:0 1 AM CDT Francheska Emmanuel MD CHEMISTRY ORDERABLES Final Re sult Performing Organization Address [facility] de Phone Number INTERFACE SYSTEM Refer to clinic/hospital department documented in this encounter Visit Diagnoses Diagnosis Supervision of normal first - Primary documented in this encounter Care Teams Sales Development Coordinator Relationship Specialty Start Date End Date Carmelo Lozada MD [address] [place] [address] PCP - General Family Practice 04/03/19 documented as of this encounter
--- OUTSIDE RECORDS SUMMARY | 2024-08-21 11:02 | XMS_ITS | Referral Summary ---
Author Organization [facility] Address [address] [place] [address] Care Team Providers Care Management Trainee Name Role Phone Cheryl Max MD Primary Care Provider Encounters Date Type Department Care Team Description 08/20/2024 2:26 PM PRINTING PRESS MACHINIST - 08/20/2024 11:59 PM PRINTING PRESS MACHINIST Hospital Encounter [facility] Medical Office Building 1 Lab [facility] [place] [address] Other microscopic hematuria Discharge Disposition: Discharge to home or self care 08/20/2024 3:00 PM PRINTING PRESS MACHINIST Office Visit [facility] [address] [facility] [address] [place] [phone] Joshua Mondragon MD Other microscopic hematuria 06/03/2024 [facility] [facility] [address] [place] [address] Alicia Alvarez MA from Last 3 Months Allergies Active Allergy Reactions Criticality Noted Date [...] Tylenol and Ibuprofen Doximity follow up with OUTPATIENT INTERVIEWING CLERK/PA, surgical pathology pending at time of discharge Biliary colic 05/06/2022 Overview (05/07/2022): Added automatically from request for surgery [id number] Paresthesia of skin 12/06/2021 Assessment & Plan [...] ask your primary doctor or contact the ([phone]). 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 Overweight (BMI 25.0-29.9) 07/02/2019 Lisfranc dislocation, left, subsequent encounter 12/13/2018 Headache disorder 08/04/2018 Women's annual routine gynecological examination 04/26/2018 Overview (04/26/2018): Added automatically from request for surgery [id number] Palpitations 04/10/2018 ADHD (attention deficit hyperactivity disorder) [...] screening of mother 05/02/2012 02/07/2024 08/07/2011 02/07/2024 Immunizations Name Administration Dates Next Due Hep A, Adult 01/24/2016,06/29/2015 Hep B Vaccine 04/25/2016,01/24/2016,10/04/2015 Influenza, Quadrivalent, Spl it, Preservative Free, Intramuscular 06/18/2023,09/05/2022,07/02/2019 Social History Tobacco Use Types Packs/Day Years [...] on file Legal Sex Female 10:49 PM PRINTING PRESS MACHINIST Gender Identity Not on file Sexual Orientation Not on file 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 Start 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 End 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 Not on file Not on fi le Not on file Last Filed Vital Signs Vital Sign Reading Time Taken Comments Blood Pressure 114/86 04/29/2024 2:39 PM CDT Pulse 81 04/29/2024 2:39 PM CDT Temperature 36.9 ??C (98.4 ??F) 03/17/2024 9:24 AM CD T Respiratory Rate 16 04/29/2024 2:39 PM CDT Oxygen Saturation 98% 04/29/2024 2:39 PM CDT Inhaled Oxygen Concentration - - Weight 58.1 kg (128 lb) 08/20/2024 12:44 PM PRINTING PRESS MACHINIST Height 160 cm (5' 3 ) 08/20/2024 12:44 PM PRINTING PRESS MACHINIST Body Mass Index 22.67 08/20/2024 12:44 PM PRINTING PRESS MACHINIST Plan of Treatment Not on file Procedures Procedure Name Priority Date/Time Associated Diagnosis Comments URINALYSIS AND REFLEX TO MICROSCOPIC AND CULTURE Routine 08/20/2024 1:36 PM PRINTING PRESS MACHINIST Other microscopic hematuria POCT URINALYSIS DIPSTICK Routine 08/20/2024 12:50 PM PRINTING PRESS MACHINIST Other microscopic hematuria HEPATITIS PANEL, ACUTE Routine 02/26/2023 12:55 PM CDT PAP AND HIGH RISK HPV, REFLEX TO GENOTYPING Routine 09/20/2021 9:24 AM PRINTING PRESS MACHINIST Well woman exam with routine gynecological exam from Last 3 Months or Most Recently Relevant to Health Maintenance Results * (ABNORMAL) Urinalysis reflex to microscopic and culture Urine, in and out catheter (08/20/2024 1:36PM PRINTING PRESS MACHINIST) Color, ur Straw Yellow Comment:Testing performed by : [address] [address] Clarity, ur Clear Clear ELICIA Comment:Testing performed by : [address] [address] Specific gravity, ur 1.008 1.003 - 1.030 ELICIA Comment:Testing performed by : [address] [address] pH, urine 5.5 ELICIA Comment: Interpretive Data ? Urine pH is affected by diet, medications, systemic acid-base disturbances, and renal tubular function. ??pH may affect urinary stone formation. ??For example, urine pH below 6.0 may help reduce the tendency for calcium phosphate stones and pH greater than 6.0 may reduce the tendency for uric acid stone formation. Source: [facility] Soundtracker Current Interpretive Data was last revised on 2017 Testing performed by: [address] [address] Protein, ur ql Negative Negative ELICIA Comment:Testing performed by : [address] [address] Glucose, ur ql Negative Negative ELICIA Comment:Testing performed by : [address] [address] Ketones, ur 1+(A) Negative CERNER MH Comment:Testing performed by : [facility], [address] [place] [address], [place]., [address] Bilirubin, ur Negative Negative ELICIA Comment:Testing performed by : [address], [place]., [address] Blood, ur Negative Negative ELICIA Comment:Testing performed by : [address], [place]., [address] Urobilinogen, ur <2.0 <2.0 mg/dL ELICIA Comment:Testing performed by : [address], [place]., [address] Nitrite, ur Negative Negative ELICIA Comment:Testing performed by : [address], [place]., [address] Leukocyte esterase, ur Negative Negative ELICIA Comment:Testing performed by : [address], [place]., [address] UA reflex comment Reflex conditions for microscopic UA and culture not met. ELICIA Comment:Testing performed by : [address], [place]., [address] Urine, in and out catheter 08/20/2024 1:36 PM PRINTING PRESS MACHINIST 08/20/2024 4:44 PM PRINTING PRESS MACHINIST us Yousef Jasvir Mondragon MD LAB MICROBIOLOGY - G ENERAL ORDERABLES Final Result ELICIA [address] [facility] [place] [address] * (ABNORMAL) POCT urinalysis dipstick (08/20/2024 12:50 PM PRINTING PRESS MACHINIST) Color, Urine, POC Yellow Clarity, ur, POC Clear Clear Glucose, ur, POC Negative Negative MG/DL Bilirubin, ur, POC Negative Negative, Small, Moderate, Large Ketones, ur, POC Negative Negative Specific Arroyo, POC 1.025 1.003 - 1.030 Blood, ur, POC 1+(A) Negative pH, ur, POC 6.0 5.0 - 8.0 Protein, ur, POC Negative Negative Urobilinogen, urine, POC 0.2 0.2 - 1.0 mg/dL Nitrite, ur, POC Negative Negative Leukocytes, ur, POC 1+(A) Negative Lot Number 0 Urine 08/20/2024 12:5 0 PM PRINTING PRESS MACHINIST Joshua Mondragon MD POINT OF CARE TEST O RDERABLES Final Result * Hepatitis panel, acute (02/26/2023 12:55 PM CDT) Hep A IgM Nonreactive Nonreactive [facility] Hep B core IgM Nonreactive Nonreactive [facility] Hep C Ab Nonreactive Nonreactive [facility] Comment:Antibodies to HCV no t detected. Does NOT exclude the possibility of recent exposure to HCV. Current interpretive data was last revised on 22 HepBsAg Nonreactive Nonreactive [facility] Blood 02/26/2023 12:5 5 PM CDT 02/26/2023 2:23 PM CDT us Daphne Vargas NP LAB MICROBIOLOGY - GENERA L ORDERABLES Final Result [facility] Department [place] [address] * Pap and High Risk HPV, reflex to Genotyping (09/20/2021 9:24 AM PRINTING PRESS MACHINIST) Thin prep (Pap test) 09/20/2021 9:24 AM PRINTING PRESS MACHINIST 09/20/2021 7:08 PM PRINTING PRESS MACHINIST Narrative PATHOLOGY [facility] - 09/26/2021 10:32 AM PRINTING PRESS MACHINIST EPIC results best viewed via link to PDF [facility] Hilary Hou [facility] [place] [address] Note to Patients: This report may contain [...] Gender: ??F : ??1990 (Age: 30) Address: ??[address] [place] [address] ??[address] Hospital #: ??[id number] Service: ??WADER BOOT TOP ASSEMBLER Location: ??[facility] Patient Type: ??[facility] Ref Lab Taken: ??09/20/2021 Received: ??09/20/2021 Accessioned: [...] 66. ??This HPV test was performed at [facility] in [place], [place] utilizing the Gen-Probe Aptima assay. 09/26/2021 [...] screening. The HPV test was performed by [facility], [address] [place] [address]. Report Images and scanned documents, if included only viewable in PDF version The performance characteristics of some immunohistochemical stains, in-situ hybridization and fluorescence in-situ hybridization tests and immunophenotyping by flow cytometry cited in this report (if any) were determined by the Surgical Pathology Department at [facility] as part of an ongoing senior quality control inspector program and in compliance with federally mandated [...] determined by the Surgical Pathology Department of [facility]. ??It has not been cleared or approved by the U. S. Food and Drug Administration. Lisset Mcclellan MD LAB CYTOLOGY ORDERABLES Final Result PATHOLOGY [facility] 3rd Floor [place], [place] [phone] from Last 3 Months or Most Recently Relevant to Health Maintenance Insurance [facility] [employer]ES EMPLOYEES EMPLOYEES EMPLOYEES Advance Directives For more information, please contact: [phone] * Full Code (Latest Code Status on File) Date Activated Date Inactivated Comments 05/06/2022 10:05 PM 05/09/2022 3:46 PM * Full Code Date Activated Date Inactivated Comments 11/16/2021 9:37 AM 11/17/2021 7:34 PM * Full Code Date Activated Date Inactivated Comments 07/02/2019 5:24 PM 07/03/2019 7:36 PM Care Teams Management Trainee Relationship Specialty Start Date End Date Cheryl Max MD [address] [facility] [address] [address] PCP - General Family Practice 12/05/23
== END 2024-08-18 01:21 | disposition home or self-care (01) ==
PROVIDERS: Emergency Provider Physician Assistant; PCP Family Medicine
DX: K52.9 Noninfective gastroenteritis and colitis, unspecified (principal); E86.0 Dehydration; N83.202 Unspecified ovarian cyst, left side; Z20.822 Contact with and (suspected) exposure to COVID-19; F98.8 Other specified behavioral and emotional disorders with onset usually occurring in childhood and adolescence; F41.9 Anxiety disorder, unspecified; Z79.899 Other long term (current) drug therapy
CPT/HCPCS: 36415; 76830; 80053; 83690; 83735; 85025; 87637; 96361; 96374; 96375; 99284; A9270; J2060; J2405; J2765; J7030

== ENCOUNTER 2025-03-16 08:01 | Outpatient (CLI) | payer OTHER, SELFPAY ==
--- OUTSIDE RECORDS SUMMARY | 2025-03-16 08:14 | XMS_ITS | Encounter Summary ---
Author Organization [employer] Address [address] [place] [address] Care Team Providers Care Doctor'S Assistant Name Role Phone Carmelo Lozada MD Primary Care Provider [phone] [phone] Encounter Details Date Type Department Care Team (Latest Contact Info) Description 12/14/2005 Inpatient Historical [facility] INPATIENT IN BED Guy Saldivar MD [address] [address] Obstruction by Bony Pelvis During Labor and Delivery, Delivered (Primary Dx) Social History Tobacco Use Types Packs/Day Years Used Date Smoking Tobacco: Never Assessed Comments Unknown Sex and Gender Information Value Date Recorded Sex Assigned at Not on file Legal Sex Female 3:22 AM GRAIN SACKER Gender Identity Not on file Sexual Orientation [...] ORDERABLES Final Res ult Performing Organization Address City/[facility] Co de Phone Number INTERFACE SYSTEM Refer [...] ORDERABLES Final Res ult Performing Organization Address City/[facility] de Phone Number INTERFACE SYSTEM Refer [...] ORDERABLES Final Res ult Performing Organization Address [facility] de Phone Number INTERFACE SYSTEM Refer [...] delivered documented in this encounter Care Teams Doctor'S Assistant Relationship Specialty Start Date End Date Carmelo Lozada MD [address] [place] [address] PCP - General Family Practice 04/03/19 documented as of this encounter
--- OUTSIDE RECORDS SUMMARY | 2025-03-16 08:14 | XMS_ITS | Encounter Summary ---
Author Organization [employer] Address [address] [place] [address] Care Team Providers Care Stunt Driver Name Role Phone Carmelo Lozada MD Primary Care Provider [phone] Encounter Details Date Type Department Care Team (Latest Contact Info) Description 09/13/2005 Outpatient Historical [facility] Francheska Emmanuel MD [address] [place] [phone] SUPERVIS NORMAL 1ST PREG (Primary Dx) Social History Tobacco Use Types Packs/Day Years Used Date Smoking Tobacco: Never Assessed Comments Unknown Sex and Gender Information Value Date Recorded Sex Assigned at Not on file Legal Sex Female 3:22 AM SYSTEM ANALYST Gender Identity Not on file Sexual Orientation Not on file documented as of this encounter Plan of Treatment Not on file documented as of this encounter Procedures Procedure Name Priority Date/Time Associated Diagnosis Comments GLUCOSE TOLERANCE 1 HR GESTATIONAL Routine 09/13/2005 10:42 AM SYSTEM ANALYST CBC WITH DIFFERENTIAL Routine 09/13/2005 10:42 AM SYSTEM ANALYST CBC WITH DIFFERENTIAL Routine 09/13/2005 10:42 AM SYSTEM ANALYST documented in this encounter Results * (ABNORMAL) CBC WITH DIFFERENTIAL (09/13/2005 10:42 AM SYSTEM ANALYST) NEUTROPHILS 71(H) 45 - 70 % INTERFAC [...] K/uL INTERFACE SYSTEM 09/13/2005 10:4 2 AM SYSTEM ANALYST Francheska Emmanuel MD HEMATOLOGY ORDERABLES Final R esult Performing Organization Address [facility] de Phone Number INTERFACE SYSTEM Refer to clinic/hospital department * (ABNORMAL) CBC WITH DIFFERENTIAL (09/13/2005 10:42 AM SYSTEM ANALYST) WBC 7.5 4.0 - 9.8 K/uL INTERFACE [...] fL INTERFACE SYSTEM 09/13/2005 10:4 2 AM SYSTEM ANALYST Francheska Emmanuel MD HEMATOLOGY ORDERABLES Final R esult Performing Organization Address [facility] de Phone Number INTERFACE SYSTEM Refer to clinic/hospital department * GLUCOSE TOLERANCE 1 HR GESTATIONAL (09/13/2005 10:42 AM SYSTEM ANALYST) GLUCOSE 1 HR OBSTETRIC 129 65 - 139 mg/dL INTERFACE SYSTEM 09/13/2005 10:4 2 AM SYSTEM ANALYST us Francheska Emmanuel MD CHEMISTRY ORDERABLES Final Re sult INTERFACE SYSTEM Refer to clinic/hospital department documented in this encounter Visit Diagnoses Diagnosis Supervision of normal first - Primary documented in this encounter Care Teams Stunt Driver Relationship Specialty Start Date End Date Carmelo Lozada MD [address] [place] [address] PCP - General Family Practice 04/03/19 documented as of this encounter
--- OUTSIDE RECORDS SUMMARY | 2025-03-16 08:14 | XMS_ITS | Encounter Summary ---
Author Organization [facility] Address [address] [place] [address] Care Team Providers Care Odd Job Worker Name Role Phone Carmelo Lozada MD Primary Care Provider [phone] Encounter Details Date Type Department Care Team (Late st Contact Info) Description 05/02/2005 Outpatient Historical [facility] [address] [place] [phone] Francheska Emmanuel MD [address] [place] [phone] Social History Tobacco Use Types Packs/Day Years Used Date Smoking Tobacco: Never Assessed Comments Unknown Sex and Gender Information Value Date Recorded Sex Assigned at Not on file Legal Sex Female 3:22 AM ACID DUMPER Gender Identity Not on file Sexual Orientation Not on file documented as of this encounter Plan of Treatment Not on file documented as of this encounter Visit Diagnoses Not on filedocumented in this encounter Care Teams Odd Job Worker Relationship Specialty Start Date End Date Carmelo Lozada MD [address] [place] [address] PCP - General Family Practice 04/03/19 documented as of this encounter
--- OUTSIDE RECORDS SUMMARY | 2025-03-16 08:14 | XMS_ITS | Encounter Summary ---
Author Organization [facility] Address [address] [place] [address] Care Team Providers Care Paramedic Rn Name Role Phone Carmelo Lozada MD Primary Care Provider [phone] Encounter Details Date Type Department Care Team (Late st Contact Info) Description 12/02/[address] [facility] [address] [place] [address] [address] [place] [address] Guy Saldivar MD [address] [place] [address] [address] [place] [address] Social History Tobacco Use Types Packs/Day Years Used Date Smoking Tobacco: Never Assessed Comments Unknown Sex and Gender Information Value Date Recorded Sex Assigned at Not on file Legal Sex Female 3:22 AM DECK WORKER Gender Identity Not on file Sexual Orientation Not on file documented as of this encounter Plan of Treatment Not on file documented as of this encounter Visit Diagnoses Not on filedocumented in this encounter Care Teams Paramedic Rn Relationship Specialty Start Date End Date Carmelo Lozada MD [address] [place] [address] PCP - General Family Practice 04/03/19 documented as of this encounter
--- OUTSIDE RECORDS SUMMARY | 2025-03-16 08:14 | XMS_ITS | Encounter Summary ---
Author Organization [facility] Address [address] [place] [address] Care Team Providers Care School Bus Driver Name Role Phone Carmelo Lozada MD Primary Care Provider [phone] Encounter Details Date Type Department Care Team (Late st Contact Info) Description 11/24/2005 Outpatient Historical [facility] [address] [facility] [address] [place] [address] Brayden Morrissey MD [address] [place] [address] [address] [place] [address] Social History Tobacco Use Types Packs/Day Years Used Date Smoking Tobacco: Never Assessed Comments Unknown Sex and Gender Information Value Date Recorded Sex Assigned at Not on file Legal Sex Female 3:22 AM CHANNEL MARKETING MANAGER Gender Identity Not on file Sexual Orientation Not on file documented as of this encounter Plan of Treatment Not on file documented as of this encounter Visit Diagnoses Not on filedocumented in this encounter Care Teams School Bus Driver Relationship Specialty Start Date End Date Carmelo Lozada MD [address] [place] [address] PCP - General Family Practice 04/03/19 documented as of this encounter
--- OUTSIDE RECORDS SUMMARY | 2025-03-16 08:14 | XMS_ITS | Encounter Summary ---
Author Organization [employer] Address [address] [place] [address] Care Team Providers Care Screener Perfumer Name Role Phone Carmelo Lozada MD Primary Care Provider [phone] Encounter Details Date Type Department Care Team (Latest Contact Info) Description 06/27/2005 Outpatient Historical [facility] Francheska Emmanuel MD [address] [place] [phone] SUPERVIS NORMAL 1ST PREG (Primary Dx) Social History Tobacco Use Types Packs/Day Years Used Date Smoking Tobacco: Never Assessed Comments Unknown Sex and Gender Information Value Date Recorded Sex Assigned at Not on file Legal Sex Female 3:22 AM MATERIALS PLANNING ANALYST Gender Identity Not on file Sexual Orientation Not on file documented as of this encounter Plan of Treatment Not on file documented as of this encounter Procedures Procedure Name Priority Date/Time Associated Diagnosis Comments MATERNAL SERUM TRIPLE SCREEN Routine 06/27/2005 9:21 AM MATERIALS PLANNING ANALYST documented in this encounter Results * MATERNAL SERUM TRIPLE SCREEN (06/27/2005 9:21 AM MATERIALS PLANNING ANALYST) RISK INTERP INTERFAC E SYSTEM Comment: SCREEN [...] NEURAL TUBE DEFECTS AND SOME CHROMOSOMAL ABNORMALITIES. IT SHOULD BE NOTED THAT NORMAL RESULTS CAN NEVER GUARANTEE THE OF A NORMAL BABY AND THAT 2 TO 3 PERCENT OF [place] HAVE SOME TYPE OF PHYSICAL OR MENTAL DEFECT, MANY OF WHICH ARE UNDETECTABLE THROUGH ANY KNOWN DIAGNOSTIC TECHNIQUE. See Result Comment TRIPLE TEST INTERP I NTERFACE SYSTEM Comment: THIS IS A SCREENING TEST, NOT A DIAGNOSTIC TEST. NO REAGENT SYSTEM ESTABLISHING THE RISK OF CHROMOSOME ABNORMALITIES DURING HAS BEEN APPROVED BY THE FDA. THIS RISK ASSESSMENT REPORT IS BASED IN PART ON DEMOGRAPHIC DATA PROVIDED BY THE ORDERING PHYSICIAN. PLEASE NOTIFY THE LABORATORY PROMPTLY IF ANY DATA ARE INCORRECT. FOR ASSISTANCE WITH RECALCULATIONS, PLEASE CALL YOUR LOCAL [facility]. FOR ASSISTANCE WITH INTERPRETATION OF THESE RESULTS, PLEASE CONTACT YOUR LOCAL [facility] GENETIC COUNSELOR OR CALL [phone]. INTERPRETIVE CUT-OFFS SCREEN POSITIVE FOR OPEN NTD: > OR = 2.50 ADJUSTED MOM > OR = 1.90 ADJUSTED MOM FOR INSULIN-DEPENDENT DIABETICS > OR = 4.00 ADJUSTED MOM FOR TWINS > OR = 4.50 ADJUSTED MOM FOR TRIPLETS SCREEN POSITIVE FOR DOWN SYNDROME:MSS3 DOWN SYNDROME RISK THAT EQUALS OR EXCEEDS 1 IN 270 SCREEN POSITIVE FOR TRISOMY 18:MSS3 TRISOMY 18 RISK THAT EQUALS OR EXCEEDS 1 IN 100 See [...] FACE SYSTEM Comment: [facility] [address] [place] [address] ASHLEY HYLTON MD FAMILY HISTORY NG INTER FACE SYSTEM LAST MENSTRUAL PERIOD 02/05/2005 INTERFACE SYSTEM MULTI GESTATION PREG NO INTERFACE SYSTEM OTHER RACE INFO NG INTE RFACE SYSTEM 06/27/2005 9:21 AM MATERIALS PLANNING ANALYST us Francheska Emmanuel MD CHEMISTRY ORDERABLES Final Re sult INTERFACE SYSTEM Refer to clinic/hospital department documented in this encounter Visit Diagnoses Diagnosis Supervision of normal first - Primary documented in this encounter Care Teams Screener Perfumer Relationship Specialty Start Date End Date Carmelo Lozada MD [address] [place] [address] PCP - General Family Practice 04/03/19 documented as of this encounter
--- OUTSIDE RECORDS SUMMARY | 2025-03-16 08:14 | XMS_ITS | Encounter Summary ---
Author Organization [employer] Address [address] [place] [address] Care Team Providers Care Early Childhood Associate Teacher Name Role Phone Carmelo Lozada MD Primary Care Provider [phone] Encounter Details Date Type Department Care Team (Latest Contact Info) Description 11/24/2005 Outpatient Historical [facility] NON-STRESS TEST AREA Guy Saldivar MD [address] [place] [address] Transient Hypertension of , Antepartum (Primary Dx) Social History Tobacco Use Types Packs/Day Years Used Date Smoking Tobacco: Never Assessed Comments Unknown Sex and Gender Information Value Date Recorded Sex Assigned at Not on file Legal Sex Female 3:22 AM CRM DYNAMICS DEVELOPER Gender Identity Not on file Sexual Orientation Not on file documented as of this encounter Plan of Treatment Not on file documented as of this encounter Visit Diagnoses Diagnosis Transient hypertension of , antepartum- Primary documented in this encounter Care Teams Early Childhood Associate Teacher Relationship Specialty Start Date End Date Carmelo Lozada MD [address] [place] [phone] PCP - General Family Practice 04/03/19 documented as of this encounter
--- OUTSIDE RECORDS SUMMARY | 2025-03-16 08:14 | XMS_ITS | Encounter Summary ---
Author Organization [facility] Address [address] [place] [address] Care Team Providers Care Feeder Operator Name Role Phone Carmelo Lozada MD Primary Care Provider [phone] Encounter Details Date Type Department Care Team (Late st Contact Info) Description 2005 Outpatient Historical [facility] [address] [facility] [address] [place] [address] Guy Saldivar MD [address] [place] [address] [address] [place] [address] Social History Tobacco Use Types Packs/Day Years Used Date Smoking Tobacco: Never Assessed Comments Unknown Sex and Gender Information Value Date Recorded Sex Assigned at Not on file Legal Sex Female 3:22 AM SUPERVISOR TESTING Gender Identity Not on file Sexual Orientation Not on file documented as of this encounter Plan of Treatment Not on file documented as of this encounter Visit Diagnoses Not on filedocumented in this encounter Care Teams Feeder Operator Relationship Specialty Start Date End Date Carmelo Lozada MD [address] [place] [address] PCP - General Family Practice 04/03/19 documented as of this encounter
--- OUTSIDE RECORDS SUMMARY | 2025-03-16 08:14 | XMS_ITS | Encounter Summary ---
Author Organization [facility] Address [address] [place] [address] Care Team Providers Care Physician Support Coordinator Name Role Phone Carmelo Lozada MD Primary Care Provider [phone] Encounter Details Date Type Department Care Team (Late st Contact Info) Description 12/15/2005 Outpatient Historical [facility] [address] [facility] [address] [place] [address] Guy Saldivar MD [address] [place] [address] [address] [place] [address] Social History Tobacco Use Types Packs/Day Years Used Date Smoking Tobacco: Never Assessed Comments Unknown Sex and Gender Information Value Date Recorded Sex Assigned at Not on file Legal Sex Female 3:22 AM COMBINATION WORKER Gender Identity Not on file Sexual Orientation Not on file documented as of this encounter Plan of Treatment Not on file documented as of this encounter Visit Diagnoses Not on filedocumented in this encounter Care Teams Physician Support Coordinator Relationship Specialty Start Date End Date Carmelo Lozada MD [address] [place] [address] PCP - General Family Practice 04/03/19 documented as of this encounter
--- OUTSIDE RECORDS SUMMARY | 2025-03-16 08:14 | XMS_ITS | Encounter Summary ---
Author Organization [facility] Address [address] [place] [address] Care Team Providers Care Personal Banking Representative Name Role Phone Carmelo Lozada MD Primary Care Provider [phone] Encounter Details Date Type Department Care Team (Latest Contact Info) Description 11/20/2005 Outpatient Historical [facility] Guy Saldivar MD [address] [place] [address] [address] [place] [address] Brayden Morrissey MD [address] [place] [address] Other Specified Complication, Antepartum (Primary Dx) Social History Tobacco Use Types Packs/Day Years Used Date Smoking Tobacco: Never Assessed Comments Unknown Sex and Gender Information Value Date Recorded Sex Assigned at Not on file Legal Sex Female 3:22 AM CONTINUOUS PROCESS MACHINE OPERATOR Gender Identity Not on file [...] antepartum documented in this encounter Care Teams Personal Banking Representative Relationship Specialty Start Date End Date Carmelo Lozada MD [address] [place] [address] PCP - General Family Practice 04/03/19 documented as of this encounter
--- OUTSIDE RECORDS SUMMARY | 2025-03-16 08:14 | XMS_ITS | Encounter Summary ---
Author Organization [facility] Address [address] [place] [address] Care Team Providers Care Ceramic Plater Name Role Phone Carmelo Lozada MD Primary Care Provider [phone] Encounter Details Date Type Department Care Team (Late st Contact Info) Description 11/08/2005 Outpatient Historical [facility] Women's Health Services [address] [facility] [address] [place] [address] Guy Saldivar MD [address] [place] [address] [address] [place] [address] Social History Tobacco Use Types Packs/Day Years Used Date Smoking Tobacco: Never Assessed Comments Unknown Sex and Gender Information Value Date Recorded Sex Assigned at Not on file Legal Sex Female 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
--- OUTSIDE RECORDS SUMMARY | 2025-03-16 08:14 | XMS_ITS | Encounter Summary ---
Author Organization [facility] Address 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
--- OUTSIDE RECORDS SUMMARY | 2025-03-16 08:14 | XMS_ITS | Clinical Summary ---
Author Organization [facility] Address [address] [place] [address] Care Team Providers Care Dry Cell And Battery Assembler Name Role Phone Cheryl Max MD Primary [...] Max dose 2/24 hours 9 tablet 3 9 Active multivitamin capsule Take 1 capsule by mouth every morning Active ibuprofen (ADVIL,MOTRIN) 600 mg tabletIndicatio ns:Pain Take 1 tablet (600 mg total) by mouth 3 (three) times a day as needed for pain 60 tablet 2 Active LORazepam (ATIVAN) 0.5 mg tabletIndicatio ns:anxiety Take 1 tablet (0.5 mg total) by mouth daily as needed for anxiety Take 30 minutes prior to procedure. 5 tablet 3 Active propranoloL (INDERAL) 20 mg tablet Take 1 tablet (20 mg total) by mouth 2 (two) times a day 60 tablet 11 4 Active ubrogepant (Ubrelvy) 50 mg tabletIndicatio ns:Headache disorder Take 1 tablet (50 mg total) by mouth as needed for migraine May repeat dose once in 2 hours if no relief. Do not exceed 2 doses in 24 hours. 10 tablet 2 4 Active erenumab-aooe (Aimovig Autoinjector) 140 mg/mL auto-injector INJECT 1 ML (140 MG TOTAL) UNDER THE SKIN EVERY 30 (THIRTY) DAYS 90 DAY SUPPLY 3 mL 3 5 Active dextroamphetami ne-amphetamine XR (ADDERALL XR) 5 mg 24 hr capsule Take 1 capsule (5 mg total) by mouth every morning 5 Active busPIRone (BUSPAR) 5 mg tablet Take 1 tablet (5 mg total) by mouth 3 (three) times a day 5 Active metoclopramide (REGLAN) 10 mg tablet TAKE 1 TABLET ORALLY EVERY 6 HOURS NEEDED FOR NAUSEA AND VOMITING 5 Active FLUoxetine 10 mg capsule 5 Active fluconazole (DIFLUCAN) 150 mg tablet TAKE 1 TABLET BY MOUTH ONCE FOR 1 DOSE REPEAT IN 7 DAYS IF SYMPTOMS PERSIST. 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 This is a condition in which neurologic [...] ask your primary doctor or contact the [facility] ([phone]). - Contact my office in 2 months [...] includes, below, the line Ambulatory referral to Neurology. This statement is included as a mandatory component of the note template that I do not have the ability to remove. This statement has no clinical significance. I am NOT ordering a referral to Neurology. 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 Overweight (BMI 25.0-29.9) 07/02/2019 Lisfranc dislocation, left, subsequent encounter 12/13/2018 Headache disorder 08/04/2018 Women's annual routine gynecological examination 04/26/2018 Overview (04/26/2018): Added automatically from request for surgery [id number] Palpitations 04/10/2018 ADHD (attention deficit hyperactivity disorder) 10/01/2012 Ringworm 10/01/2012 Anxiety 09/09/2012 Asthma 09/11/2007 Family history of migraine headaches 09/11/2007 Resolved Problems Problem Noted Date Diagnosed Date Resolved Date Dizziness 07/02/2019 07/03/2019 Neutrophilic leukocytosis 07/02/2019 Post-operative state 05/28/2018 03/02/2 023 Encounter for contraceptive management 08/04/2015 02/07/2024 Transient hypertension of pr egnancy, antepartum 10/01/2012 02/07/2024 Abnormal finding on antenata l screening of mother 05/02/2012 02/07/2024 08/07/2011 02/07/2024 Encounters Date Type Department Care Team Description 02/20/2025 Telephone [facility] Surgery [address] [place] [address] Mary Chakraborty 02/12/2025 Telephone [facility] Obstetrics and Gynecology [address] [facility] 7th Floor [address] [place] [address] Ronak Norwood RN Vaginitis/Bacterial Vaginosis from Last 3 Months Immunizations Immunization Administration Dates Next Due Hep A, Adult [...] on file Legal Sex Female 10:49 PM TRAVEL TICKETING REVIEWER Gender Identity Not on file Sexual Orientation Not on file 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 Not on file Not [...] Sign Reading Time Taken Comments Blood Pressure 113/80 09/30/2024 7:19 AM TRAVEL TICKETING REVIEWER Pulse 67 09/30/2024 7:19 AM TRAVEL TICKETING REVIEWER Temperature 36.9 C (98.4 F) 03/17/2024 9:24 AM CDT Respiratory Rate 16 04/29/2024 2:39 PM CDT Oxygen Saturation 98% 04/29/2024 2:39 PM CDT Inhaled Oxygen Concentration - - Weight 58.7 kg (129 lb 4.8 oz) 09/30/2024 7:19 A M TRAVEL TICKETING REVIEWER Height 160 cm (5' 2.99) 09/30/2024 7:19 AM TRAVEL TICKETING REVIEWER Body Mass Index 22.91 09/30/2024 7:19 AM TRAVEL TICKETING REVIEWER Plan of Treatment Health Maintenance Due Date Last Done Comments Depression Screening 1990 DTaP/Tdap/Td Vaccine (1 - Tdap) 11/02/1999 Varicella Vaccines (1 of 2 - 13+ 2-dose series) 2001 Pneumococcal vaccine <65 (1 of 2 - PCV) 11/02/2007 HPV Vaccines (1 - 3-dose SCD M series) 11/02/2015 Cervical Cancer Screening 09/20/2022 09/20/2021 Covid-19 Vaccine (3 - 2023-2 5 season) 2024 03/21/2021, 02/28/2021 Regular Well Visit/Exam 18-64 02/06/2025, 09/28/2022, 09/20/2021 Influenza Vaccine (#1) 2025 3, 09/05/2022, 07/02/2019 Hepatitis B Screening Completed 02/26/2023 , 04/25/2016, 01/24/2016, Additional history exists Hepatitis C Screening Completed 02/26/2023 Procedures Procedure Name Priority Date/Time Associated Diagnosis Comments HEPATITIS PANEL, ACUTE Routine 02/26/2023 12:55 PM CDT PAP AND HIGH RISK HPV, REFLEX TO GENOTYPING Routine 09/20/2021 9:24 AM TRAVEL TICKETING REVIEWER Well woman exam with routine gynecological exam from Last 3 Months or Most Recently Relevant to Health Maintenance Results * Hepatitis panel, acute (02/26/2023 12:55 PM CDT) Hep A IgM Nonreactive Nonreactive [facility] Hep B core IgM Nonreactive Nonreactive [facility] Hep C Ab Nonreactive Nonreactive [facility] Comment:Antibodies to HCV no t detected. Does NOT exclude the possibility of recent exposure to HCV. Current interpretive data was last revised on 22 HepBsAg Nonreactive Nonreactive [facility] Blood 02/26/2023 12:5 5 PM CDT 02/26/2023 2:23 PM CDT Daphne Vargas NP LAB MICROBIOLOGY - GENERA L ORDERABLES Final Result [facility] Department [place] [address] * Pap and High Risk HPV, reflex to Genotyping (09/20/2021 9:24 AM TRAVEL TICKETING REVIEWER) Thin prep (Pap test) 09/20/2021 9:24 AM TRAVEL TICKETING REVIEWER 09/20/2021 7:08 PM TRAVEL TICKETING REVIEWER Narrative PATHOLOGY [facility] - 09/26/2021 10:32 AM TRAVEL TICKETING REVIEWER EPIC results best viewed via link to PDF [facility] Hilary Hou Laboratory of Surgical Pathology [facility], [place] [address] Note to Patients: This report may contain [...] the details. CYTOPATHOLOGY REPORT FINAL Patient Name: PHYLICIA BELL Gender: F : 1990 (Age: 30) Address: [address] [place] [address] Hospital #: [id number] Service: UNIVERSITY TUTOR Location: [facility] Patient Type: [facility] Ref Lab Taken: 09/20/2021 Received: 09/20/2021 Accessioned: 09/21/2021 Reported: 09/26/2021 Physician(s): Lisset Mcclellan M.D. FINAL INTERPRETATION SOURCE OF SPECIMEN: Liquid based Thin Prep pap with HPV STATEMENT OF ADEQUACY: - Satisfactory for evaluation - Endocervical cells/transformation zone sample absent GENERAL CATEGORY: - Negative for squamous intraepithelial lesion or malignancy Comments HPV Result: NEGATIVE for high risk types of Human Papilloma Virus (HPV) RNA This probe detects the presence of HPV types: 16, 18, 31, 33, 35, 39, 45, 51, 52, 56, 58, 59, 66 and 68. This HPV test was performed at [facility] in [place], [place] utilizing the Gen-Probe Aptima assay. freya/09/26/2021 10:32 AKIRA Stokes(ASCP) Report Electronically Reviewed and [...] biopsy results as indicated. Gross Description A. Liquid based Thin Prep pap with HPV: Cervical/vaginal - Screening ThinPrep Clinical Diagnosis and History Last Menstrual Period: unknown The patient is a 30 year old female with screening. The HPV test was performed by [facility], [address] [place] [address]. Report Images and scanned documents, if included only viewable in PDF version The performance characteristics of some immunohistochemical stains, in-situ hybridization and fluorescence in-situ hybridization tests and immunophenotyping by flow cytometry cited in this report (if any) were determined by the Surgical Pathology Department at [facility] as part of an ongoing microbiology quality control technician program and in compliance with federally mandated regulations drawn from the Clinical Laboratory Improvement Act of 1988 (CLIA '88). Some of these tests rely on the use of analyte specific reagents and are subject to specific labeling requirements by the US Food and Drug Administration. Such diagnostic tests may only be performed in a facility that is certified by the Department of Health and Human Services as a high complexity laboratory under CLIA '88. The FDA has determined that such clearance or approval is not necessary. This test is used for clinical purposes. It should not be regarded as investigational or for research. Nevertheless, federal rules concerning the medical use of analyte specific reagents require that the following disclaimer be attached to the report: This test was developed and its performance characteristics determined by the Surgical Pathology Department of [facility]. It has not been cleared or approved by the U. S. Food and Drug Administration. Lisset Mcclellan MD LAB CYTOLOGY ORDERABLES Final Result PATHOLOGY [facility] 3rd Floor [place], [place] [phone] from Last 3 Months or Most Recently Relevant to Health Maintenance Insurance [employer] Advance Directives For more information, please contact: [phone] * Full Code (Latest Code Status on File) Date Activated Date Inactivated Comments 05/06/2022 10:05 PM 05/09/2022 3:46 PM * Full Code Date Activated Date Inactivated Comments 11/16/2021 9:37 AM 11/17/2021 7:34 PM * Full Code Date Activated Date Inactivated Comments 07/02/2019 5:24 PM 07/03/2019 7:36 PM Care Teams Dry Cell And Battery Assembler Relationship Specialty Start Date End Date Cheryl Max MD [address] [place] [address] [address] PCP - General Family Practice 12/05/23
--- OUTSIDE RECORDS SUMMARY | 2025-03-16 08:14 | XMS_ITS | Encounter Summary ---
Author Organization [facility] Address [address] [place] [address] Care Team Providers Care Cleaning Manager Name Role Phone Carmelo Lozada MD Primary Care Provider [phone] Encounter Details Date Type Department Care Team (Late st Contact Info) Description 12/15/2005 Outpatient Historical [facility] [address] [facility] [address] [place] [address] Brayden Morrissey MD [address] [place] [address] [address] [place] [address] Social History Tobacco Use Types Packs/Day Years Used Date Smoking Tobacco: Never Assessed Comments Unknown Sex and Gender Information Value Date Recorded Sex Assigned at Not on file Legal Sex Female 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
--- OUTSIDE RECORDS SUMMARY | 2025-03-16 08:14 | XMS_ITS | Encounter Summary ---
Author Organization [facility] Address [address] [place] [address] Phone Care Team Providers Care Bulk Sealer Name Role Phone Jesus Cross MD Primary Care Provider [phone] No, Physician Primary Care Provider [phone] Yoselyn Prabhakar MD Primary Care Provider Daphne Pastor NP Primary Care Provider [phone] Yoselyn Prabhakar MD Primary Care Provider Yoselyn Prabhakar MD Primary Care Provider Yoselyn Prabhakar MD Primary Care Provider Cheryl Max MD Primary Care Provider Encounter Details Date Type Department Care Team (Late st Contact Info) Description 04/30/2018 Documentation [facility] Obstetrics and Gynecology [address] [place] 1st [address] [place] [address] Lisset Mcclellan MD [address] [facility] [phone] [place] [address] Social History Tobacco Use Types Packs/Day Years Used Date Smoking Tobacco: Never Smokeless Tobacco: Never Alcohol Use Standard Drinks/Week Comments No 0 (1 standard drink = 0.6 oz pur e alcohol) Comments No Sex and Gender Information Value Date Recorded Sex Assigned at Not on file Legal Sex Female 10:49 PM 3D MODELER Gender Identity Not on file Sexual Orientation Not on file 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 Not on file Not on file N ot on file documented as of this encounter Plan of Treatment Not on file documented as of this encounter Visit Diagnoses Not on filedocumented in this encounter Additional Health Concerns Infection Onset Date Last Indicated Resolved Time COVID19 08/18/2021 08/18/2021 08/28/2021 3:05 AM 3D MODELER COVID: Recovered Comment:Added based on recent COVID infection. 08/28/2021 08/28/2021 12/26/2021 3:05 AM C DT documented as of this encounter Care Teams Bulk Sealer Relationship Specialty Start Date End Date Jesus Cross MD [address] [address] PCP - General Neurology 04/30/18 05/05/18 No, Physician PCP - General 05/06/18 11/15/19 Yoselyn Prabhakar MD PCP - General Family Medicine 11/16/19 08/25/21 Daphne Pastor NP PCP - General Nurse Practitioner 08/26/21 09/04/21 Yoselyn Prabhakar MD [address] [place] [address] PCP - General 09/05/21 11/16/21 Yoselyn Prabhakar MD [address] [place] [address] PCP - General 11/17/21 11/17/21 Yoselyn Prabhakar MD [address] [place] [address] PCP - General Family Medicine 03/15/23 03/27/23 Cheryl Max MD [facility] [address] [address] PCP - General Family Practice 12/05/23 documented as of this encounter
--- OUTSIDE RECORDS SUMMARY | 2025-03-16 08:14 | XMS_ITS | Clinical Summary ---
Author Organization [facility] Address [address] [place] [address] Phone Care Team Providers Care Information Systems Architect Name Role Phone Carmelo Lozada MD Primary [...] on file Legal Sex Female 3:22 AM FOREIGN STUDENT ADVISER Gender Identity Not on file Sexual Orientation Not on file Last Filed Vital Signs Vital Sign Reading Time Taken Comments Blood Pressure 142/76 04/08/2019 1:07 PM CDT Pulse 59 04/08/2019 1:07 PM CDT Temperature 36.1 C (97 F) 04/08/2019 12:24 PM CDT Respiratory Rate 18 04/08/2019 1:07 PM CDT Oxygen Saturation 100% 04/08/2019 1:07 PM CDT Inhaled Oxygen Concentration - - Weight 78.6 kg (173 lb 4 oz) 04/08/2019 6:11 AM CDT Height 160 cm (5' 3) 04/08/2019 6:11 AM CDT Body Mass Index 30.69 04/08/2019 6:11 AM CDT Plan of Treatment Health Maintenance Due Date Last Done Comments HPV VACCINES (1 - 3-dose series) 11/02/2003 DTAP/TDAP/TD VACCINES (1 - Tdap) 11/02/2007 HEPATITIS B VACCINES (1 of 3 - 19+ 3-dose series) 11/2007 HPV/Cotest (21-29) 2009 CERVICAL CANCER SCREENING 2018 HPV/Cotest (30-65) 2018 PAP SMEAR 2018 INFLUENZA VACCINE (#1) 2025 06/28/2021 Medical Devices Implanted Type Area Manager Deli Device Identifier Shelf Expiration Date Model / Serial / Lot Wire K Blnt Trocar [id number] - [id number] Implanted:Qty: 1 on 04/08/2019 by Guy Lozano Jr., MD at [facility] Left: Ankle [employer] [id number] / / Description:transferred from supplies Screw Mike 2.7x22m Implanted:Qty: 2 on 04/08/2019 by Guy Lozano Jr., MD at [facility] Left: Ankle [id number] / / Description:item add c.s load [id number] date Screw Mike 2.7x24mm Implanted:Qty: 2 on 04/08/2019 by Guy Lozano Jr., MD at [facility] Left: Ankle [id number] / / Description:item add c.s load [id number] date Screw Mike 2.7 X 28mm Implanted:Qty: 2 on 04/08/2019 by Guy Lozano Jr., MD at [facility] Left: Ankle [id number] / / Description:item add c.s load [id number] date Screw Mike 2.7x30mm Implanted:Qty: 1 on 04/08/2019 by Guy Lozano Jr., MD at [facility] Left: Ankle [id number] / / Description:item add c.s load [id number] date Screw Mike 3.5x20mm Implanted:Qty: 1 on 04/08/2019 by Guy Lozano Jr., MD at [facility] Left: Ankle [id number] / / Description:item add c.s load [id number] date Allomatrix 3cc Implanted:Qty: 1 on 04/08/2019 by Guy Lozano Jr., MD at [facility] Left: Ankle 10/06/2022 [id number] / / [id number] Screw 4.0x32mm Implanted:Qty: 1 on 04/08/2019 by Guy Lozano Jr., MD at [facility] Left: Ankle [id number] / / Description:item add c.s load [id number] date Plate U Sm Lt Implanted:Qty: 1 on 04/08/2019 by Guy Lozano Jr., MD at [facility] Left: Ankle [id number] / / Description:item add c.s load [id number] date REQ#[id number] T Plate Lt Implanted:Qty: 1 on 04/08/2019 by Guy Lozano Jr., MD at [facility] Left: Ankle [id number] / / Description:item add c.s load [id number] date Mike Screw 2.7x14mm Implanted:Qty: 1 on 04/08/2019 by Guy Lozano Jr., MD at [facility] Left: Ankle [id number] / / Description:item add c.s load [id number] date Screw Mike 2.7x16mm Implanted:Qty: 1 on 04/08/2019 by Guy Lozano Jr., MD at [facility] Left: Ankle [id number] / / Description:item add c.s load [id number] date Screw Mike 2.7x18mm Implanted:Qty: 1 on 04/08/2019 by Guy Lozano Jr., MD at [facility] Left: Ankle [id number] / / Description:item add c.s load [id number] date Screw Mike 2.7x20mm Implanted:Qty: 1 on 04/08/2019 by Guy Lozano Jr., MD at [facility] Left: Ankle [id number] / / Description:item add c.s load [id number] date Insurance BCBS BLUE PREFERRED RX PR[employer]ER[employer] Commercial RX [employer] Express Advance Directives For more information, please contact: [phone] * Full Code (Latest Code Status on File) Date Activated Date Inactivated Comments 04/08/2019 6:52 AM 04/08/2019 3:47 PM Care Teams Information Systems Architect Relationship Specialty Start Date End Date Carmelo Lozada MD [address] [place] [address] PCP - General Family Practice 04/03/19
--- OUTSIDE RECORDS SUMMARY | 2025-03-16 08:14 | XMS_ITS | Encounter Summary ---
Author Organization [facility] Address [address] [place] [address] Care Team Providers Care Electrotherapist Name Role Phone Carmelo Lozada MD Primary Care Provider +1 [phone] Encounter Details Date Type Department Care Team (Late st Contact Info) Description 05/02/2005 Outpatient Historical [facility] Francheska Emmanuel MD [address] [address] SUPERVIS NORMAL 1ST PREG (Primary Dx) Social History Tobacco Use Types Packs/Day Years Used Date Smoking Tobacco: Never Assessed Comments Unknown Sex and Gender Information Value Date Recorded Sex Assigned at Not on file Legal Sex Female 3:22 AM TIER IN Gender Identity Not on file Sexual Orientation Not on file documented as of this encounter Plan of Treatment Not on file documented as of this encounter Visit Diagnoses Diagnosis Supervision of normal first - Primary documented in this encounter Care Teams Electrotherapist Relationship Specialty Start Date End Date Carmelo Lozada MD [address] [place] [phone] PCP - General Family Practice 04/03/19 documented as of this encounter
--- OUTSIDE RECORDS SUMMARY | 2025-03-16 08:14 | XMS_ITS | Encounter Summary ---
Author Organization [facility] Address [address] [place] [address] Care Team Providers Care Mussel Opener Name Role Phone Carmelo Lozada MD Primary Care Provider +1 [phone] Encounter Details Date Type Department Care Team (Late st Contact Info) Description 11/29/2005 Outpatient Historical [facility] [address] [facility] [address] [place] [address] Brayden Morrissey MD [address] [place] [address] [address] [place] [address] Social History Tobacco Use Types Packs/Day Years Used Date Smoking Tobacco: Never Assessed Comments Unknown Sex and Gender Information Value Date Recorded Sex Assigned at Not on file Legal Sex Female 3:22 AM PROMOTIONAL MARKETING ANALYST Gender Identity Not on file Sexual Orientation Not on file documented as of this encounter Plan of Treatment Not on file documented as of this encounter Visit Diagnoses Not on filedocumented in this encounter Care Teams Mussel Opener Relationship Specialty Start Date End Date Carmelo Lozada MD [address] [place] [address] PCP - General Family Practice 04/03/19 documented as of this encounter
--- OUTSIDE RECORDS SUMMARY | 2025-03-16 08:14 | XMS_ITS | Encounter Summary ---
Author Organization [facility] Address [address] [place] [address] Care Team Providers Care Monument Stonecutter Name Role Phone Carmelo Lozada MD Primary Care Provider [phone] [phone] Encounter Details Date Type Department Care Team (Latest Contact Info) Description 05/12/2005 Outpatient Historical [facility] Francheska Emmanuel MD [address] [address] SUPERVIS NORMAL 1ST PREG (Primary Dx) Social History Tobacco Use Types Packs/Day Years Used Date Smoking Tobacco: Never Assessed Comments Unknown Sex and Gender Information Value Date Recorded Sex Assigned at Not on file Legal Sex Female 3:22 AM PUNCHBOARD ASSEMBLER Gender Identity Not on file Sexual Orientation Not on file documented as of this encounter Plan of Treatment Not on file documented as of this encounter Visit Diagnoses Diagnosis Supervision of normal first - Primary documented in this encounter Care Teams Monument Stonecutter Relationship Specialty Start Date End Date Carmelo Lozada MD [address] [place] [address] PCP - General Family Practice 04/03/19 documented as of this encounter
--- OUTSIDE RECORDS SUMMARY | 2025-03-16 08:14 | XMS_ITS | Encounter Summary ---
Author Organization [facility] Address [address] [place] [address] Care Team Providers Care Press Setter Name Role Phone Carmelo Lozada MD Primary Care Provider [phone] Encounter Details Date Type Department Care Team (Late st Contact Info) Description 11/20/2005 Outpatient Historical [facility] Services [address] [facility] [address] [place] [address] Brayden Morrissey MD [address] [place] [address] [address] [place] [address] Social History Tobacco Use Types Packs/Day Years Used Date Smoking Tobacco: Never Assessed Comments Unknown Sex and Gender Information Value Date Recorded Sex Assigned at Not on file Legal Sex Female 3:22 AM PAINT GRINDER Gender Identity Not on file Sexual Orientation Not on file documented as of this encounter Plan of Treatment Not on file documented as of this encounter Visit Diagnoses Not on filedocumented in this encounter Care Teams Press Setter Relationship Specialty Start Date End Date Carmelo Lozada MD [address] [place] [address] PCP - General Family Practice 04/03/19 documented as of this encounter
--- OUTSIDE RECORDS SUMMARY | 2025-03-16 08:14 | XMS_ITS | Encounter Summary ---
Author Organization [facility] Address [address] [place] [address] Care Team Providers Care Energy Crop Farmer Name Role Phone Carmelo Lozada MD Primary Care Provider [phone] Encounter Details Date Type Department Care Team (Late st Contact Info) Description 10/19/2005 Outpatient Historical [facility] Francheska Emmanuel MD [address] [address] Unspecified Antepartum Hemorrhage, Antepartum (Primary Dx) Social History Tobacco Use Types Packs/Day Years Used Date Smoking Tobacco: Never Assessed Comments Unknown Sex and Gender Information Value Date Recorded Sex Assigned at Not on file Legal Sex Female 3:22 AM PAINTER AND GRADER CORK Gender Identity Not on file Sexual Orientation Not on file documented as of this encounter Plan of Treatment Not on file documented as of this encounter Visit Diagnoses Diagnosis Unspecified antepartum hemorrhage, antepartum- Primary documented in this encounter Care Teams Energy Crop Farmer Relationship Specialty Start Date End Date Carmelo Lozada MD [address] [place] [address] PCP - General Family Practice 04/03/19 documented as of this encounter
--- OUTSIDE RECORDS SUMMARY | 2025-03-16 08:14 | XMS_ITS | Encounter Summary ---
Author Organization [facility] Address [address] [place] [address] Care Team Providers Care Therapist Speech Name Role Phone Carmelo Lozada MD Primary Care Provider [phone] [phone] Encounter Details Date Type Department Care Team (Late st Contact Info) Description 11/22/2005 Outpatient Historical [facility] Women's Health Services [address] [facility] [address] [place] [address] uGy Saldivar MD [address] [place] [address] [address] [place] [address] Social History Tobacco Use Types Packs/Day Years Used Date Smoking Tobacco: Never Assessed Comments Unknown Sex and Gender Information Value Date Recorded Sex Assigned at Not on file Legal Sex Female 3:22 AM PATTERN GRADER Gender Identity Not on file Sexual Orientation Not on file documented as of this encounter Plan of Treatment Not on file documented as of this encounter Visit Diagnoses Not on filedocumented in this encounter Care Teams Therapist Speech Relationship Specialty Start Date End Date Carmelo Lozada MD [address] [place] [address] PCP - General Family Practice 04/03/19 documented as of this encounter
--- OUTSIDE RECORDS SUMMARY | 2025-03-16 08:14 | XMS_ITS | Encounter Summary ---
Author Organization [employer] [facility] Address [address] [place] [address] Care Team Providers Care Guidance Adviser Name Role Phone Carmelo Lozada MD Primary Care Provider [phone] [phone] Encounter Details Date Type Department Care Team (Late st Contact Info) Description 12/02/2005 Outpatient Historical [facility] Guy Saldivar MD [address] [place] [address] Social History Tobacco Use Types Packs/Day Years Used Date Smoking Tobacco: Never Assessed Comments Unknown Sex and Gender Information Value Date Recorded Sex Assigned at Not on file Legal Sex Female 3:22 AM GASOLINE CATALYST OPERATOR Gender Identity Not on file Sexual Orientation Not on file documented as of this encounter Plan of Treatment Not on file documented as of this encounter Visit Diagnoses Not on filedocumented in this encounter Care Teams Guidance Adviser Relationship Specialty Start Date End Date Carmelo Lozada MD [address] [place] [address] PCP - General Family Practice 04/03/19 documented as of this encounter
--- OUTSIDE RECORDS SUMMARY | 2025-03-16 08:14 | XMS_ITS | Encounter Summary ---
Author Organization [facility] Address [address] [place] [address] Care Team Providers Care Cassandra Consultant Name Role Phone Carmelo Lozada MD Primary Care Provider [phone] Encounter Details Date Type Department Care Team (Latest Contact Info) Description 12/26/2005 Inpatient Historical [facility] Cecile Dorado MD [address] [facility] [place] [address] [place], [place] [id number] OB Surg Complication NEC-Postpar (Primary Dx) Social History Tobacco Use Types Packs/Day Years Used Date Smoking Tobacco: Never Assessed Comments Unknown Sex and Gender Information Value Date Recorded Sex Assigned at Not on file Legal Sex Female 3:22 AM COMMUNITY HEALTH NURSE STAFF Gender Identity Not on file Sexual Orientation [...] ORDERABLES Final Resu lt Performing Organization Address [facility] Phone Number INTERFACE SYSTEM Refer to [...] ORDERABLES Final Resul t Performing Organization Address [facility] Phone Number INTERFACE SYSTEM Refer to [...] ORDERABLES Final R esult Performing Organization Address [facility] Phone Number INTERFACE SYSTEM Refer to clinic/hospital department * CBC WITH DIFFERENTIAL (12/26/2005 12:04 PM CDT) NRBC 0 <=0 /100 WBC INTERFACE SYSTEM 12/26/2005 12:0 4 PM CDT us Dusty Downing MD HEMATOLOGY ORDERABLES Final R esult Performing Organization Address [facility] Phone Number INTERFACE SYSTEM Refer to [...] ORDERABLES Final R esult Performing Organization Address [facility] Phone Number INTERFACE SYSTEM Refer to [...] Primary documented in this encounter Care Teams Cassandra Consultant Relationship Specialty Start Date End Date Carmelo Lozada MD [address] [place] [address] PCP - General Family Practice 04/03/19 documented as of this encounter
--- OUTSIDE RECORDS SUMMARY | 2025-03-16 08:14 | XMS_ITS | Encounter Summary ---
Author Organization [facility] Address [address] [place] [address] Care Team Providers Care Baseball Scout Name Role Phone Carmelo Lozada MD Primary Care Provider [phone] Encounter Details Date Type Department Care Team (Late st Contact Info) Description 07/20/2005 Outpatient Historical [facility] [address] [place] [address] Francheska Emmanuel MD [address] [place] [address] Social History Tobacco Use Types Packs/Day Years Used Date Smoking Tobacco: Never Assessed Comments Unknown Sex and Gender Information Value Date Recorded Sex Assigned at Not on file Legal Sex Female 3:22 AM SPA MANAGER Gender Identity Not on file Sexual Orientation Not on file documented as of this encounter Plan of Treatment Not on file documented as of this encounter Visit Diagnoses Not on filedocumented in this encounter Care Teams Baseball Scout Relationship Specialty Start Date End Date Carmelo Lozada MD [address] [place] [address] PCP - General Family Practice 04/03/19 documented as of this encounter
--- OUTSIDE RECORDS SUMMARY | 2025-03-16 08:14 | XMS_ITS | Encounter Summary ---
Author Organization [facility] Address [address] [place] [address] Care Team Providers Care Piano Builder Name Role Phone Carmelo Lozada MD Primary Care Provider [phone] Encounter Details Date Type Department Care Team (Late st Contact Info) Description 09/12/2005 Outpatient Historical [facility] [address] [place] [address] Francheska Emmanuel MD [address] [place] [address] Social History Tobacco Use Types Packs/Day Years Used Date Smoking Tobacco: Never Assessed Comments Unknown Sex and Gender Information Value Date Recorded Sex Assigned at Not on file Legal Sex Female 3:22 AM RADIO AERIAL INSTALLER Gender Identity Not on file Sexual Orientation Not on file documented as of this encounter Plan of Treatment Not on file documented as of this encounter Visit Diagnoses Not on filedocumented in this encounter Care Teams Piano Builder Relationship Specialty Start Date End Date Carmelo Lozada MD [address] [place] [address] PCP - General Family Practice 04/03/19 documented as of this encounter
--- OUTSIDE RECORDS SUMMARY | 2025-03-16 08:14 | XMS_ITS | Encounter Summary ---
Author Organization [facility] Address [address] [place] [address] Care Team Providers Care Manufactured Buildings Repairer Name Role Phone Carmelo Lozada MD Primary Care Provider [phone] Encounter Details Date Type Department Care Team (Latest Contact Info) Description 05/02/2005 Outpatient Historical [facility] Francheska Emmanuel MD [address] [place] [phone] SUPERVIS NORMAL 1ST PREG (Primary Dx) Social History Tobacco Use Types Packs/Day Years Used Date Smoking Tobacco: Never Assessed Comments Unknown Sex and Gender Information Value Date Recorded Sex Assigned at Not on file Legal Sex Female 3:22 AM COMMUNICATIONS ADMINISTRATOR Gender Identity Not on file Sexual Orientation [...] received wi thout a chain of custody. The results should be used only for medical purposes. A confirmation is recommended for all presumptive positive results. A negative result indicates the analyte, if present, is below the screening threshold. Drug Ref. Range Screening Threshold Amphetamines Negative 500 ng/mL Barbiturates Negative 200 ng/mL Benzodiazepines Negative 100 ng/mL Cannabinoids Negative 50 ng/mL Cocaine Metabolite Negative 300 ng/mL Opiate Negative 300 ng/mL Phencyclidine Negative 25 ng/mL AMPHETAMINE QUAL, URINE Negative INTERFACE SYSTEM BARBITURATE QUAL, URINE Negative INTERFACE SYSTEM BENZODIAZEPINE QUAL, URINE Negative INTERFACE SYSTEM CANNABINOIDS QUAL, URINE Negative INTERFACE SYSTEM COCAINE QUAL URINE Negative I NTERFACE SYSTEM OPIATE QUAL, URINE Negative I NTERFACE SYSTEM PCP QUAL, URINE Negative INTE RFACE SYSTEM 05/02/2005 10:0 1 AM CDT Francheska Emmanuel MD URINE ORDERABLES Final Result Performing Organization Address [facility] Phone Number INTERFACE SYSTEM Refer to clinic/hospital [...] ORDERABLES Final R esult Performing Organization Address [facility] Phone Number INTERFACE SYSTEM Refer to clinic/hospital department * TSH REFLEXIVE (05/02/2005 10:01 AM CDT) TSH 1.24 0.27 - 4.20 uU/mL INTERFACE SYSTEM 05/02/2005 10:0 1 AM CDT Francheska Emmanuel MD CHEMISTRY ORDERABLES Final Re sult Performing Organization Address [facility] Phone Number INTERFACE SYSTEM Refer to clinic/hospital department * HEPATITIS B SURFACE ANTIGEN (05/02/2005 10:01 AM CDT) HEPATITIS B SURFACE AG NON-REACT JANELLE NON-REACT JANELLE INTERFACE SYSTEM Comment: Lab test performed by: [id number] [id number] ASHLEY HYLTON MD 05/02/2005 10:0 1 AM CDT Francheska Emmanuel MD CHEMISTRY ORDERABLES Final Re sult Performing Organization Address [facility] Phone Number INTERFACE SYSTEM Refer to clinic/hospital department * RUBELLA IGG (05/02/2005 10:01 AM CDT) RUBELLA IGG <0.91 EIA Value INTERFAC E SYSTEM Comment: EIA VALUE EXPLANATION OF TEST RESULTS --------- <0.91 NEGATIVE - NO RUBELLA IGG ANTIBODY DETECTED. 0.91 - 1.09 EQUIVOCAL > OR = 1.10 POSITIVE - RUBELLA IGG ANTIBODY DETECTED. THE PRESENCE OF RUBELLA IGG ANTIBODY SUGGESTS IMMUNIZATION OR PAST OR CURRENT INFECTION WITH RUBELLA VIRUS. Lab test performed by: [email or web address] [id number] ASHLEY HYLTON MD 05/02/2005 10:0 1 AM CDT Francheska Emmanuel MD CHEMISTRY ORDERABLES Final Re sult Performing Organization Address [facility] Phone Number INTERFACE SYSTEM Refer to clinic/hospital department * RPR (05/02/2005 10:01 AM CDT) RPR NON-REACT JANELLE NON-REACT JANELLE INTERFACE SYSTEM Comment: Lab test performed by: [id number] [id number] ASHLEY HYLTON MD 05/02/2005 10:0 1 AM CDT Francheska Emmanuel MD CHEMISTRY ORDERABLES Final Re sult Performing Organization Address [facility] Phone Number INTERFACE SYSTEM Refer to clinic/hospital department documented in this encounter Visit Diagnoses Diagnosis Supervision of normal first - Primary documented in this encounter Care Teams Manufactured Buildings Repairer Relationship Specialty Start Date End Date Carmelo Lozada MD [address] [place] [address] PCP - General Family Practice 04/03/19 documented as of this encounter
--- OUTSIDE RECORDS SUMMARY | 2025-03-16 08:14 | XMS_ITS | Encounter Summary ---
Author Organization [facility] Address [address] [place] [address] Care Team Providers Care Sizing Machine Operator Name Role Phone Carmelo Lozada MD Primary Care Provider +1 [phone] Encounter Details Date Type Department Care Team (Late st Contact Info) Description 12/13/2005 Outpatient Historical [facility] [address] [facility] [address] [place] [address] Brayden Morrissey MD [address] [place] [address] [address] [place] [address] Social History Tobacco Use Types Packs/Day Years Used Date Smoking Tobacco: Never Assessed Comments Unknown Sex and Gender Information Value Date Recorded Sex Assigned at Not on file Legal Sex Female 3:22 AM COPPER PLATER Gender Identity Not on file Sexual Orientation Not on file documented as of this encounter Plan of Treatment Not on file documented as of this encounter Visit Diagnoses Not on filedocumented in this encounter Care Teams Sizing Machine Operator Relationship Specialty Start Date End Date Carmelo Lozada MD [address] [place] [address] PCP - General Family Practice 04/03/19 documented as of this encounter
--- OUTSIDE RECORDS SUMMARY | 2025-03-16 08:14 | XMS_ITS | Encounter Summary ---
Author Organization [facility] Address [address] [place] [address] Care Team Providers Care Sap Sd Analyst Name Role Phone Carmelo Lozada MD Primary Care Provider +1 [phone] Encounter Details Date Type Department Care Team (Late st Contact Info) Description 10/19/2005 Outpatient Historical [facility] [address] [place] [phone] Francheska Emmanuel MD [address] [place] [phone] Social History Tobacco Use Types Packs/Day Years Used Date Smoking Tobacco: Never Assessed Comments Unknown Sex and Gender Information Value Date Recorded Sex Assigned at Not on file Legal Sex Female 3:22 AM RAILROAD BRAKE REPAIRER Gender Identity Not on file Sexual Orientation Not on file documented as of this encounter Plan of Treatment Not on file documented as of this encounter Visit Diagnoses Not on filedocumented in this encounter Care Teams Sap Sd Analyst Relationship Specialty Start Date End Date Carmelo Lozada MD [address] [place] [address] PCP - General Family Practice 04/03/19 documented as of this encounter
--- OUTSIDE RECORDS SUMMARY | 2025-03-16 08:14 | XMS_ITS | Encounter Summary ---
Author Organization [facility] Address [address] [place] [address] Care Team Providers Care Electrolytic Etcher Name Role Phone Carmelo Lozada MD Primary Care Provider +1 [phone] Encounter Details Date Type Department Care Team (Late st Contact Info) Description 11/15/2005 Outpatient Historical [facility] [address] [facility] [address] [place] [address] Guy Saldivar MD [address] [place] [address] [address] [place] [address] Social History Tobacco Use Types Packs/Day Years Used Date Smoking Tobacco: Never Assessed Comments Unknown Sex and Gender Information Value Date Recorded Sex Assigned at Not on file Legal Sex Female 3:22 AM GRAIN OPERATIONS MANAGER Gender Identity Not on file Sexual Orientation Not on file documented as of this encounter Plan of Treatment Not on file documented as of this encounter Visit Diagnoses Not on filedocumented in this encounter Care Teams Electrolytic Etcher Relationship Specialty Start Date End Date Carmelo Lozada MD [address] [place] [address] PCP - General Family Practice 04/03/19 documented as of this encounter
--- OUTSIDE RECORDS SUMMARY | 2025-03-16 08:14 | XMS_ITS | Encounter Summary ---
Author Organization [facility] Address [address] [place] [address] Care Team Providers Care Hydraulics Teacher Name Role Phone Carmelo Lozada MD Primary Care Provider +1 [phone] Encounter Details Date Type Department Care Team (Late st Contact Info) Description 05/31/2005 Outpatient Historical [facility] [address] [facility] [address] [place] [address] Guy Saldivar MD [address] [place] [address] [address] [place] [address] Social History Tobacco Use Types Packs/Day Years Used Date Smoking Tobacco: Never Assessed Comments Unknown Sex and Gender Information Value Date Recorded Sex Assigned at Not on file Legal Sex Female 3:22 AM TECHNICIAN Gender Identity Not on file Sexual Orientation Not on file documented as of this encounter Plan of Treatment Not on file documented as of this encounter Visit Diagnoses Not on filedocumented in this encounter Care Teams Hydraulics Teacher Relationship Specialty Start Date End Date Carmelo Lozada MD [address] [place] [address] PCP - General Family Practice 04/03/19 documented as of this encounter
--- OUTSIDE RECORDS SUMMARY | 2025-03-16 08:14 | XMS_ITS | Encounter Summary ---
Author Organization [facility] Address [address] [place] [address] Care Team Providers Care Building Maintenance Worker Name Role Phone Carmelo Lozada MD Primary Care Provider +1 [phone] Encounter Details Date Type Department Care Team (Late st Contact Info) Description 10/04/2005 Outpatient Historical [facility] [address] [facility] [address] [place] [address] Guy Saldivar MD [address] [place] [address] [address] [place] [address] Social History Tobacco Use Types Packs/Day Years Used Date Smoking Tobacco: Never Assessed Comments Unknown Sex and Gender Information Value Date Recorded Sex Assigned at Not on file Legal Sex Female 3:22 AM EDUCATION AND OUTREACH COORDINATOR Gender Identity Not on file Sexual Orientation Not on file documented as of this encounter Plan of Treatment Not on file documented as of this encounter Visit Diagnoses Not on filedocumented in this encounter Care Teams Building Maintenance Worker Relationship Specialty Start Date End Date Carmelo Lozada MD [address] [place] [address] PCP - General Family Practice 04/03/19 documented as of this encounter
--- OUTSIDE RECORDS SUMMARY | 2025-03-16 08:14 | XMS_ITS | Encounter Summary ---
Author Organization [facility] Address [address] [place] [address] Care Team Providers Care College Sports Coach Name Role Phone Carmelo Lozada MD Primary Care Provider +1 [phone] Encounter Details Date Type Department Care Team (Late st Contact Info) Description 12/06/2005 Outpatient Historical [facility] [address] [facility] [address] [place] [address] Guy Saldivar MD [address] [place] [address] [address] [place] [address] Social History Tobacco Use Types Packs/Day Years Used Date Smoking Tobacco: Never Assessed Comments Unknown Sex and Gender Information Value Date Recorded Sex Assigned at Not on file Legal Sex Female 3:22 AM PCT Gender Identity Not on file Sexual Orientation Not on file documented as of this encounter Plan of Treatment Not on file documented as of this encounter Visit Diagnoses Not on filedocumented in this encounter Care Teams College Sports Coach Relationship Specialty Start Date End Date Carmelo Lozada MD [address] [place] [address] PCP - General Family Practice 04/03/19 documented as of this encounter
--- OUTSIDE RECORDS SUMMARY | 2025-03-16 08:14 | XMS_ITS | Encounter Summary ---
Author Organization [facility] Address [address] [place] [address] Care Team Providers Care Network Systems Administrator Name Role Phone Carmelo Lozada MD Primary Care Provider [phone] [phone] Encounter Details Date Type Department Care Team (Late st Contact Info) Description 06/27/2005 Outpatient Historical [facility] [address] [place] [phone] Francheska Emmanuel MD [address] [place] [address] Social History Tobacco Use Types Packs/Day Years Used Date Smoking Tobacco: Never Assessed Comments Unknown Sex and Gender Information Value Date Recorded Sex Assigned at Not on file Legal Sex Female 3:22 AM TECHNOLOGY INTERN Gender Identity Not on file Sexual Orientation Not on file documented as of this encounter Plan of Treatment Not on file documented as of this encounter Visit Diagnoses Not on filedocumented in this encounter Care Teams Network Systems Administrator Relationship Specialty Start Date End Date Carmelo Lozada MD [address] [place] [address] PCP - General Family Practice 04/03/19 documented as of this encounter
--- OUTSIDE RECORDS SUMMARY | 2025-03-16 08:14 | XMS_ITS | Encounter Summary ---
Author Organization [facility] Address [address] [place] [address] Care Team Providers Care Driller And Broacher Name Role Phone Carmelo Lozada MD Primary Care Provider [phone] Encounter Details Date Type Department Care Team (Latest Contact Info) Description 05/31/2005 Outpatient Historical [facility] Guy Saldivar MD [address] [place] [address] PAP SMEAR OF CERVIX W ASCUS (Primary Dx) Social History Tobacco Use Types Packs/Day Years Used Date Smoking Tobacco: Never Assessed Comments Unknown Sex and Gender Information Value Date Recorded Sex Assigned at Not on file Legal Sex Female 3:22 AM VULNERABILITY RESEARCHER Gender Identity Not on file Sexual Orientation Not on file documented as of this encounter Plan of Treatment Not on file documented as of this encounter Visit Diagnoses Diagnosis Papanicolaou smear of cervix with atypical squamous cells of undetermined significance (ASC-US)- Primary documented in this encounter Care Teams Driller And Broacher Relationship Specialty Start Date End Date Carmelo Lozada MD [address] [place] [address] PCP - General Family Practice 04/03/19 documented as of this encounter
--- OUTSIDE RECORDS SUMMARY | 2025-03-16 08:14 | XMS_ITS | Encounter Summary ---
Author Organization [facility] Address [address] [place] [address] Care Team Providers Care Weather Algorithm Scientist Name Role Phone Carmelo Lozada MD Primary Care Provider [phone] Encounter Details Date Type Department Care Team (Latest Contact Info) Description 12/13/2005 Outpatient Historical [facility] Guy Saldivar MD [address] [place] [address] Other Specified Complication, Antepartum (Primary Dx) Social History Tobacco Use Types Packs/Day Years Used Date Smoking Tobacco: Never Assessed Comments Unknown Sex and Gender Information Value Date Recorded Sex Assigned at Not on file Legal Sex Female 3:[address]PERVISOR Gender Identity Not on file Sexual [...] URINE ORDERABLES Final Result Performing Organization Address [facility] Phone Number INTERFACE SYSTEM Refer to clinic/hospital [...] URINE ORDERABLES Final Result Performing Organization Address [facility] Co id Phone Number INTERFACE SYSTEM Refer to clinic/hospital [...] ORDERABLES Final R esult Performing Organization Address City/[facility] Co de Phone Number INTERFACE SYSTEM [...] ORDERABLES Final R esult Performing Organization Address City/[facility]/ZIP Co de Phone Number INTERFACE SYSTEM Refer [...] ORDERABLES Final Re sult Performing Organization Address [facility] de Phone Number INTERFACE SYSTEM Refer to clinic/hospital department * URIC ACID (12/13/2005 9:30 AM CDT) URIC ACID 3.2 2.3 - 6.6 mg/dL INTERFACE SYSTEM 12/13/2005 9:30 AM CDT us Brayden Morrissey MD CHEMISTRY ORDERABLES Final Re sult Performing Organization Address [facility] Phone Number INTERFACE SYSTEM Refer to clinic/hospital department documented in this encounter Visit Diagnoses Diagnosis Other specified complication, antepartum(646.83)- Primary Other specified complication, antepartum documented in this encounter Care Teams Weather Algorithm Scientist Relationship Specialty Start Date End Date Carmelo Lozada MD [address] [place] [phone] PCP - General Family Practice 04/03/19 documented as of this encounter
--- OUTSIDE RECORDS SUMMARY | 2025-03-16 08:14 | XMS_ITS | Encounter Summary ---
Author Organization [facility] Address 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
--- OUTSIDE RECORDS SUMMARY | 2025-03-16 08:14 | XMS_ITS | Encounter Summary ---
Author Organization [facility] Address [address] [place] [address] Care Team Providers Care Brush Stainer Name Role Phone Carmelo Lozada MD Primary Care Provider [phone] [phone] Encounter Details Date Type Department Care Team (Late st Contact Info) Description 12/13/2005 Outpatient Historical [facility] [address] [place] [address] [address] [place] [address] Guy Saldivar MD [address] [place] [address] [address] [place] [address] Social History Tobacco Use Types Packs/Day Years Used Date Smoking Tobacco: Never Assessed Comments Unknown Sex and Gender Information Value Date Recorded Sex Assigned at Not on file 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
--- OUTSIDE RECORDS SUMMARY | 2025-03-16 08:14 | XMS_ITS | Encounter Summary ---
Author Organization [employer] Address [address] [place] [address] Care Team Providers Care Microsystems Engineer Name Role Phone Carmelo Lozada MD Primary Care Provider [phone] Encounter Details Date Type Department Care Team (Late st Contact Info) Description 03/13/2007 Emergency [facility] Tee Jones [facility] 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
--- OUTSIDE RECORDS SUMMARY | 2025-03-16 08:14 | XMS_ITS | Encounter Summary ---
Author Organization [facility] Address [address] [place] [address] Care Team Providers Care Corporate Vp Advertising & Online Name Role Phone Carmelo Lozada MD Primary Care Provider [phone] Encounter Details Date Type Department Care Team (Late st Contact Info) Description 03/21/2006 Outpatient Historical [facility] [address] [facility] [address] [place] [address] Guy Saldivar MD [address] [place] [address] [address] [place] [address] Social History Tobacco Use Types Packs/Day Years Used Date Smoking Tobacco: Never Assessed Comments Unknown Sex and Gender Information Value Date Recorded Sex Assigned at Not on file 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
--- OUTSIDE RECORDS SUMMARY | 2025-03-16 08:14 | XMS_ITS | Encounter Summary ---
Author Organization [facility] Address [address] [place] [address] Care Team Providers Care Business Analytics Intern Name Role Phone Carmelo Lozada MD Primary Care Provider [phone] [phone] Encounter Details Date Type Department Care Team (Late st Contact Info) Description 11/29/2005 Outpatient Historical [facility] [address] 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
--- OUTSIDE RECORDS SUMMARY | 2025-03-16 08:14 | XMS_ITS | Encounter Summary ---
Author Organization [facility] Address [address] [place] [address] Care Team Providers Care Fire Lookout Name Role Phone Carmelo Lozada MD Primary Care Provider +1 [phone] Encounter Details Date Type Department Care Team (Late st Contact Info) Description 08/15/2005 Outpatient Historical [facility] [address] [place] [address] Francheska Emmanuel MD [address] [place] [address] Social History Tobacco Use Types Packs/Day Years Used Date Smoking Tobacco: Never Assessed Comments Unknown Sex and Gender Information Value Date Recorded Sex Assigned at Not on file 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
--- OUTSIDE RECORDS SUMMARY | 2025-03-16 08:14 | XMS_ITS | Encounter Summary ---
Author Organization [facility] Address [address] [place] [address] Care Team Providers Care Weight Recorder Name Role Phone Carmelo Lozada MD Primary Care Provider +1 [phone] Encounter Details Date Type Department Care Team (Latest Contact Info) Description 11/29/2005 Outpatient Historical [facility] Guy Saldivar MD [address] [place] [address] Other Specified Complication, Antepartum (Primary Dx) Social History Tobacco Use Types Packs/Day Years Used Date Smoking Tobacco: Never Assessed Comments Unknown Sex and Gender Information Value Date Recorded Sex Assigned at Not on file Legal Sex Female 3:22 AM CAN DRYER Gender Identity Not on file Sexual Orientation [...] URINE ORDERABLES Final Result Performing Organization Address [facility] Co de Phone Number INTERFACE SYSTEM [...] URINE ORDERABLES Final Result Performing Organization Address [facility]/ZIP Co de Phone Number INTERFACE SYSTEM Refer [...] ORDERABLES Final Resu lt Performing Organization Address [facility] Co de Phone Number INTERFACE SYSTEM Refer to clinic/hospital department * URIC ACID (11/29/2005 9:30 AM CDT) URIC ACID 3.2 2.3 - 6.6 mg/dL INTERFACE SYSTEM 11/29/2005 9:30 AM CDT Guy Saldivar MD CHEMISTRY ORDERABLES Final Resu lt Performing Organization Address [facility] de Phone Number INTERFACE SYSTEM Refer to clinic/hospital department documented in this encounter Visit Diagnoses Diagnosis Other specified complication, antepartum(646.83)- Primary Other specified complication, antepartum documented in this encounter Care Teams Weight Recorder Relationship Specialty Start Date End Date Carmelo Lozada MD [address] [place] [address] PCP - General Family Practice 04/03/19 documented as of this encounter
--- OUTSIDE RECORDS SUMMARY | 2025-03-16 08:14 | XMS_ITS | Encounter Summary ---
Author Organization [employer] Address 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
[2025-03-16 13:14] LABS: Hematocrit 42.8 % (37.0-47.0); Hemoglobin 14.3 g/dL (12.0-15.0); Immature Granulocyte Percent A 0.4 % (0-0.5); Lymphocytes Absolute Auto 1.74 K/mm3 (0.9-3.2); Mean Corpuscular HGB Conc 33.4 g/dl (32-36); Mean Corpuscular Hemoglobin 31.2 pg (26-34); Mean Corpuscular Volume 93.2 fl (80-100); Nucleated Red Blood Cells Absolute Auto 0.000 K/mm3 (0.0-0.012); Nucleated Red Blood Cells Perc 0.0 % (0.0-0.2); Platelet Count Result 265 k/mm3 (150-375); Red Blood Count 4.59 M/mm3 (4.2-5.4); White Blood Count 5.6 K/mm3 (4.5-10.0)
[2025-03-16 13:21] LABS: Alanine Aminotransferase 19 U/L (6-35); Albumin Level 4.6 g/dL (3.5-5.1); Alkaline Phosphatase 52 U/L (38-126); Anion Gap 7 mmol/L (4-12); Aspartate Amino Transferase 41 U/L (14-36); Bilirubin,Total 1.0 mg/dL (0.2-1.3); Blood Urea Nitrogen 9 mg/dL (7-17); Calcium 9.1 mg/dL (8.4-10.2); Carbon Dioxide 26 mmol/L (22-30); Chloride 105 mmol/L (98-107); Cholesterol 200 mg/dL (0-200); Estimated Glomerular Filt Rate > 60; Glucose 90 mg/dL (65-110); HDL Direct 64 mg/dL; Potassium 3.9 mmol/L (3.4-5.0); Sodium 138 mmol/L (137-145); Total Protein 7.5 g/dL (6.3-8.2); Triglycerides 38 mg/dL (<150)
[2025-03-16 13:52] LABS: Thyroid Stimulating Hormone Reflex 0.954 uIU/mL (0.465-4.68)
[2025-03-16 14:15] LABS: Vitamin B12 560.0 pg/mL (239-931)
[2025-03-16 21:35] LABS: Hemoglobin A1C 5.2 % (<5.7)
== END 2025-03-16 08:02 | disposition home or self-care (01) ==
LOC: ANHGOSHLAB 08:02
PROVIDERS: PCP Family Medicine; Visit Provider Family Medicine
DX: R74.8 Abnormal levels of other serum enzymes (principal); E55.9 Vitamin D deficiency, unspecified; Z00.00 Encounter for general adult medical examination without abnormal findings; E78.5 Hyperlipidemia, unspecified; G43.911 Migraine, unspecified, intractable, with status migrainosus; F41.9 Anxiety disorder, unspecified; L65.9 Nonscarring hair loss, unspecified; R59.0 Localized enlarged lymph nodes; R73.9 Hyperglycemia, unspecified; E53.8 Deficiency of other specified B group vitamins
CPT/HCPCS: 36415; 80053; 80061; 82306; 82607; 83036; 84443; 85025

== ENCOUNTER 2025-03-21 10:33 | Emergency (ER) | payer OTHER, SELFPAY ==
[2025-03-21 10:41] VITALS: BP 107/54; PULSE 68; RESP 20; TEMP 36.7; O2SAT 100
--- NOTE | 2025-03-21 10:55 | ED.FEMALEGU ---
HPI - Female Genitourinary General Chief complaint: Urogenital-Female Stated complaint: discharge/burning when peeing Time Seen by Provider: 03/21/25 10:46 Source: patient and RN notes reviewed Mode of arrival: ambulatory Limitations: no limitations History of Present Illness HPI Narrative: Patient presents today complaining of thick white vaginal discharge and vulvar swelling yesterday with increased amount of discharge today. States she had a vaginal yeast infection in July of this year as well as 6 weeks ago and symptoms appear similar. No OTC treatment prior to arrival. States she has not been sitting in wet clothes, changes sweaty close as soon as possible after exercising, wears cotton underwear. She is not diabetic. She does have a visit with her OBGYN scheduled in 2 weeks. Related Data Home Medications ?Medication ?Instructions ?Recorded ?Confirmed ?Last Taken ?Type erenumab-aooe 140 mg/mL 140 mg subcut MONTHLY 05/18/20 03/16/25 Unknown History subcutaneous auto-injector (Aimovig Autoinjector) sumatriptan succinate 100 mg See Rx Instructions PO .COMPLEX 05/18/20 03/16/25 Unknown History tablet (Imitrex) ubrogepant 50 mg tablet (Ubrelvy) 100 mg PO PRN 08/19/24 03/16/25 Unknown History Allergies Allergy/AdvReac Type Severity Reaction Status Date / Time Sulfa (Sulfonamide Allergy Unknown Unknown Verified 03/21/25 10:39 Antibiotics) amitriptyline AdvReac Unknown Hallucinati Verified 03/21/25 10:39 ons sulfasalazine AdvReac Unknown Hallucinati Verified 03/21/25 10:39 ons PMFSH Past Medical History Medical History Attention deficit disorder (ADD) Anxiety Intermittent asthma without complication Migraine, unspecified, intractable, with status migrainosus Surgical History Surgical History History of cholecystectomy History of decompression of ulnar nerve Family History Family History Father Diabetes mellitus Hypertension Family history of malignant neoplasm Mother Hypertension Social History Social History Social History: Caffeine- coffee Smoking status: Former smoker Smoking end date: 07/30/09 Alcohol intake: never Substance use: never Substance use type: does not use Lack of Transportation: No Lack of Food: Never True Current Housing: I Have Housing Concerned About Future Housing: No Difficulty Paying Gas/Electric Bills: No Difficulty Paying for Meds: No Currently Unemployed: No Education: High School Diploma/GED Difficulty w/ Childcare or Family Care: No Agree to blood products: Yes Comments At time of signature, I have reviewed and agree with nursing past medical, surgical, social and family history unless otherwise noted. Please see nursing chart for further information. There is no relevant family history pertinent to the presenting complaint Exam Narrative: GENERAL: Well-appearing, well-nourished, and in no acute distress. HEAD: Normocephalic, atraumatic. EYES: EOMI. No redness or drainage. Conjunctivae normal. ENT: Mucous membranes pink and moist. NECK: Normal AROM. CHEST: No respiratory distress. : Patient declines exam and swabs. EXTREMITIES: Normal range of motion. No edema. SKIN: Warm, dry, no rash. Capillary refill normal. Normal skin turgor. NEURO: No focal deficits. Alert and oriented x3. Gait steady. PSYCH: Normal affect. No signs of depression or anxiety. Course Course Level of Care: Express Care Visit Vital Signs Vital signs: Vital Signs Temperature 98.1 F 03/21/25 10:41 Pulse Rate 68 03/21/25 10:41 Respiratory Rate 20 03/21/25 10:41 Blood Pressure 107/54 L 03/21/25 10:41 Pulse Oximetry 100 03/21/25 10:41 Oxygen Delivery Room Air 03/21/25 10:41 Temperature 98.1 F 03/21/25 10:41 Pulse Rate 68 03/21/25 10:41 Respiratory Rate 20 03/21/25 10:41 Blood Pressure 107/54 L 03/21/25 10:41 Pulse Oximetry 100 03/21/25 10:41 Oxygen Delivery Room Air 03/21/25 10:41 Reviewed MDM - Female Genitourinary MDM Narrative Medical decision making narrative: 34-year-old female presents today with thick white vaginal discharge and vulvar irritation since yesterday, worse today. States symptoms feel similar to vaginal yeast infection that occurred in July as well as 6 weeks ago. No OTC treatment prior to arrival. Patient defers examination today. After discussion, declines swab for bacterial vaginosis as well. She has an appointment with her OBGYN in 2 weeks. Prescription for fluconazole sent to pharmacy. Discussed other measures to decrease moisture against the body. Also suggested topical clotrimazole for a vulvar irritation. Patient agrees with plan. Vital signs stable. Anticipatory guidance given. Differential Diagnosis Differential diagnosis: Likely urinary tract infection, bacterial vaginosis, vaginitis and cystitis Critical Care Time Critical Care Time Critical Care Time: No Discharge Plan Discharge Clinical Impression: Vaginitis Qualifiers: Chronicity: acute Qualified Code(s): N76.0 - Acute vaginitis Patient Disposition: Home Condition: Stable Instructions: Yeast Infection (ED) Additional Instructions: Please take the fluconazole as directed. If you are having too much external irritation, you may use some topical clotrimazole cream, (brand name Lotrimin) to help with this. Follow-up with your OBGYN as scheduled if symptoms persist. Patient Language: [place] Prescriptions: New fluconazole 150 mg tablet 150 mg PO Q3D Qty: 2 0RF No Action Aimovig Autoinjector 140 mg/mL auto-injector 140 mg subcut MONTHLY sumatriptan succinate [Imitrex] 100 mg tablet See Rx Instructions PO .COMPLEX Rx Instructions: take 1 tab at onset of headache; if no relief, may repeat 1 tab after at least 2 hrs; max = 2 tabs/24 hrs PO albuterol sulfate [ProAir HFA] 90 mcg/actuation HFA aerosol inhaler 1 inh inhalation Q4H PRN (Reason: shortness of breath or wheezing) Qty: 6.7 5RF Ubrelvy 50 mg tablet 100 mg PO PRN lorazepam 0.5 mg tablet 0.5 mg PO DAILY PRN (Reason: anxiety) Qty: 30 0RF dextroamphetamine-amphetamine [Adderall XR] 10 mg capsule,extended release 24hr 10 mg PO DAILY Qty: 30 0RF buspirone 5 mg tablet 5 mg PO TID Qty: 270 1RF fluoxetine 10 mg capsule 10 mg PO DAILY Qty: 90 1RF Follow-up/Referrals: Sloane Max MD [Primary Care Provider, Family Practice] Time of Disposition: 10:55
== END 2025-03-21 10:57 | disposition home or self-care (01) ==
PROVIDERS: Emergency Provider Nurse Practitioner; PCP Family Medicine
DX: N76.0 Acute vaginitis (principal); Z87.891 Personal history of nicotine dependence; J45.909 Unspecified asthma, uncomplicated; F98.8 Other specified behavioral and emotional disorders with onset usually occurring in childhood and adolescence; F41.9 Anxiety disorder, unspecified
CPT/HCPCS: 99213; G0463